=== PATIENT | female | born 1995 | race Caucasian/White ===

== ENCOUNTER 2018-02-21 13:52 | Outpatient (CLI) | payer OTHER ==
[2018-02-21 15:39] VITALS: BP 112/68; PULSE 106; RESP 18; TEMP 97.4
--- NOTE | 2018-02-21 19:15 | P.MSEPDOC ---
Presenting Problems - Arrival Data Date of Arrival on Unit: 02/21/18 Time of Arrival on Unit: 14:50 Mode of Transport: Ambulatory - Complaint OB-Reason for Admission/Chief Complaint: Possible Onset of Labor Comment: reports with contrcations for past hour and loss of mucus plug Medical History - Information : 1 Para: 0 Term: 0 : 0 Abortions: Spontaneous or Elective: 0 Number of Living Children: 0 - Gestational Age Gestational Age by JAYSON (wks/days): 35 Weeks and 5 Days Review of Systems - Review of Systems Constitutional: No problems Breast: No problems ENT: No problems Cardiovascular: No problems Respiratory: No problems Gastrointestinal: No problems Genitourinary: No problems Musculoskeletal: No problems Neurological: No problems Skin: No problems Vital Signs - Temperature Temperature: 97.4 F Temperature Source: Temporal Artery Scan - Pulse Pulse Oximetery Pulse Rate: 106 Pulse Assessment Method: Pulse Oximetry - Respirations Respiratory Rate: 18 Oxygen Delivery Method: Room Air - Blood Pressure Right Arm Blood Pressure: 112/68 Blood Pressure Mean: 82 Blood Pressure Source: Automatic Cuff Medical Screen Scoring (Pre) - Cervical Exam Dilation: 1-3 cm = 1 Effacement: Exam Deferred Membranes: Intact - Uterine Contractions Frequency: N/A Duration: N/A Intensity: N/A - Maternal Vital Signs Maternal Temperature: N/A Maternal Blood Pressure: N/A Signs of Preeclampsia: N/A Maternal Respirations: N/A - Pain Assessment Pain Location and Character: Abdomen Pain Scale Used: Numeric (1 - 10) Pain Intensity: 5 Pain Description: *Acute Pain Frequency: Intermittent Pain Duration: 1 Pain Duration Units: Hours Pain Behavior: None Exhibited Pain Aggravating Factors: Contractions - Maternal Trauma Maternal Trauma: N/A - Assessment Baseline FHR: 140 Heart Rate - NICHD Category: Category I (Normal) = 0 NST: Reactive Position: N/A Station: N/A - Total Score Total Score (Pre): 1 - Level of Risk Level of Risk: Low (0-5) Physician Notification (Pre) - Physician Notified Physician Notified Date: 02/21/18 Physician Notified Time: 15:06 Physician/Practitioner Notifed:: francine Spoke With: francine New Order Received: Yes - Notification Comment Comment: reported pt visit with irregular contractions and no cervical change after one hour, reactive nst. pt may be discharged home Disposition - Disposition OB Disposition: Discharge to home Discharge Date: 02/21/18 Discharge Time: 15:15 I agree with the RN Medical Screening Exam: Yes Risk & Benefit of care provided described in d/c instruction: Yes Diagnosis: FALSE LABOR BEFORE 37 COMPLETED WEEKS OF GEST, THIRD TRI
== END 2018-02-21 15:15 | disposition home or self-care (01) ==
LOC: FBPOP 13:52
PROVIDERS: ATTEND Obstetrics & Gynecology
DX: O47.03 False labor before 37 completed weeks of gestation, third trimester (principal); Z3A.35 35 weeks gestation of pregnancy
CPT/HCPCS: 59025; 99213

== ENCOUNTER 2018-03-07 09:35 | Inpatient (IN) | payer OTHER ==
[2018-03-07] MEDS ORDERED: TERBUTALINE 1 MG/ML VIAL SQ PRN (10:47)
[2018-03-07] MEDS ORDERED: METHYLERGONOVINE 0.2 MG/ML 1 ML AMP IM PRN (10:47)
[2018-03-07] MEDS ORDERED: CARBOPROST TROMETHAMINE 250 MCG/ML 1 ML AMP IM PRN (10:47)
[2018-03-07] MEDS ORDERED: LIDOCAINE 1% (PF) 10 MG/ML (30 ML SDV) SQ PRN (10:47)
[2018-03-07] MEDS ORDERED: BUTORPHANOL 1 MG/ML 1 ML VIAL IV PRN (10:47)
[2018-03-07] MEDS ORDERED: OXYTOCIN 10 UNIT/ML 1 ML VIAL IM PRN (10:47)
[2018-03-07] MEDS ORDERED: OXYTOCIN 20 UNITS/1000 ML NS 1,000 ML IV SCH ×2 (11:00→17:51)
[2018-03-07] MEDS: LACTATED RINGERS 1,000 ML IV SCH ×2 (11:30→15:03)
[2018-03-07 12:11] LABS: Basophils % (A) 0 %; Eosinophils # (A) 0.1 k/uL (0-0.7); Eosinophils % (A) 1 %; HCT 34.1 % (34.0-46.0); HGB 11.1 gm/dL (11.4-16.0); Hypochromasia Slight; Lymphocytes # (A) 1.6 k/uL (1.0-4.8); Lymphocytes % (A) 17 %; MCH 27.2 pg (25.0-35.0); MCHC 32.4 g/dL (31.0-37.0); MCV 83.9 fL (80.0-100.0); Mean Platelet Volume 8.3; Monocytes # (A) 0.7 k/uL (0-1.0); Monocytes % (A) 7 %; Neutrophils # (A) 7.1 k/uL (1.3-7.7); Neutrophils % (A) 74 %; Platelet Count 234 k/uL (150-450); RBC 4.07 m/uL (3.80-5.40); WBC 9.6 k/uL (3.8-10.6)
--- NOTE | 2018-03-07 12:40 | P.HPOB ---
History of Present Illness H&P Date: 03/07/18 Chief Complaint: Spontaneous rupture of membranes This is a 22-year-old female 1 para 0 with an estimated date of confinement of 03/23/2018, estimated gestational age of 37-5/7 weeks, who presents to labor and delivery with complaints of spontaneous rupture of membranes with clear fluid at approximately 7 AM this morning. She complains of irregular contractions. care initially was in [place] and then she transferred care to Dr. Oneal at approximately 31 weeks. Her course has been essentially uncomplicated other than she did not get her 1 hour Glucola done. She did have a hemoglobin A1c drawn last week and the results are pending. labs: Blood type-O positive Antibody screen-negative HIV-nonreactive Hepatitis B surface antigen-negative RPR-nonreactive Rubella-immune Varus a-immune Pap smear-within normal limits GC/chlamydia-negative Hemoglobin-13.2 Group B streptococcus-negative Obstetrical history: . Review of Systems Constitutional: Denies chills, Denies fever Eyes: denies blurred vision, denies pain Ears, nose, mouth and throat: Denies headache, Denies sore throat Cardiovascular: Denies chest pain, Denies shortness of breath Respiratory: Denies cough Gastrointestinal: Reports abdominal pain (Irregular contractions) Genitourinary: Reports pelvic pain, Reports Musculoskeletal: Reports low back pain Neurological: Denies numbness, Denies weakness Psychiatric: Reports anxiety, Reports depression Past Medical History Past Medical History: Thyroid Disorder History of Any Multi-Drug Resistant Organisms: None Reported Past Surgical History: No Surgical Hx Reported Past Anesthesia/Blood Transfusion Reactions: No Reported Reaction Past Psychological History: Anxiety, Depression Smoking Status: Never smoker Past Alcohol Use History: None Reported Past Drug Use History: None Reported - Past Family History Mother Family Medical History: No Reported History Medications and Allergies Home Medications Medication Instructions Recorded Confirmed Type Escitalopram [Lexapro] 10 mg PO DAILY 02/21/18 03/07/18 History RX: Levothyroxine Sodium 25 mcg PO DAILY 02/21/18 03/07/18 History Pnv No.95/Ferrous Fum/Folic AC 1 each PO DAILY 03/07/18 03/07/18 History [ Multivitamin Tablet] Allergies Allergy/AdvReac Type Severity Reaction Status Date / Time gluten Allergy Nausea & Verified 03/07/18 09:52 Vomiting Exam Osteopathic Statement: *. No significant issues noted on an osteopathic structural exam other than those noted in the History and Physical/Consult. Vital Signs Temp Pulse Resp BP Pulse Ox 03/07/18 10:40 98.5 F 81 16 116/69 100 Intake and Output 03/06/18 03/07/18 03/07/18 22:59 06:59 14:59 Other: # Voids 2 Weight 63.957 kg HEENT: Within normal limits Heart: Regular rate and rhythm Lungs: Clear to auscultation bilaterally Abdomen: Cervix: Initially in triage is 2-3 cm/80%/-2 station with positive amnisure and clear fluid noted. heart tones: Reactive Contractions: Every 2-5 minutes Extremities: Negative Homans Results Result Diagrams: 03/07/18 11:32 Abnormal Lab Results - Last 24 Hours (Table) 03/07/18 Range/Units 11:32 Hgb 11.1 L (11.4-16.0) gm/dL Assessment and Plan (1) 37 weeks gestation of Current Visit: Yes Status: Acute Code(s): Z3A.37 - 37 WEEKS GESTATION OF SNOMED Code(s): 02829811 Plan: Admission for early active labor. Oxytocin augmentation of labor. Epidural anesthesia if desired.
[2018-03-07] MEDS ORDERED: ROPIVACAINE 5MG/ML 20ML VIAL ONE (15:15)
[2018-03-07] MEDS ORDERED: fentaNYL (PF) 50 MCG/ML 5 ML AMP ONE (15:15)
[2018-03-07] MEDS ORDERED: SODIUM CHLORIDE 0.9% 100 ML BAG ONE (15:15)
--- NOTE | 2018-03-07 17:09 | P.PROBDLV ---
Vaginal Delivery Note - . Vaginal Delivery Note: The patient progressed to complete dilation after oxytocin augmentation of labor. There was a small bag of water that was still palpated that was ruptured with clear fluid noted also. She did receive epidural anesthesia. Once reaching complete dilation, she began pushing. Infant's head came to a crown. With one further push the 's head delivered across the perineum in a right occiput anterior lie. After delivery the anterior shoulder, nose and mouth were bulb suctioned. With one further push the remainder the easily delivered reducing nuchal cord around the infant's body with delivery. Infant was placed on mother's abdomen and cord was clamped and cut. Infant was taken to warmer for evaluation. A viable male is noted with scores of 8 at 1 minute and 9 at 5 minutes. Infant weight is pending at this time. Placenta delivered shortly thereafter, intact with a three-vessel cord. Uterus contracted well after oxytocin was given and uterine massage was carried out. Inspection of the perineum revealed bilateral periurethral abrasions that were noted to be hemostatic. Estimated blood loss is approximately 150 mL's. Both mother and infant are in stable condition.
[2018-03-07] MEDS ORDERED: diphenhydrAMINE 50 MG CAP PO PRN (17:51)
[2018-03-07] MEDS ORDERED: BENZOCAINE/MENTHOL SPRAY 1 GM/SPRAY AEROSOL TOPICAL PRN (17:51)
[2018-03-07] MEDS ORDERED: WITCH HAZEL 1 EACH MED..PAD TOPICAL PRN (17:51)
[2018-03-07] MEDS ORDERED: ZOLPIDEM 5 MG TAB PO PRN (17:51)
[2018-03-07] MEDS ORDERED: LANOLIN CREAM 5 GM TUBE TOPICAL PRN (17:51)
[2018-03-07] MEDS ORDERED: ACETAMINOPHEN TAB 325 MG TAB PO PRN (17:51)
[2018-03-07] MEDS ORDERED: diphenhydrAMINE 25 MG CAP PO PRN (17:51)
[2018-03-07] MEDS ORDERED: diphenhydrAMINE 50 MG/ML 1 ML VIAL IVP PRN ×2 (17:51)
[2018-03-07] MEDS ORDERED: SIMETHICONE 80 MG CHEWABLE PO PRN (17:51)
[2018-03-07] MEDS ORDERED: HYDROCORTISONE 2.5% RECTAL CREAM 30 GM TUBE RECTAL PRN (17:51)
[2018-03-07] MEDS: SENNOSIDES-DOCUSATE SODIUM 1 EACH TAB PO SCH (23:01)
[2018-03-08] MEDS ORDERED: LEVOTHYROXINE 25 MCG TAB PO SCH (06:30)
--- NOTE | 2018-03-08 08:34 | P.DS ---
Providers Date of admission: 03/07/18 10:42 Expected date of discharge: 03/08/18 Attending physician: Gissel Oneal Primary care physician: Stated None - Discharge Diagnosis(es) (1) 37 weeks gestation of Current Visit: Yes Status: Acute Hospital Course: This is a 22-year-old female 1 para 0 at 37-5/7 weeks, who presented to labor and delivery with complaints of spontaneous rupture membranes and contractions. She underwent oxytocin augmentation of labor and did receive epidural anesthesia. She delivered vaginally a viable male infant on 2017 with scores of 8 at 1 minute and 9 at 5 minutes and weight of 7 lbs. 3 oz. Her course has been uncomplicated. She is bottle feeding. Lochia is decreasing. Pain is fairly well controlled with ibuprofen. Vital signs are stable. Abdomen is soft with fundus firm and nontender. Extremities show negative Homans. Impression is status post vaginal delivery day #1. Plan is to discharge home today. Routine instructions are given. She is advised to follow up in the office with Dr. Oneal in approximately 6 weeks. She is advised to call the office if she has any further questions or concerns prior to her appointment time. Procedures: Oxytocin augmentation of labor Spontaneous vaginal delivery of a viable male infant on 03/07/2018 Patient Condition at Discharge: Stable Plan - Discharge Summary New Discharge Prescriptions: New Ibuprofen [Motrin] 600 mg PO Q6HR PRN #60 tab PRN Reason: Mild Pain Or Fever >= 100.5 Continue Levothyroxine Sodium 25 mcg PO DAILY Escitalopram [Lexapro] 10 mg PO DAILY Pnv No.95/Ferrous Fum/Folic AC [ Multivitamin Tablet] 1 each PO DAILY Discharge Medication List Escitalopram [Lexapro] 10 mg PO DAILY 02/21/18 [History] Levothyroxine Sodium 25 mcg PO DAILY 02/21/18 [History] Pnv No.95/Ferrous Fum/Folic AC [ Multivitamin Tablet] 1 each PO DAILY [History] Ibuprofen [Motrin] 600 mg PO Q6HR PRN #60 tab 03/08/18 [Rx] Follow up Appointment(s)/Referral(s): Gissel Oneal DO [Doctor of Osteopathic Medicine] - 6 Weeks Activity/Diet/Wound Care/Special Instructions: Instructions 1. Do not begin any exercise program for 3 weeks. 2. Do not resume sexual relations for 3 weeks or longer if uncomfortable. 3. You may take tub baths or showers at any time. 4. You may use tampons if desired after 3 weeks. 5. Keep the area of episiotomy (stitches) clean and dry. 6. If you are not nursing, wear a good fitting, supportive bra during the day and limit fluid intake for at least 1 week to prevent breast engorgement. 7. Call the office, [phone], within the next week to make appointment for your 6 week checkup if it has not already been made. 8. Report any of the following occurrences to the doctor promptly: a. Heavy, excessive bleeding b. Chills, fever c. Burning or frequency of urination d. Pain or redness and breasts if nursing e. Increasing pain or swelling in episiotomy (stitches). In addition to the above instructions, the following additional should be followed: 1. No heavy lifting or straining (exercising) until after 6 week checkup. 2. Keep abdominal incision clean and dry: You may wear a dressing if more comfortable. 3. Make office appointment for 10 days after going home or as instructed by her doctor. Discharge Disposition: HOME SELF-CARE
[2018-03-08 08:55] LABS: Basophils % (A) 0 %; Eosinophils % (A) 0 %; HCT 31.6 % (34.0-46.0); HGB 9.9 gm/dL (11.4-16.0); Hypochromasia Slight; Lymphocytes # (A) 1.4 k/uL (1.0-4.8); Lymphocytes % (A) 12 %; MCHC 31.1 g/dL (31.0-37.0); MCV 83.4 fL (80.0-100.0); Mean Platelet Volume 8.1; Monocytes # (A) 0.7 k/uL (0-1.0); Monocytes % (A) 6 %; Neutrophils # (A) 9.3 k/uL (1.3-7.7); Neutrophils % (A) 80 %; Platelet Count 252 k/uL (150-450); RBC 3.79 m/uL (3.80-5.40); RDW 14.2 % (11.5-15.5); WBC 11.7 k/uL (3.8-10.6)
[2018-03-08] MEDS ORDERED: ESCITALOPRAM 10 MG TAB PO SCH (09:00)
[2018-03-08] MEDS: IBUPROFEN 600 MG TAB PO PRN ×2 (09:22→17:25)
[2018-03-08] MEDS: SENNOSIDES-DOCUSATE SODIUM 1 EACH TAB PO SCH (09:39)
[2018-03-08 17:37] VITALS: BP 105/82; PULSE 78; RESP 18; TEMP 98.1
== END 2018-03-08 18:08 | disposition home or self-care (01) | DRG 775 ==
LOC: FBPOP 09:35 → 4FBP 10:42
PROVIDERS: ADMIT Obstetrics & Gynecology; ATTEND Obstetrics & Gynecology
PROC: 10E0XZZ Delivery of Products of Conception, External Approach (ICD-10-PCS; principal; 2018-03-07)
PROC: 10907ZC Drainage of Amniotic Fluid, Therapeutic from Products of Conception, Via Natural or Artificial Opening (ICD-10-PCS; principal; 2018-03-07)
DX: O69.81X0 Labor and delivery complicated by cord around neck, without compression, not applicable or unspecified (principal); Z37.0 Single live birth; O99.344 Other mental disorders complicating childbirth; F32.9 Major depressive disorder, single episode, unspecified; F41.9 Anxiety disorder, unspecified; Z3A.37 37 weeks gestation of pregnancy; Z79.899 Other long term (current) drug therapy; O99.284 Endocrine, nutritional and metabolic diseases complicating childbirth; E07.9 Disorder of thyroid, unspecified; Z79.890 Hormone replacement therapy; Z91.018 Allergy to other foods
CPT/HCPCS: 59025; 84112; 85025; 99213

== ENCOUNTER 2020-10-07 04:33 | Emergency (ER) | payer OTHER ==
[2020-10-07 04:40] VITALS: TEMP 98.3
[2020-10-07] MEDS ORDERED: SODIUM CHLORIDE 0.9% 1,000 ML IV STA (05:01)
[2020-10-07] MEDS ORDERED: ONDANSETRON 4 MG/2 ML VIAL IVP STA (05:01)
--- NOTE | 2020-10-07 05:04 | ED ---
Syncope HPI - General Chief Complaint: Allergic Reaction Stated Complaint: Possible Allergic Reaction Time Seen by Provider: 10/07/20 04:54 Source: patient, family Mode of arrival: ambulatory Limitations: no limitations - History of Present Illness Initial Comments: This is a 25-year-old female DF for evaluation. Patient having shaking near syncopal type of reaction recently started back on thyroid medication and anxiety medication. Patient states she suffered from severe anxiety she did recently stop her anxiety medication a few months ago because she ran out of it did not follow back up with primary care. At that time patient did stop the col d turkey. Patient states she's had symptoms like this before she thought it may related to medication anxiety was unsure. No recent travel history or sick contacts or fevers cough or congestion. Mild nausea no vomiting. MD Complaint: felt faint, almost passed out -: hour(s) Prodromal Symptoms: vision changes, lightheaded, palpitations, heart racing, nausea/vomiting Description of Event: focal shaking -: minutes(s) Witnessed: no Injuries Sustained Associated with Event: None Current Symptoms: lightheaded, nausea, weakness History: previous syncopal episode Context: getting out of bed Treatments Prior to Arrival: none - Related Data Home Medications Medication Instructions Recorded Confirmed Levothyroxine Sodium 25 mcg PO DAILY 02/21/18 10/07/20 Previous Rx's Medication Instructions Recorded Ondansetron Odt [Zofran Odt] 4 mg PO Q8HR PRN #10 tab 10/07/20 Allergies Allergy/AdvReac Type Severity Reaction Status Date / Time escitalopram [From Lexapro] AdvReac shaking Verified 10/07/20 20:51 Review of Systems ROS Statement: Those systems with pertinent positive or pertinent negative responses have been documented in the HPI. ROS Other: All systems not noted in ROS Statement are negative. Past Medical History Past Medical History: Thyroid Disorder History of Any Multi-Drug Resistant Organisms: None Reported Past Surgical History: No Surgical Hx Reported Past Anesthesia/Blood Transfusion Reactions: No Reported Reaction Past Psychological History: Anxiety, Depression Smoking Status: Never smoker Past Alcohol Use History: None Reported Past Drug Use History: None Reported - Past Family History Mother Family Medical History: No Reported History General Exam Limitations: no limitations General appearance: anxious Head exam: Present: atraumatic, normocephalic, normal inspection Eye exam: Present: normal appearance, PERRL, EOMI. Absent: scleral icterus, conjunctival injection, periorbital swelling ENT exam: Present: normal exam, mucous membranes moist Neck exam: Present: normal inspection. Absent: tenderness, meningismus, lymphadenopathy Respiratory exam: Present: normal lung sounds bilaterally. Absent: respiratory distress, wheezes, rales, rhonchi, stridor Cardiovascular Exam: Present: regular rate, normal rhythm, normal heart sounds. Absent: systolic murmur, diastolic murmur, rubs, gallop, clicks GI/Abdominal exam: Present: soft, normal bowel sounds. Absent: distended, tenderness, guarding, rebound, rigid Extremities exam: Present: normal inspection, full ROM, normal capillary refill. Absent: tenderness, pedal edema, joint swelling, calf tenderness Back exam: Present: normal inspection Neurological exam: Present: alert, oriented X3, CN II-XII intact Psychiatric exam: Present: normal affect, normal mood Skin exam: Present: warm, dry, intact, normal color. Absent: rash Course Vital Signs 10/07/20 10/07/20 04:35 07:03 Temperature 98.3 F Pulse Rate 97 82 Respiratory 24 18 Rate Blood Pressure 117/67 110/62 O2 Sat by Pulse 99 98 Oximetry - Reevaluation(s) Reevaluation #1: Medical record is reviewed Patient has improved symptoms here in the ER Patient feels better Patient family informed results questions are answered Patient feels good for discharge EKG Findings - EKG Comments: EKG Findings:: EKG shows sinus rhythm 92 DE 134 QRS 106 QTC 487 Medical Decision Making - Medical Decision Making 25 female DF for evaluation. Patient is medication reaction ALLERGIC reaction. At this time patient can be discharged home to - Lab Data Result diagrams: 10/07/20 05:05 10/07/20 05:05 Lab Results 10/07/20 10/07/20 10/07/20 Range/Units 05:05 05:05 05:05 WBC 9.3 (3.8-10.6) k/uL RBC 5.21 (3.80-5.40) m/uL Hgb 15.3 (11.4-16.0) gm/dL Hct 44.8 (34.0-46.0) % MCV 86.0 (80.0-100.0) fL MCH 29.3 (25.0-35.0) pg MCHC 34.1 (31.0-37.0) g/dL RDW 12.3 (11.5-15.5) % Plt Count 322 (150-450) k/uL MPV 7.8 Neutrophils % 79 % Lymphocytes % 13 % Monocytes % 6 % Eosinophils % 1 % Basophils % 1 % Neutrophils # 7.3 (1.3-7.7) k/uL Lymphocytes # 1.2 (1.0-4.8) k/uL Monocytes # 0.5 (0-1.0) k/uL Eosinophils # 0.1 (0-0.7) k/uL Basophils # 0.1 (0-0.2) k/uL D-Dimer (<0.60) mg/L FEU Sodium 138 (137-145) mmol/L Potassium 4.2 (3.5-5.1) mmol/L Chloride 100 (98-107) mmol/L Carbon Dioxide 25 (22-30) mmol/L Anion Gap 13 mmol/L BUN 6 L (7-17) mg/dL Creatinine 0.62 (0.52-1.04) mg/dL Est GFR (CKD-EPI)AfAm >90 (>60 ml/min/1.73 sqM) Est GFR (CKD-EPI)NonAf >90 (>60 ml/min/1.73 sqM) Glucose 106 H (74-99) mg/dL Calcium 9.8 (8.4-10.2) mg/dL Phosphorus 3.6 (2.5-4.5) mg/dL Magnesium 1.8 (1.6-2.3) mg/dL Total Bilirubin 1.0 (0.2-1.3) mg/dL AST 23 (14-36) U/L ALT 14 (4-34) U/L Alkaline Phosphatase 56 (38-126) U/L Troponin I <0.012 (0.000-0.034) ng/mL NT-Pro-B Natriuret Pep pg/mL Total Protein 8.5 H (6.3-8.2) g/dL Albumin 5.1 H (3.5-5.0) g/dL TSH 7.150 H (0.465-4.680) mIU/L Urine Color Urine Appearance (Clear) Urine pH (5.0-8.0) Ur Specific [place] (1.001-1.035) Urine Protein (Negative) Urine Glucose (UA) (Negative) Urine Ketones (Negative) Urine Blood (Negative) Urine Nitrite (Negative) Urine Bilirubin (Negative) Urine Urobilinogen (<2.0) mg/dL Ur Leukocyte Esterase (Negative) Urine RBC (0-5) /hpf Urine WBC (0-5) /hpf Ur Squamous Epith Cells (0-4) /hpf Urine Mucus (None) /hpf Urine HCG, Qual (Not Detectd) 10/07/20 10/07/20 10/07/20 Range/Units 05:05 05:05 05:19 WBC (3.8-10.6) k/uL RBC (3.80-5.40) m/uL Hgb (11.4-16.0) gm/dL Hct (34.0-46.0) % MCV (80.0-100.0) fL MCH (25.0-35.0) pg MCHC (31.0-37.0) g/dL RDW (11.5-15.5) % Plt Count (150-450) k/uL MPV Neutrophils % % Lymphocytes % % Monocytes % % Eosinophils % % Basophils % % Neutrophils # (1.3-7.7) k/uL Lymphocytes # (1.0-4.8) k/uL Monocytes # (0-1.0) k/uL Eosinophils # (0-0.7) k/uL Basophils # (0-0.2) k/uL D-Dimer <0.17 (<0.60) mg/L FEU Sodium (137-145) mmol/L Potassium (3.5-5.1) mmol/L Chloride (98-107) mmol/L Carbon Dioxide (22-30) mmol/L Anion Gap mmol/L BUN (7-17) mg/dL Creatinine (0.52-1.04) mg/dL Est GFR (CKD-EPI)AfAm (>60 ml/min/1.73 sqM) Est GFR (CKD-EPI)NonAf (>60 ml/min/1.73 sqM) Glucose (74-99) mg/dL Calcium (8.4-10.2) mg/dL Phosphorus (2.5-4.5) mg/dL Magnesium (1.6-2.3) mg/dL Total Bilirubin (0.2-1.3) mg/dL AST (14-36) U/L ALT (4-34) U/L Alkaline Phosphatase (38-126) U/L Troponin I (0.000-0.034) ng/mL NT-Pro-B Natriuret Pep 24 pg/mL Total Protein (6.3-8.2) g/dL Albumin (3.5-5.0) g/dL TSH (0.465-4.680) mIU/L Urine Color Yellow Urine Appearance Cloudy H (Clear) Urine pH 6.0 (5.0-8.0) Ur Specific [place] 1.011 (1.001-1.035) Urine Protein Trace H (Negative) Urine Glucose (UA) Negative (Negative) Urine Ketones 1+ H (Negative) Urine Blood Negative (Negative) Urine Nitrite Negative (Negative) Urine Bilirubin Negative (Negative) Urine Urobilinogen <2.0 (<2.0) mg/dL Ur Leukocyte Esterase Negative (Negative) Urine RBC 1 (0-5) /hpf Urine WBC 5 (0-5) /hpf Ur Squamous Epith Cells 5 H (0-4) /hpf Urine Mucus Many H (None) /hpf Urine HCG, Qual (Not Detectd) 10/07/20 Range/Units 05:19 WBC (3.8-10.6) k/uL RBC (3.80-5.40) m/uL Hgb (11.4-16.0) gm/dL Hct (34.0-46.0) % MCV (80.0-100.0) fL MCH (25.0-35.0) pg MCHC (31.0-37.0) g/dL RDW (11.5-15.5) % Plt Count (150-450) k/uL MPV Neutrophils % % Lymphocytes % % Monocytes % % Eosinophils % % Basophils % % Neutrophils # (1.3-7.7) k/uL Lymphocytes # (1.0-4.8) k/uL Monocytes # (0-1.0) k/uL Eosinophils # (0-0.7) k/uL Basophils # (0-0.2) k/uL D-Dimer (<0.60) mg/L FEU Sodium (137-145) mmol/L Potassium (3.5-5.1) mmol/L Chloride (98-107) mmol/L Carbon Dioxide (22-30) mmol/L Anion Gap mmol/L BUN (7-17) mg/dL Creatinine (0.52-1.04) mg/dL Est GFR (CKD-EPI)AfAm (>60 ml/min/1.73 sqM) Est GFR (CKD-EPI)NonAf (>60 ml/min/1.73 sqM) Glucose (74-99) mg/dL Calcium (8.4-10.2) mg/dL Phosphorus (2.5-4.5) mg/dL Magnesium (1.6-2.3) mg/dL Total Bilirubin (0.2-1.3) mg/dL AST (14-36) U/L ALT (4-34) U/L Alkaline Phosphatase (38-126) U/L Troponin I (0.000-0.034) ng/mL NT-Pro-B Natriuret Pep pg/mL Total Protein (6.3-8.2) g/dL Albumin (3.5-5.0) g/dL TSH (0.465-4.680) mIU/L Urine Color Urine Appearance (Clear) Urine pH (5.0-8.0) Ur Specific [place] (1.001-1.035) Urine Protein (Negative) Urine Glucose (UA) (Negative) Urine Ketones (Negative) Urine Blood (Negative) Urine Nitrite (Negative) Urine Bilirubin (Negative) Urine Urobilinogen (<2.0) mg/dL Ur Leukocyte Esterase (Negative) Urine RBC (0-5) /hpf Urine WBC (0-5) /hpf Ur Squamous Epith Cells (0-4) /hpf Urine Mucus (None) /hpf Urine HCG, Qual Not Detected (Not Detectd) Disposition Clinical Impression: Weakness, Allergic reaction to drug, Anxiety, Near syncope Disposition: HOME SELF-CARE Condition: Good Instructions (If sedation given, give patient instructions): Near Syncope (ED) Is patient prescribed a controlled substance at d/c from ED?: No Referrals: None,Stated [REFERRING] - 1-2 days
[2020-10-07 05:30] LABS: Basophils # (A) 0.1 k/uL (0-0.2); Basophils % (A) 1 %; Eosinophils # (A) 0.1 k/uL (0-0.7); Eosinophils % (A) 1 %; HCT 44.8 % (34.0-46.0); HGB 15.3 gm/dL (11.4-16.0); Lymphocytes # (A) 1.2 k/uL (1.0-4.8); Lymphocytes % (A) 13 %; MCH 29.3 pg (25.0-35.0); MCHC 34.1 g/dL (31.0-37.0); Mean Platelet Volume 7.8; Monocytes # (A) 0.5 k/uL (0-1.0); Monocytes % (A) 6 %; Neutrophils # (A) 7.3 k/uL (1.3-7.7); Neutrophils % (A) 79 %; Platelet Count 322 k/uL (150-450); RBC 5.21 m/uL (3.80-5.40); RDW 12.3 % (11.5-15.5); WBC 9.3 k/uL (3.8-10.6)
[2020-10-07 05:43] LABS: Appearance,Urine Cloudy (Clear); Bilirubin,Urine Negative (Negative); Blood,Urine Negative (Negative); Color,Urine Yellow; Glucose,Urine (UA) Negative (Negative); Ketones,Urine 1+ (Negative); Leukocyte Esterase,Urine Negative (Negative); Mucus,Urine Many /hpf; Nitrite,Urine Negative (Negative); Protein,Urine Trace (Negative); RBC,Urine 1 /hpf (0-5); Specific Gravity,Urine 1.011 (1.001-1.035); Squamous Epithelial Cell,Urine 5 /hpf (0-4); Urobilinogen,Urine <2.0 mg/dL (<2.0); WBC,Urine 5 /hpf (0-5)
[2020-10-07 05:45] LABS: ALT 14 U/L (4-34); AST 23 U/L (14-36); African American GFR (CKD) >90 (>60 ml/min/1.73 sqM); Albumin 5.1 g/dL (3.5-5.0); Alkaline Phosphatase 56 U/L (38-126); Anion Gap 13 mmol/L; Blood Urea Nitrogen 6 mg/dL (7-17); Calcium 9.8 mg/dL (8.4-10.2); Carbon Dioxide 25 mmol/L (22-30); Chloride 100 mmol/L (98-107); Glucose 106 mg/dL (74-99); Magnesium 1.8 mg/dL (1.6-2.3); Non-African American GFR(CKD) >90 (>60 ml/min/1.73 sqM); Phosphorus 3.6 mg/dL (2.5-4.5); Potassium 4.2 mmol/L (3.5-5.1); Sodium 138 mmol/L (137-145); Total Protein 8.5 g/dL (6.3-8.2)
[2020-10-07 07:04] VITALS: BP 110/62; PULSE 82; RESP 18
[2020-10-07] MEDS ORDERED: PROCHLORPERAZINE INJ 10 MG/2 ML VIAL IVP STA (07:04)
[2020-10-07] MEDS ORDERED: ONDANSETRON ODT 4 MG TAB PO STA (07:05)
== END 2020-10-07 07:21 | disposition home or self-care (01) ==
LOC: EC 04:33
DX: R25.1 Tremor, unspecified (principal); R55 Syncope and collapse; R53.1 Weakness; T50.905A Adverse effect of unspecified drugs, medicaments and biological substances, initial encounter; F41.9 Anxiety disorder, unspecified; E07.9 Disorder of thyroid, unspecified; Z79.890 Hormone replacement therapy; Z88.8 Allergy status to other drugs, medicaments and biological substances
CPT/HCPCS: 36415; 93005; 85379; 83880; 80053; 83735; 84100; 84443; 84484; 85025; 81001; 81025; 99284; 96374; 96375; 96361; J0780; J2405

== ENCOUNTER 2020-10-07 20:06 | Emergency (ER) | payer OTHER ==
[2020-10-07 20:12] VITALS: BP 113/69; PULSE 98; RESP 16; TEMP 98.4
--- NOTE | 2020-10-07 20:42 | ED ---
Allergic Reaction HPI - General Chief complaint: Allergic Reaction Stated complaint: Revisit reaction to meds Time Seen by Provider: 10/07/20 20:15 Source: patient Mode of arrival: wheelchair Limitations: no limitations - History of Present Illness Initial Comments: 25-year-old female presents to emergency Department with a chief complaint of ALLERGIC reaction. Patient states she began feeling lightheaded several days ago and saw her primary care physician yesterday who restarted her thyroid medication and her Lexapro due to increased anxiety. Patient reports last night she took a stable dose of 10 mg of Lexapro which she has not taken in over 6 months. Patient reports beginning to feel dizzy where the room was spinning around her, increased anxiety, chest tightness , nausea but no vomiting and blurry vision in both eyes. Patient states she was evaluated early this morning and this emergency department and was discharged with outpatient follow-up. She states after she went to sleep, she woke up with the exact same symptoms. Patient reports that her "body feels heavy". She denies any one-sided weakness or paresthesias. She denies any headaches or shortness of breath. Patient is not taking her Synthroid yet. - Related Data Home Medications Medication Instructions Recorded Confirmed Levothyroxine Sodium 25 mcg PO DAILY 02/21/18 10/07/20 Previous Rx's Medication Instructions Recorded Ondansetron Odt [Zofran Odt] 4 mg PO Q8HR PRN #10 tab 10/07/20 Allergies Allergy/AdvReac Type Severity Reaction Status Date / Time escitalopram [From Lexapro] AdvReac shaking Verified 10/07/20 20:51 Review of Systems ROS Statement: Those systems with pertinent positive or pertinent negative responses have been documented in the HPI. ROS Other: All systems not noted in ROS Statement are negative. Past Medical History Past Medical History: Thyroid Disorder History of Any Multi-Drug Resistant Organisms: None Reported Past Surgical History: No Surgical Hx Reported Past Anesthesia/Blood Transfusion Reactions: No Reported Reaction Past Psychological History: Anxiety, Depression Smoking Status: Never smoker Past Alcohol Use History: None Reported Past Drug Use History: None Reported - Past Family History Mother Family Medical History: No Reported History General Exam Limitations: no limitations General appearance: alert, in no apparent distress, anxious Head exam: Present: atraumatic, normocephalic, normal inspection Eye exam: Present: normal appearance, PERRL, EOMI Pupils: Present: normal accommodation ENT exam: Present: normal exam, normal oropharynx, mucous membranes moist, TM's normal bilaterally, normal external ear exam Neck exam: Present: normal inspection, full ROM Respiratory exam: Present: normal lung sounds bilaterally. Absent: respiratory distress, wheezes, rales, rhonchi, stridor, chest wall tenderness, accessory muscle use Cardiovascular Exam: Present: regular rate, normal rhythm, normal heart sounds GI/Abdominal exam: Present: soft. Absent: distended, tenderness, guarding, rigid Extremities exam: Present: normal inspection, full ROM, normal capillary refill, other (Palpable ulnar and radial pulses. Palpable DP and PT bilaterally.). Absent: tenderness, pedal edema, joint swelling, calf tenderness Back exam: Present: normal inspection, full ROM. Absent: tenderness, CVA tenderness (R), CVA tenderness (L) Neurological exam: Present: alert, oriented X3, CN II-XII intact, normal gait Expanded Speech: Present: fluid speech Cranial nerves: EOM's Intact: Normal, Nystagmus: Normal Psychiatric exam: Present: normal affect, normal mood, anxious Skin exam: Present: warm, dry, intact, normal color. Absent: rash Course Vital Signs 10/07/20 20:08 Temperature 98.4 F Pulse Rate 98 Respiratory 16 Rate Blood Pressure 113/69 O2 Sat by Pulse 99 Oximetry - Reevaluation(s) Reevaluation #1: 10/08/20 00:21 Medical records reviewed Medical Decision Making - Medical Decision Making 25-year-old female presents emergency Department with a chief complaint of ALLERGIC reaction. Physical examination is unremarkable. No focal neural deficits. Vital signs were within normal limits. This morning patient had a thorough laboratory workup without significant finding. She did have elevated TSH but T3 levels were not obtained. Patient will restart her Synthroid tonight. She is feeling a bit anxious during her ED course. I spoke with inpatient pharmacy regarding possible side effects of the Lexapro which do include lightheadedness and dizziness. The medication will be completely limited from her system and 27-33 hours. Currently only 23 hours have passed. Patient had the same reaction to another antidepressant. I advised the patient to stop taking the Lexapro. She was given Zofran 4 symptomatic relief. Patient was advised to return to emergency department if symptoms worsen. Case discussed with Disposition Clinical Impression: Nausea, Anxiety Disposition: HOME SELF-CARE Condition: Stable Instructions (If sedation given, give patient instructions): Near Syncope (ED) Additional Instructions: Restart your thyroid replacement therapy. Follow-up with your primary care physician. Please return to the Emergency Department if symptoms worsen or any other concerns. Prescriptions: Ondansetron Odt [Zofran Odt] 4 mg PO Q8HR PRN #10 tab PRN Reason: Nausea Is patient prescribed a controlled substance at d/c from ED?: No Referrals: Mariola Estrada DO [Primary Care Provider] - 1-2 days Time of Disposition: 21:40
[2020-10-07] MEDS ORDERED: ONDANSETRON 4 MG ODT STARTER PACK 2 TAB BTL PO STA (21:43)
== END 2020-10-07 22:19 | disposition home or self-care (01) ==
LOC: EC 20:06
DX: F41.9 Anxiety disorder, unspecified (principal); R11.0 Nausea; E07.9 Disorder of thyroid, unspecified; Z79.890 Hormone replacement therapy; Z88.8 Allergy status to other drugs, medicaments and biological substances
CPT/HCPCS: 99283; S0119

== ENCOUNTER 2020-10-22 01:17 | Inpatient (IN) | payer OTHER ==
[2020-10-22] MEDS ORDERED: NITROGLYCERIN SL TABS 0.4 MG TAB SUBLINGUAL PRN (02:20)
--- NOTE | 2020-10-22 02:23 | ED ---
Syncope HPI - General Chief Complaint: Abdominal Pain Stated Complaint: nausea, abd pain Time Seen by Provider: 10/22/20 01:49 Source: patient, RN notes reviewed, old records reviewed Mode of arrival: ambulatory Limitations: no limitations - History of Present Illness Initial Comments: This is a 25-year-old female DF for evaluation. Patient is patient prescribed by symptoms in the past. Patient's with severe nausea, and multiple episodes of near-syncope decreased appetite bodyaches and pains. Patient states her outpatient basis she recently had an echocardiogram and told there was fluid around her heart and probably 6 as well as potassium. Patient herself states his does not improved her symptoms she just feels increasingly weak increasingly fatigued and tired. Patient denies possibility of , no headache or current chest pain. He does have difficulty with pain all over states the gets severe tachycardic episode sometime in the 150s. MD Complaint: felt faint, almost passed out -: week(s) Prodromal Symptoms: lightheaded, palpitations, shortness of breath, diaphoresis -: second(s) Witnessed: no Injuries Sustained Associated with Event: None Current Symptoms: lightheaded, shortness of breath History: previous syncopal episode Context: at rest Treatments Prior to Arrival: none - Related Data Home Medications Medication Instructions Recorded Confirmed Levothyroxine Sodium 25 mcg PO DAILY 02/21/18 10/22/20 Furosemide [Lasix] 20 mg PO DAILY 10/22/20 10/22/20 Potassium Chloride ER [K-Dur 10] 10 meq PO DAILY 10/22/20 10/22/20 Previous Rx's Medication Instructions Recorded Ondansetron Odt [Zofran Odt] 4 mg PO Q8HR PRN #10 tab 10/07/20 Allergies Allergy/AdvReac Type Severity Reaction Status Date / Time alprazolam AdvReac Unknown Verified 10/25/20 18:56 escitalopram [From Lexapro] AdvReac shaking Verified 10/22/20 06:46 Review of Systems ROS Statement: Those systems with pertinent positive or pertinent negative responses have been documented in the HPI. ROS Other: All systems not noted in ROS Statement are negative. Past Medical History Past Medical History: Thyroid Disorder History of Any Multi-Drug Resistant Organisms: None Reported Past Surgical History: No Surgical Hx Reported Past Anesthesia/Blood Transfusion Reactions: No Reported Reaction Past Psychological History: Anxiety, Depression Smoking Status: Never smoker Past Alcohol Use History: None Reported Past Drug Use History: None Reported - Past Family History Mother Family Medical History: No Reported History General Exam Limitations: no limitations General appearance: alert, in no apparent distress, anxious Head exam: Present: atraumatic, normocephalic, normal inspection Eye exam: Present: normal appearance, PERRL, EOMI. Absent: scleral icterus, conjunctival injection, periorbital swelling ENT exam: Present: normal exam, mucous membranes moist Neck exam: Present: normal inspection. Absent: tenderness, meningismus, lymphadenopathy Respiratory exam: Present: normal lung sounds bilaterally. Absent: respiratory distress, wheezes, rales, rhonchi, stridor Cardiovascular Exam: Present: regular rate, normal rhythm, normal heart sounds. Absent: systolic murmur, diastolic murmur, rubs, gallop, clicks GI/Abdominal exam: Present: soft, normal bowel sounds. Absent: distended, tenderness, guarding, rebound, rigid Extremities exam: Present: normal inspection, full ROM, normal capillary refill. Absent: tenderness, pedal edema, joint swelling, calf tenderness Back exam: Present: normal inspection Neurological exam: Present: alert, oriented X3, CN II-XII intact Psychiatric exam: Present: normal affect, normal mood Skin exam: Present: warm, dry, intact, normal color. Absent: rash Course Vital Signs 10/22/20 10/22/20 01:21 09:26 Temperature 98.1 F Pulse Rate 95 92 Respiratory 20 16 Rate Blood Pressure 103/65 111/72 O2 Sat by Pulse 99 99 Oximetry - Reevaluation(s) Reevaluation #1: Medical record is reviewed Patient symptoms improved here in the ER patient symptoms remain stable Patient family informed of results, questions have been answered EKG Findings - EKG Comments: EKG Findings:: EKG is sinus rhythm 74 [place] 132 QRS 108 QTc 439 Medical Decision Making - Medical Decision Making 25 female to the ER for evaluation regards to abdominal pain. Chest pain. Patient states she was briefly started on medications for possibly having fluid around her heart rate that has not helped she feels like she has multiple recurrent episodes or near syncopal episodes. Patient be admitted for cardiology to evaluate and manage - Lab Data Result diagrams: 10/25/20 05:37 10/25/20 05:37 Lab Results 10/22/20 10/22/2010/22/21 Range/Units 02:33 02:33 02:33 WBC 10.6 (3.8-10.6) k/uL RBC 5.02 (3.80-5.40) m/uL Hgb 14.5 (11.4-16.0) gm/dL Hct 43.3 (34.0-46.0) % MCV 86.2 (80.0-100.0) fL MCH 29.0 (25.0-35.0) pg MCHC 33.6 (31.0-37.0) g/dL RDW 12.9 (11.5-15.5) % Plt Count 217 (150-450) k/uL MPV 8.0 Neutrophils % 78 % Lymphocytes % 14 % Monocytes % 6 % Eosinophils % 1 % Basophils % 0 % Neutrophils # 8.2 H (1.3-7.7) k/uL Lymphocytes # 1.5 (1.0-4.8) k/uL Monocytes # 0.7 (0-1.0) k/uL Eosinophils # 0.1 (0-0.7) k/uL Basophils # 0.0 (0-0.2) k/uL ESR (0-20) mm/hr PT (9.0-12.0) sec INR (<1.2) APTT (22.0-30.0) sec Sodium 139 (137-145) mmol/L Potassium 3.4 L (3.5-5.1) mmol/L Chloride 101 (98-107) mmol/L Carbon Dioxide 26 (22-30) mmol/L Anion Gap 12 mmol/L BUN 5 L (7-17) mg/dL Creatinine 0.54 (0.52-1.04) mg/dL Est GFR (CKD-EPI)AfAm >90 (>60 ml/min/1.73 sqM) Est GFR (CKD-EPI)NonAf >90 (>60 ml/min/1.73 sqM) Glucose 95 (74-99) mg/dL Calcium 9.6 (8.4-10.2) mg/dL Phosphorus 3.9 (2.5-4.5) mg/dL Magnesium 1.8 (1.6-2.3) mg/dL Total Bilirubin 0.7 (0.2-1.3) mg/dL AST 21 (14-36) U/L ALT 13 (4-34) U/L Alkaline Phosphatase 55 (38-126) U/L Creatine Kinase 73 (30-135) U/L CK-MB (CK-2) <0.2 (0.0-2.4) ng/mL Troponin I <0.012 (0.000-0.034) ng/mL C-Reactive Protein (<10.0) mg/L NT-Pro-B Natriuret Pep pg/mL Total Protein 7.5 (6.3-8.2) g/dL Albumin 4.6 (3.5-5.0) g/dL Triglycerides (<150) mg/dL Cholesterol (<200) mg/dL LDL Cholesterol, Calc (0-99) mg/dL HDL Cholesterol (40-60) mg/dL Urine Color Urine Appearance (Clear) Urine pH (5.0-8.0) Ur Specific Riparius (1.001-1.035) Urine Protein (Negative) Urine Glucose (UA) (Negative) Urine Ketones (Negative) Urine Blood (Negative) Urine Nitrite (Negative) Urine Bilirubin (Negative) Urine Urobilinogen (<2.0) mg/dL Ur Leukocyte Esterase (Negative) Urine WBC (0-5) /hpf Ur Squamous Epith Cells (0-4) /hpf Amorphous Sediment (None) /hpf Urine HCG, Qual (Not Detectd) Salicylates <1.0 mg/dL Acetaminophen <10.0 ug/mL SHYANN Screen (NEGATIVE) Coronavirus (PCR) (Not Detectd) 10/22/20 10/22/20 10/22/20 Range/Units 02:33 02:33 02:52 WBC (3.8-10.6) k/uL RBC (3.80-5.40) m/uL Hgb (11.4-16.0) gm/dL Hct (34.0-46.0) % MCV (80.0-100.0) fL MCH (25.0-35.0) pg MCHC (31.0-37.0) g/dL RDW (11.5-15.5) % Plt Count (150-450) k/uL MPV Neutrophils % % Lymphocytes % % Monocytes % % Eosinophils % % Basophils % % Neutrophils # (1.3-7.7) k/uL Lymphocytes # (1.0-4.8) k/uL Monocytes # (0-1.0) k/uL Eosinophils # (0-0.7) k/uL Basophils # (0-0.2) k/uL ESR (0-20) mm/hr PT (9.0-12.0) sec INR (<1.2) APTT (22.0-30.0) sec Sodium (137-145) mmol/L Potassium (3.5-5.1) mmol/L Chloride (98-107) mmol/L Carbon Dioxide (22-30) mmol/L Anion Gap mmol/L BUN (7-17) mg/dL Creatinine (0.52-1.04) mg/dL Est GFR (CKD-EPI)AfAm (>60 ml/min/1.73 sqM) Est GFR (CKD-EPI)NonAf (>60 ml/min/1.73 sqM) Glucose (74-99) mg/dL Calcium (8.4-10.2) mg/dL Phosphorus (2.5-4.5) mg/dL Magnesium (1.6-2.3) mg/dL Total Bilirubin (0.2-1.3) mg/dL AST (14-36) U/L ALT (4-34) U/L Alkaline Phosphatase (38-126) U/L Creatine Kinase (30-135) U/L CK-MB (CK-2) (0.0-2.4) ng/mL Troponin I (0.000-0.034) ng/mL C-Reactive Protein (<10.0) mg/L NT-Pro-B Natriuret Pep 30 pg/mL Total Protein (6.3-8.2) g/dL Albumin (3.5-5.0) g/dL Triglycerides (<150) mg/dL Cholesterol (<200) mg/dL LDL Cholesterol, Calc (0-99) mg/dL HDL Cholesterol (40-60) mg/dL Urine Color Urine Appearance (Clear) Urine pH (5.0-8.0) Ur Specific Riparius (1.001-1.035) Urine Protein (Negative) Urine Glucose (UA) (Negative) Urine Ketones (Negative) Urine Blood (Negative) Urine Nitrite (Negative) Urine Bilirubin (Negative) Urine Urobilinogen (<2.0) mg/dL Ur Leukocyte Esterase (Negative) Urine WBC (0-5) /hpf Ur Squamous Epith Cells (0-4) /hpf Amorphous Sediment (None) /hpf Urine HCG, Qual (Not Detectd) Salicylates mg/dL Acetaminophen ug/mL SHYANN Screen NEGATIVE (NEGATIVE) Coronavirus (PCR) Not Detected (Not Detectd) 10/22/20 10/22/20 10/22/20 Range/Units 05:00 05:00 05:28 WBC (3.8-10.6) k/uL RBC (3.80-5.40) m/uL Hgb (11.4-16.0) gm/dL Hct (34.0-46.0) % MCV (80.0-100.0) fL MCH (25.0-35.0) pg MCHC (31.0-37.0) g/dL RDW (11.5-15.5) % Plt Count (150-450) k/uL MPV Neutrophils % % Lymphocytes % % Monocytes % % Eosinophils % % Basophils % % Neutrophils # (1.3-7.7) k/uL Lymphocytes # (1.0-4.8) k/uL Monocytes # (0-1.0) k/uL Eosinophils # (0-0.7) k/uL Basophils # (0-0.2) k/uL ESR (0-20) mm/hr PT (9.0-12.0) sec INR (<1.2) APTT (22.0-30.0) sec Sodium (137-145) mmol/L Potassium (3.5-5.1) mmol/L Chloride (98-107) mmol/L Carbon Dioxide (22-30) mmol/L Anion Gap mmol/L BUN (7-17) mg/dL Creatinine (0.52-1.04) mg/dL Est GFR (CKD-EPI)AfAm (>60 ml/min/1.73 sqM) Est GFR (CKD-EPI)NonAf (>60 ml/min/1.73 sqM) Glucose (74-99) mg/dL Calcium (8.4-10.2) mg/dL Phosphorus (2.5-4.5) mg/dL Magnesium (1.6-2.3) mg/dL Total Bilirubin (0.2-1.3) mg/dL AST (14-36) U/L ALT (4-34) U/L Alkaline Phosphatase (38-126) U/L Creatine Kinase (30-135) U/L CK-MB (CK-2) (0.0-2.4) ng/mL Troponin I <0.012 (0.000-0.034) ng/mL C-Reactive Protein (<10.0) mg/L NT-Pro-B Natriuret Pep pg/mL Total Protein (6.3-8.2) g/dL Albumin (3.5-5.0) g/dL Triglycerides (<150) mg/dL Cholesterol (<200) mg/dL LDL Cholesterol, Calc (0-99) mg/dL HDL Cholesterol (40-60) mg/dL Urine Color Colorless Urine Appearance Cloudy H (Clear) Urine pH 6.5 (5.0-8.0) Ur Specific Riparius 1.002 (1.001-1.035) Urine Protein Negative (Negative) Urine Glucose (UA) Negative (Negative) Urine Ketones Negative (Negative) Urine Blood Negative (Negative) Urine Nitrite Negative (Negative) Urine Bilirubin Negative (Negative) Urine Urobilinogen <2.0 (<2.0) mg/dL Ur Leukocyte Esterase Trace H (Negative) Urine WBC 2 (0-5) /hpf Ur Squamous Epith Cells 3 (0-4) /hpf Amorphous Sediment Rare H (None) /hpf Urine HCG, Qual Not Detected (Not Detectd) Salicylates mg/dL Acetaminophen ug/mL SHYANN Screen (NEGATIVE) Coronavirus (PCR) (Not Detectd) 10/22/20 10/22/20 10/22/20 Range/Units 08:18 08:18 11:22 WBC (3.8-10.6) k/uL RBC (3.80-5.40) m/uL Hgb (11.4-16.0) gm/dL Hct (34.0-46.0) % MCV (80.0-100.0) fL MCH (25.0-35.0) pg MCHC (31.0-37.0) g/dL RDW (11.5-15.5) % Plt Count (150-450) k/uL MPV Neutrophils % % Lymphocytes % % Monocytes % % Eosinophils % % Basophils % % Neutrophils # (1.3-7.7) k/uL Lymphocytes # (1.0-4.8) k/uL Monocytes # (0-1.0) k/uL Eosinophils # (0-0.7) k/uL Basophils # (0-0.2) k/uL ESR (0-20) mm/hr PT (9.0-12.0) sec INR (<1.2) APTT (22.0-30.0) sec Sodium (137-145) mmol/L Potassium 4.1 (3.5-5.1) mmol/L Chloride (98-107) mmol/L Carbon Dioxide (22-30) mmol/L Anion Gap mmol/L BUN (7-17) mg/dL Creatinine (0.52-1.04) mg/dL Est GFR (CKD-EPI)AfAm (>60 ml/min/1.73 sqM) Est GFR (CKD-EPI)NonAf (>60 ml/min/1.73 sqM) Glucose (74-99) mg/dL Calcium (8.4-10.2) mg/dL Phosphorus (2.5-4.5) mg/dL Magnesium (1.6-2.3) mg/dL Total Bilirubin (0.2-1.3) mg/dL AST (14-36) U/L ALT (4-34) U/L Alkaline Phosphatase (38-126) U/L Creatine Kinase (30-135) U/L CK-MB (CK-2) (0.0-2.4) ng/mL Troponin I <0.012 (0.000-0.034) ng/mL C-Reactive Protein (<10.0) mg/L NT-Pro-B Natriuret Pep pg/mL Total Protein (6.3-8.2) g/dL Albumin (3.5-5.0) g/dL Triglycerides 48 (<150) mg/dL Cholesterol 151 (<200) mg/dL LDL Cholesterol, Calc 95 (0-99) mg/dL HDL Cholesterol 46 (40-60) mg/dL Urine Color Urine Appearance (Clear) Urine pH (5.0-8.0) Ur Specific Riparius (1.001-1.035) Urine Protein (Negative) Urine Glucose (UA) (Negative) Urine Ketones (Negative) Urine Blood (Negative) Urine Nitrite (Negative) Urine Bilirubin (Negative) Urine Urobilinogen (<2.0) mg/dL Ur Leukocyte Esterase (Negative) Urine WBC (0-5) /hpf Ur Squamous Epith Cells (0-4) /hpf Amorphous Sediment (None) /hpf Urine HCG, Qual (Not Detectd) Salicylates mg/dL Acetaminophen ug/mL SHYANN Screen (NEGATIVE) Coronavirus (PCR) (Not Detectd) 10/22/20 10/22/20 10/24/20 Range/Units 11:22 12:07 14:19 WBC 7.2 (3.8-10.6) k/uL RBC 4.77 (3.80-5.40) m/uL Hgb 14.0 (11.4-16.0) gm/dL Hct 41.7 (34.0-46.0) % MCV 87.3 (80.0-100.0) fL MCH 29.4 (25.0-35.0) pg MCHC 33.7 (31.0-37.0) g/dL RDW 12.7 (11.5-15.5) % Plt Count 230 (150-450) k/uL MPV 7.7 Neutrophils % 76 % Lymphocytes % 17 % Monocytes % 4 % Eosinophils % 1 % Basophils % 1 % Neutrophils # 5.5 (1.3-7.7) k/uL Lymphocytes # 1.3 (1.0-4.8) k/uL Monocytes # 0.3 (0-1.0) k/uL Eosinophils # 0.1 (0-0.7) k/uL Basophils # 0.0 (0-0.2) k/uL ESR 2 (0-20) mm/hr PT (9.0-12.0) sec INR (<1.2) APTT (22.0-30.0) sec Sodium (137-145) mmol/L Potassium (3.5-5.1) mmol/L Chloride (98-107) mmol/L Carbon Dioxide (22-30) mmol/L Anion Gap mmol/L BUN (7-17) mg/dL Creatinine (0.52-1.04) mg/dL Est GFR (CKD-EPI)AfAm (>60 ml/min/1.73 sqM) Est GFR (CKD-EPI)NonAf (>60 ml/min/1.73 sqM) Glucose (74-99) mg/dL Calcium (8.4-10.2) mg/dL Phosphorus (2.5-4.5) mg/dL Magnesium (1.6-2.3) mg/dL Total Bilirubin (0.2-1.3) mg/dL AST (14-36) U/L ALT (4-34) U/L Alkaline Phosphatase (38-126) U/L Creatine Kinase (30-135) U/L CK-MB (CK-2) (0.0-2.4) ng/mL Troponin I (0.000-0.034) ng/mL C-Reactive Protein <5.0 (<10.0) mg/L NT-Pro-B Natriuret Pep pg/mL Total Protein (6.3-8.2) g/dL Albumin (3.5-5.0) g/dL Triglycerides (<150) mg/dL Cholesterol (<200) mg/dL LDL Cholesterol, Calc (0-99) mg/dL HDL Cholesterol (40-60) mg/dL Urine Color Urine Appearance (Clear) Urine pH (5.0-8.0) Ur Specific Riparius (1.001-1.035) Urine Protein (Negative) Urine Glucose (UA) (Negative) Urine Ketones (Negative) Urine Blood (Negative) Urine Nitrite (Negative) Urine Bilirubin (Negative) Urine Urobilinogen (<2.0) mg/dL Ur Leukocyte Esterase (Negative) Urine WBC (0-5) /hpf Ur Squamous Epith Cells (0-4) /hpf Amorphous Sediment (None) /hpf Urine HCG, Qual (Not Detectd) Salicylates mg/dL Acetaminophen ug/mL SHYANN Screen (NEGATIVE) Coronavirus (PCR) (Not Detectd) 10/24/20 Range/Units 14:19 WBC (3.8-10.6) k/uL RBC (3.80-5.40) m/uL Hgb (11.4-16.0) gm/dL Hct (34.0-46.0) % MCV (80.0-100.0) fL MCH (25.0-35.0) pg MCHC (31.0-37.0) g/dL RDW (11.5-15.5) % Plt Count (150-450) k/uL MPV Neutrophils % % Lymphocytes % % Monocytes % % Eosinophils % % Basophils % % Neutrophils # (1.3-7.7) k/uL Lymphocytes # (1.0-4.8) k/uL Monocytes # (0-1.0) k/uL Eosinophils # (0-0.7) k/uL Basophils # (0-0.2) k/uL ESR (0-20) mm/hr PT 11.5 (9.0-12.0) sec INR 1.1 (<1.2) APTT 24.5 (22.0-30.0) sec Sodium (137-145) mmol/L Potassium (3.5-5.1) mmol/L Chloride (98-107) mmol/L Carbon Dioxide (22-30) mmol/L Anion Gap mmol/L BUN (7-17) mg/dL Creatinine (0.52-1.04) mg/dL Est GFR (CKD-EPI)AfAm (>60 ml/min/1.73 sqM) Est GFR (CKD-EPI)NonAf (>60 ml/min/1.73 sqM) Glucose (74-99) mg/dL Calcium (8.4-10.2) mg/dL Phosphorus (2.5-4.5) mg/dL Magnesium (1.6-2.3) mg/dL Total Bilirubin (0.2-1.3) mg/dL AST (14-36) U/L ALT (4-34) U/L Alkaline Phosphatase (38-126) U/L Creatine Kinase (30-135) U/L CK-MB (CK-2) (0.0-2.4) ng/mL Troponin I (0.000-0.034) ng/mL C-Reactive Protein (<10.0) mg/L NT-Pro-B Natriuret Pep pg/mL Total Protein (6.3-8.2) g/dL Albumin (3.5-5.0) g/dL Triglycerides (<150) mg/dL Cholesterol (<200) mg/dL LDL Cholesterol, Calc (0-99) mg/dL HDL Cholesterol (40-60) mg/dL Urine Color Urine Appearance (Clear) Urine pH (5.0-8.0) Ur Specific Riparius (1.001-1.035) Urine Protein (Negative) Urine Glucose (UA) (Negative) Urine Ketones (Negative) Urine Blood (Negative) Urine Nitrite (Negative) Urine Bilirubin (Negative) Urine Urobilinogen (<2.0) mg/dL Ur Leukocyte Esterase (Negative) Urine WBC (0-5) /hpf Ur Squamous Epith Cells (0-4) /hpf Amorphous Sediment (None) /hpf Urine HCG, Qual (Not Detectd) Salicylates mg/dL Acetaminophen ug/mL SHYANN Screen (NEGATIVE) Coronavirus (PCR) (Not Detectd) Disposition Clinical Impression: Weakness, Near syncope, Arrhythmia Disposition: ADMITTED IP TO THIS HOSP Condition: Fair Is patient prescribed a controlled substance at d/c from ED?: No
[2020-10-22 03:28] LABS: Basophils % (A) 0 %; Eosinophils # (A) 0.1 k/uL (0-0.7); Eosinophils % (A) 1 %; HCT 43.3 % (34.0-46.0); HGB 14.5 gm/dL (11.4-16.0); Lymphocytes # (A) 1.5 k/uL (1.0-4.8); Lymphocytes % (A) 14 %; MCHC 33.6 g/dL (31.0-37.0); MCV 86.2 fL (80.0-100.0); Monocytes # (A) 0.7 k/uL (0-1.0); Monocytes % (A) 6 %; Neutrophils # (A) 8.2 k/uL (1.3-7.7); Neutrophils % (A) 78 %; Platelet Count 217 k/uL (150-450); RBC 5.02 m/uL (3.80-5.40); RDW 12.9 % (11.5-15.5); WBC 10.6 k/uL (3.8-10.6)
[2020-10-22 03:49] LABS: ALT 13 U/L (4-34); AST 21 U/L (14-36); Acetaminophen <10.0 ug/mL; African American GFR (CKD) >90 (>60 ml/min/1.73 sqM); Albumin 4.6 g/dL (3.5-5.0); Alkaline Phosphatase 55 U/L (38-126); Anion Gap 12 mmol/L; Blood Urea Nitrogen 5 mg/dL (7-17); Calcium 9.6 mg/dL (8.4-10.2); Carbon Dioxide 26 mmol/L (22-30); Chloride 101 mmol/L (98-107); Creatine Kinase 73 U/L (30-135); Glucose 95 mg/dL (74-99); Magnesium 1.8 mg/dL (1.6-2.3); Non-African American GFR(CKD) >90 (>60 ml/min/1.73 sqM); Phosphorus 3.9 mg/dL (2.5-4.5); Potassium 3.4 mmol/L (3.5-5.1); Salicylate <1.0 mg/dL; Sodium 139 mmol/L (137-145); Total Bilirubin 0.7 mg/dL (0.2-1.3); Total Protein 7.5 g/dL (6.3-8.2)
[2020-10-22 03:59] LABS: Creatine Kinase MB <0.2 ng/mL (0.0-2.4); Troponin I <0.012 ng/mL (0.000-0.034)
[2020-10-22] MEDS ORDERED: POTASSIUM BICARBONATE/CIT AC 20 MEQ TABLET.EFF PO ONE (04:45)
[2020-10-22 05:35] LABS: Amorphous Sediment,Urine Rare /hpf; Appearance,Urine Cloudy (Clear); Bilirubin,Urine Negative (Negative); Blood,Urine Negative (Negative); Color,Urine Colorless; Glucose,Urine (UA) Negative (Negative); Ketones,Urine Negative (Negative); Leukocyte Esterase,Urine Trace (Negative); Nitrite,Urine Negative (Negative); PH, Urine 6.5 (5.0-8.0); Protein,Urine Negative (Negative); Specific Gravity,Urine 1.002 (1.001-1.035); Squamous Epithelial Cell,Urine 3 /hpf (0-4); Urobilinogen,Urine <2.0 mg/dL (<2.0); WBC,Urine 2 /hpf (0-5)
[2020-10-22] MEDS ORDERED: SODIUM CHLORIDE 0.9% 1,000 ML IV STA (09:02)
[2020-10-22 09:15] LABS: Cholesterol 151 mg/dL (<200); HDL Cholesterol 46 mg/dL (40-60); LDL Cholesterol,Calculated 95 mg/dL (0-99); Triglycerides 48 mg/dL (<150)
--- NOTE | 2020-10-22 10:21 | P.CRDCN ---
History of Present Illness History of present illness: HISTORY OF PRESENTING ILLNESS This is a pleasant 25-year-old female past medical history significant for hypothyroidism, anxiety and depression. She does not follow in the office w ith a eyewear manufacturing tech for any reason. We have been asked to see in consultation for cardiomyopathy. She is seen and examined resting comfortably laying flat in bed in no acute distress. She states for the past 2 weeks she has not been feeling well. She has had persistent nausea, weakness and poor appetite. She also has felt intermittent episodes of palpitations. She states it happened last week when she was sitting down doing nothing in particular when she had an acute onset of a flushed warm sensation in her chest, heart pounding hard and fast with feeling light headed like she would pass out. This sensation persisted for approximately 30 minutes. Again last night she was woken up from sleep at 0300 with the same sensation. She has been following with her PCP and underwent an echo in her office. According to the patient she was told she had fluid around her heart and was started on lasix last week. She also states that this seems to have all started when she was restarted on her synthroid, anxiety medication and anti-depressants. There was a period of about 1-month when she stopped taking these pills on her own. She has since stopped taking the anxiety and depression medications. DIAGNOSTICS EKG reveals sinus mechanism, right bundle branch block, rightward axis and T wave abnormalities anteriorly. Telemetry tracings indicate sinus tachycardia. Laboratory reviewed, WBC 10.6, hgb 14.5, plt 217, sodium 139, potassium 3.4, creatinine 0.54, magnesium 1.8, cardiac enzymes negative x2 and NTproBNP 30. TSH from 10/07/20 7.15. Current cardiac medications include lasix 20 mg daily and potassium 10 MEQ daily. REVIEW OF SYSTEMS At the time of my exam: CONSTITUTIONAL: Denies fever or chills. CARDIOVASCULAR: Denies chest pain, shortness of breath, orthopnea, PND or palpitations. RESPIRATORY: Denies cough. GASTROINTESTINAL: Denies abdominal pain, diarrhea, constipation, nausea or vomiting. MUSCULOSKELETAL: Denies myalgias. NEUROLOGIC: Denies numbness, tingling, headacbe or weakness. ENDOCRINE: Denies fatigue, weight change, polydipsia or polyurina. GENITOURINARY: Denies burning, hematuria or urgency with micturation. HEMATOLOGIC: Denies history of anemia or bleeding. PHYSICAL EXAMINATION Blood pressure 103/65 heart rate 95 afebrile and maintaining oxygen saturation on room air. CONSTITUTIONAL: No apparent distress. HEENT: Head is normocephalic. Pupils are equal, round. Sclerae anicteric. Mucous membranes of the mouth are moist. No JVD. No carotid bruit. CHEST EXAMINATION: Lungs are clear to auscultation. No chest wall tenderness is noted on palpation or with deep breathing. HEART EXAMINATION: Regular rate and rhythm. S1, S2 heard. No murmurs, gallops or rub. ABDOMEN: Soft, nontender. Positive bowel sounds. EXTREMITIES: 2+ peripheral pulses, no lower extremity edema and no calf tenderness. NEUROLOGIC EXAMINATION: Patient is awake, alert and oriented x3. ASSESSMENT Generalized weakness Palpitations and dizziness Possible pericardial effusion Hypothyroidism Anxiety Depression PLAN Some of her symptoms appear to be related to dehydration from recent use of diuretics. Discontinue lasix. Initiate sodium chloride at 100cc/hr. Check for orthostatic changes. Recommend repeat 2D echocardiogram and doppler study to assess cardiac structure and function. Check CRP and ESR. Obtain CT of the chest/abdomen/pelvis. Obtain report from previous echo done at her PCP's office. Ongoing telemetry monitoring. Further recommendations to follow based on clinical course. Thank you kindly for this consultation. Nurse Practitioner note has been reviewed, I agree with a documented findings and plan of care. Patient was seen and examined. Past Medical History Past Medical History: Thyroid Disorder History of Any Multi-Drug Resistant Organisms: None Reported Past Surgical History: No Surgical Hx Reported Past Anesthesia/Blood Transfusion Reactions: No Reported Reaction Past Psychological History: Anxiety, Depression Smoking Status: Never smoker Past Alcohol Use History: None Reported Past Drug Use History: None Reported - Past Family History Mother Family Medical History: No Reported History Medications and Allergies Home Medications Medication Instructions Recorded Confirmed Type Levothyroxine Sodium 25 mcg PO DAILY 02/21/18 10/22/20 History Ondansetron Odt [Zofran Odt] 4 mg PO Q8HR PRN #10 tab 10/07/20 10/22/20 Rx Furosemide [Lasix] 20 mg PO DAILY 10/22/20 10/22/20 History Potassium Chloride ER [K-Dur 10] 10 meq PO DAILY 10/22/20 10/22/20 History Allergies Allergy/AdvReac Type Severity Reaction Status Date / Time escitalopram [From Lexapro] AdvReac shaking Verified 10/22/20 06:46 Physical Exam Vitals: Vital Signs Temp Pulse Resp BP Pulse Ox 10/22/20 01:21 98.1 F 95 20 103/65 99 Intake and Output 10/21/20 10/22/20 10/22/20 22:59 06:59 14:59 Other: Weight 52.163 kg Results 10/22/20 02:33 10/22/20 11:22 Cardiac Enzymes 10/22/20 10/22/20 10/22/20 Range/Units 02:33 02:33 05:28 AST 21 (14-36) U/L CK-MB (CK-2) <0.2 (0.0-2.4) ng/mL Troponin I <0.012 <0.012 (0.000-0.034) ng/mL CBC 10/22/20 Range/Units 02:33 WBC 10.6 (3.8-10.6) k/uL RBC 5.02 (3.80-5.40) m/uL Hgb 14.5 (11.4-16.0) gm/dL Hct 43.3 (34.0-46.0) % Plt Count 217 (150-450) k/uL Comprehensive Metabolic Panel 10/22/20 Range/Units 02:33 Sodium 139 (137-145) mmol/L Potassium 3.4 L (3.5-5.1) mmol/L Chloride 101 (98-107) mmol/L Carbon Dioxide 26 (22-30) mmol/L BUN 5 L (7-17) mg/dL Creatinine 0.54 (0.52-1.04) mg/dL Glucose 95 (74-99) mg/dL Calcium 9.6 (8.4-10.2) mg/dL AST 21 (14-36) U/L ALT 13 (4-34) U/L Alkaline Phosphatase 55 (38-126) U/L Total Protein 7.5 (6.3-8.2) g/dL Albumin 4.6 (3.5-5.0) g/dL Current Medications Generic Name Dose Route Start Last Admin Trade Name Freq PRN Reason Stop Dose Admin Aspirin 325 mg 10/23/20 09:00 Aspirin 325 Mg Tab PO DAILY JILLIAN Nitroglycerin 0.4 mg 10/22/20 02:20 Nitroglycerin Sl Tabs 0.4 Mg Tab SUBLINGUAL Q5M PRN Chest Pain Intake and Output 10/21/20 10/22/20 10/22/20 22:59 06:59 14:59 Other: Weight 52.163 kg 10/22/20 02:33 10/22/20 02:33
[2020-10-22] MEDS ORDERED: ONDANSETRON 4 MG/2 ML VIAL ONE (10:56)
[2020-10-22] MEDS ORDERED: ONDANSETRON 4 MG/2 ML VIAL IVP PRN (10:58)
[2020-10-22] MEDS ORDERED: PANTOPRAZOLE 40 MG/10 ML VIAL IVP SCH (11:00)
--- NOTE | 2020-10-22 11:30 | ECHOF ---
Referral Reason:cardiomyothy MEASUREMENTS -------- HEIGHT: 162.6 cm WEIGHT: 52.2 kg BP: 103/65 RVIDd: 2.0 cm (< 3.3) IVSd: 0.6 cm (0.6 - 1.1) LVIDd: 3.7 cm (3.9 - 5.3) LVPWd: 0.7 cm (0.6 - 1.1) IVSs: 1.2 cm LVIDs: 2.5 cm LVPWs: 1.2 cm LA Diam: 2.0 cm (2.7 - 3.8) Ao Diam: 2.3 cm (2.0 - 3.7) AV Cusp: 1.9 cm (1.5 - 2.6) MV EXCURSION: 17.787 mm (> 18.000) MV EF SLOPE: 98 mm/s (70 - 150) EPSS: 0.4 cm MV E Jeff: 0.57 m/s MV DecT: 190 ms MV A Jeff: 0.40 m/s MV E/A Ratio: 1.42 FINDINGS -------- Sinus rhythm. This was a technically adequate study. The left ventricular size is normal. Left ventricular wall thickness is normal. Overall left vent ricular systolic function is normal with, an EF between 60 - 65 %. The right ventricle is normal in size. The left atrial size is normal. The right atrium is normal in size. Interatrial and interventricular septum intact. The aortic valve is trileaflet, and appears structurally normal. No aortic stenosis or regurgitation. The mitral valve is normal. The tricuspid valve appears structurally normal. Trace/mild (physiologic) pulmonic regurgitation. The aortic root size is normal. Normal inferior vena cava with normal inspiratory collapse consistent with estimated right atrial pre ssure of 5 mmHg. There is a moderate pericardial effusion is located near the right ventricle. There is no evidence of cardiac tamponade. CONCLUSIONS -------- 1. The left ventricular size is normal. 2. Left ventricular wall thickness is normal. 3. Overall left ventricular systolic function is normal with, an EF between 60 - 65 %. 4. The aortic valve is trileaflet, and appears structurally normal. No aortic stenosis or regurgitati on. 5. Trace/mild (physiologic) pulmonic regurgitation. 6. There is a moderate pericardial effusion is located near the right ventricle. 7. There is no evidence of cardiac tamponade. ADJUSTMENT SUPERVISOR: Shivani Blanco RDCS
[2020-10-22] MEDS ORDERED: ACETAMINOPHEN TAB 325 MG TAB ONE (11:48)
[2020-10-22] MEDS: LEVOTHYROXINE 25 MCG TAB PO SCH (15:06)
--- NOTE | 2020-10-22 15:13 | CT ---
EXAMINATION TYPE: CT ChestAbdPelvis w con DATE OF EXAM: 10/22/2020 COMPARISON: None. HISTORY: Pericardial effusion, night sweats, r/o malignancy CT DLP: 1010 mGycm. Automated Exposure Control for Dose Reduction was Utilized. CONTRAST: CT scan of the thorax, abdomen and pelvis is performed without oral but with IV Contrast, patient inj ected with 100 mL of Isovue 300. FINDINGS: LUNGS: Slightly elevated left hemidiaphragm. The lungs are grossly clear, there is no concerning pare nchymal mass or nodule identified. There is no pleural effusion or pneumothorax seen. The tracheob ronchial tree is patent. MEDIASTINUM: There are no greater than 1 cm hilar or mediastinal lymph nodes. Trace pericardial effus ion is seen anterior inferior aspect. No cardiomegaly. OTHER: Heterogeneously dense fibroglandular tissue in both breasts correlates with patient's age. No concerning axillary adenopathy.. LIVER/GB: No significant abnormality is appreciated. PANCREAS: No significant abnormality is seen. SPLEEN: No significant abnormality is seen. ADRENALS: No significant abnormality is seen. KIDNEYS: No significant abnormality is seen. BOWEL: Suboptimal evaluation bowel without enteric contrast and patient having little intra-abdominal fat. No suspicious small or large bowel dilatation is seen. GENITAL ORGANS: Slightly retroflexed uterus. Small amount of free fluid in pelvic cul-de-sac axial im age 89 is nonspecific. Ovaries normal in size. Left ovary is 1.7 cm low dense lesion image 106 consi stent with prominent follicle or simple small ovarian cyst. LYMPH NODES: No greater than 1cm abdominal or pelvic lymph nodes are appreciated. OSSEOUS STRUCTURES: Pectus excavatum deformity. Slight scoliotic curvature of thoracolumbar spine. OTHER: No significant additional abnormality is seen. IMPRESSION: No concerning mass or adenopathy.
[2020-10-22] MEDS ORDERED: METOCLOPRAMIDE 5 MG/ML 2 ML VIAL IVP PRN (19:18)
[2020-10-23] MEDS: LEVOTHYROXINE 25 MCG TAB PO SCH (07:58)
[2020-10-23] MEDS: PANTOPRAZOLE 40 MG TABLET PO SCH (08:44)
[2020-10-23] MEDS ORDERED: ASPIRIN 325 MG TAB PO SCH (09:00)
[2020-10-23] MEDS ORDERED: REGADENOSON 0.4 MG/5 ML SYRINGE IV PRN (10:59)
[2020-10-23] MEDS ORDERED: CAFFEINE CITRATE 60 MG/3 ML VIAL IV PRN (10:59)
[2020-10-23] MEDS ORDERED: AMINOPHYLLINE 500 MG/20 ML VIAL IV PRN (10:59)
[2020-10-23] MEDS ORDERED: SODIUM CHLORIDE 0.9% 1,000 ML IV STA (12:07)
--- NOTE | 2020-10-23 12:12 | P.PN ---
Subjective This is a pleasant 25-year-old female past medical history significant for hypothyroidism, anxiety and depression. She does not follow in the office with a construction job cost estimator for any reason. We have been asked to see in consultation for cardiomyopathy. She is seen and examined resting comfortably laying flat in bed in no acute distress. She states for the past 2 weeks she has not been feeling well. She has had persistent nausea, weakness and poor appetite. She also has felt intermittent episodes of palpitations. She states it happened last week when she was sitting down doing nothing in particular when she had an acute onset of a flushed warm sensation in her chest, heart pounding hard and fast with feeling light headed like she would pass out. This sensation persisted for approximately 30 minutes. Again last night she was woken up from sleep at 0300 with the same sensation. She has been following with her PCP and underwent an echo in her office. According to the patient she was told she had fluid around her heart and was started on lasix last week. She also states that this seems to have all started when she was restarted on her synthroid, anxiety medication and anti-depressants. There was a period of about 1-month when she stopped taking these pills on her own. She has since stopped taking the anxiety and depression medications. EKG reveals sinus mechanism, right bundle branch block, rightward axis and T wave abnormalities anteriorly. Laboratory reviewed, WBC 10.6, hgb 14.5, plt 217, sodium 139, potassium 3.4, creatinine 0.54, magnesium 1.8, cardiac enzymes negative x2 and NTproBNP 30, covid-19 negative, TSH from 10/07/20 7.15. 10/23/20: Patient seen and examined at bedside. States that she had a horrible night last night. She continues to have a feeling of palpitation/pounding in the chest. She states that this gets worse with walking to the bathroom. She also feels very fatigued and short of breath especially when walking around her room. She states that she just continues to feel "awful". Telemetry tracings reviewed patient's sinus tachycardia. patient's heart rate 90-120. While resting her HR is 110s. Per nursing Overnight when patient was walking to the bathroom her heart rate increased to 130. Laboratory data reviewed, patient's troponin negative 3, K 4.1, CRP <5.0, ESR 2. Orthostatic vital signs were negative. 2D echo: EF 60-65%, moderate pericardial effusion is located near the right ventricle. No evidence of cardiac tamponade. CT C/A/P: no concerning mass or adenopathy. No acute abnormalities seen. PHYSICAL EXAMINATION Blood pressure 102/62 heart rate 90-100s afebrile and maintaining oxygen saturation on room air. CONSTITUTIONAL: Appears slighly anxious HEENT: Head is normocephalic. Pupils are equal, round. Sclerae anicteric. Mucous membranes of the mouth are moist. No JVD. No carotid bruit. CHEST EXAMINATION: Lungs are clear to auscultation. No chest wall tenderness is noted on palpation or with deep breathing. HEART EXAMINATION: Tachycardic rate and rhythm. S1, S2 heard. No murmurs, gallops or rub. ABDOMEN: Soft, nontender. Positive bowel sounds. EXTREMITIES: 2+ peripheral pulses, no lower extremity edema and no calf tenderness. NEUROLOGIC EXAMINATION: Patient is awake, alert and oriented x3. ASSESSMENT Generalized weakness Palpitations and dizziness Pericardial effusion Hypothyroidism Anxiety Depression PLAN -Some of her symptoms appear to be related to dehydration from recent use of diuretics. Will continue IV fluids. -Start colchicine 0.6mg daily and Ibuprofen 600mg TID -Plan for Lexiscan stress test tomorrow, NPO at midnight. -Ongoing telemetry monitoring. -Further recommendations to follow based on clinical course. Nurse Practitioner note has been reviewed, I agree with a documented findings and plan of care. Patient was seen and examined. Objective - Vital Signs Vital signs: Vital Signs Temp 98.7 F 10/23/20 07:00 Pulse 99 10/23/20 07:00 Resp 16 10/23/20 07:00 BP 102/64 10/23/20 07:00 Pulse Ox 98 10/23/20 07:00 Intake & Output 10/22/20 10/23/20 10/23/20 18:59 06:59 18:59 Intake Total 90 Output Total 300 Balance -210 Weight 52.163 kg Intake: Oral 90 Output: Urine 300 Other: Voiding Method Bedside Commode Bedside Commode Bedside Commode # Voids 3 1 - Labs CBC & Chem 7: 10/22/20 02:33 10/22/20 11:22
[2020-10-23] MEDS: IBUPROFEN 600 MG TAB PO SCH ×3 (12:39→19:44)
[2020-10-23] MEDS: COLCHICINE 0.6 MG EACH PO SCH (12:40)
[2020-10-23 13:20] VITALS: BMI 19.7
[2020-10-23] MEDS ORDERED: PROMETHAZINE 25 MG TAB PO PRN (15:25)
--- NOTE | 2020-10-23 15:56 | P.PN ---
Subjective Progress Note Date: 10/23/20 This is a 25-year-old female admitted with generalized weakness, nausea of 2 weeks, palpitations or lightheadedness and dizziness. Denies family history of CAD, ablation or arrhythmias. Caffeine intake minimal, usually consumes 1 cup of coffee in the morning which she has not had an over 2 weeks. Symptoms persist, sinus tachycardia at rest with heart rates up into the 110s. Echo reporting moderate paracardial effusion near the right ventricle with a normal LV function. ESR 2, CRP less than 5. Complains of nausea, unable to tolerate Reglan. Teary-eyed as she has 2 children at home and currently feels unable to do minimal activity, reports symptoms worsened with exertion including shortness of breath and fatigue, while attending to ADLs. Telemetry sinus tachycardia, heart rates ranging 90 to 120s. Negative for orthostatic hypotension. Troponin is negative 3. T-max 99, normal WBC. CT of abdomen and pelvis reported no concerning masses or adenopathy. TSH from 10/07/20 7.150. Objective - Vital Signs Vital signs: Vital Signs Temp 99 F 10/23/20 14:38 Pulse 16 L 10/23/20 14:38 Resp 16 10/23/20 14:38 BP 108/65 10/23/20 14:38 Pulse Ox 98 10/23/20 14:38 Intake & Output 10/22/20 10/23/20 10/23/20 18:59 06:59 18:59 Intake Total 90 Output Total 300 Balance -210 Weight 52.163 kg 52.163 kg Intake: Oral 90 Output: Urine 300 Other: Voiding Method Bedside Commode Bedside Commode Bedside Commode # Voids 3 1 1 - Exam PHYSICAL EXAM: VITAL SIGNS: [As above] GENERAL: Sitting up in bed, no acute distress, teary-eyed HEENT: Conjunctivae normal. eyes normal. NECK: No JVD. No thyroid enlargement. CARDIOVASCULAR: S1, S2 regular.. No murmur RESPIRATION: Breath sounds clear to auscultation ABDOMEN: Soft, nontender . No guarding. no masses palpable. No ascites, No hepatosplenomegaly.Bowel sounds heard. LEGS: No edema. no swelling PSYCHIATRY: Alert and oriented X3, mood and affect normal. NERVOUS SYSTEM: Cranial N 2-12 grossly normal. Moves all 4 limbs. No focal deficits. Strength and sensation grossly intact. Skin: no lesions, no rash. No spotting/dots on palms or soles of feet. - Labs CBC & Chem 7: 10/22/20 02:33 10/22/20 11:22 Assessment and Plan Assessment: Generalized weakness, multifactorial secondary to dehydration related to diuretics which have been discontinued, palpitations, etiology unclear, possible pericarditis or viral endocarditis. CT does not report findings of malignancy. Lack of risk factors, patient does not have family history of CAD, A. fib, ablation. Moderate pericardial effusion near Right ventricle normal LV function Hypothyroidism Anxiety Depression Plan: Continue on current medication regime ,monitoring and symptomatic treatment. Reports adverse effects to Reglan, discontinued. Promethazine added in addition to Zofran. Scheduled for Lexiscan stress test in a.m. Cultures seen and NSAIDs initiated. Maintain continuous telemetry monitoring. The impression and plan of care has been dictated as directed. : I performed a history and examination of this patient, discussed the same with the dictator. I agree with the dictator's note ,documented as a scribe. Any additional findings or plans will be noted.
--- NOTE | 2020-10-23 22:15 | P.HPIM ---
History of Present Illness H&P Date: 10/22/20 Chief Complaint: weakness, fatigue Cheyenne Mann is a 25-year-old female admitted with generalized weakness, nausea of 2 weeks, palpitations or lightheadedness and dizziness. Denies family history of CAD, ablation or arrhythmias. Caffeine intake minimal, usually consumes 1 cup of coffee in the morning which she has not had an over 2 weeks. She states she has experienced weakness and palpitations for a few weeks and recently saw her PCP and was found to have a pericardial effusion. She does complain of worsened energy more recently. Telemetry sinus tachycardia, heart rates ranging 90 to 120s. Negative for orthostatic hypotension. Troponin is negative 3. T-max 99, normal WBC. CT of abdomen and pelvis reported no concerning masses or adenopathy. TSH from 10/07/20 7.150. Review of Systems All systems: negative Constitutional: Reports sweats, Reports weakness, Denies chills, Denies fever Eyes: denies blurred vision, denies pain Ears, nose, mouth and throat: Denies headache, Denies sore throat Cardiovascular: Reports palpitations, Reports rapid heart beat, Denies chest pain, Denies shortness of breath Respiratory: Denies cough Gastrointestinal: Denies abdominal pain, Denies diarrhea, Denies nausea, Denies vomiting Genitourinary: Denies dysuria, Denies hematuria Musculoskeletal: Denies myalgias Integumentary: Denies pruritus, Denies rash Neurological: Denies numbness, Denies weakness Psychiatric: Denies anxiety, Denies depression Endocrine: Denies fatigue, Denies weight change Past Medical History Past Medical History: Thyroid Disorder Additional Past Medical History / Comment(s): hpothyroid. History of Any Multi-Drug Resistant Organisms: None Reported Past Surgical History: No Surgical Hx Reported Past Anesthesia/Blood Transfusion Reactions: No Reported Reaction Past Psychological History: Anxiety, Depression Smoking Status: Never smoker Past Alcohol Use History: None Reported Past Drug Use History: None Reported - Past Family History Mother Family Medical History: No Reported History Medications and Allergies Home Medications Medication Instructions Recorded Confirmed Type Levothyroxine Sodium 25 mcg PO DAILY 02/21/18 10/22/20 History Ondansetron Odt [Zofran Odt] 4 mg PO Q8HR PRN #10 tab 10/07/20 10/22/20 Rx Furosemide [Lasix] 20 mg PO DAILY 10/22/20 10/22/20 History Potassium Chloride ER [K-Dur 10] 10 meq PO DAILY 10/22/20 10/22/20 History Allergies Allergy/AdvReac Type Severity Reaction Status Date / Time escitalopram [From Lexapro] AdvReac shaking Verified 10/22/20 06:46 Physical Exam Vitals: Vital Signs Temp Pulse Pulse Resp BP Pulse Ox 10/23/20 20:00 98.2 F 81 18 118/77 100 10/23/20 14:38 99 F 16 L 91 16 108/65 98 10/23/20 07:00 98.7 F 99 16 102/64 98 10/23/20 02:45 98.1 F 95 16 104/63 97 10/23/20 02:00 86 72 16 Intake and Output 10/23/20 10/23/20 10/23/20 06:59 14:59 22:59 Other: Voiding Method Bedside Commode Bedside Commode # Voids 1 1 Weight 52.163 kg General: well nourished, well developed, NAD. Vitals reviewed Eyes: PERRL, EOMI, conjunctiva normal HENT: normocephalic, mucus membranes moist Neck: supple, no JVD Lungs: normal respiratory effort, no wheezes or rales CV: Regular rate and rhythm, no murmur. Peripheral pulses 2+ Abdomen: soft, nondistended, no organomegaly Lymph: no cervical or axillary LAD Skin: warm and dry. Neuro: A&Ox3, normal mood and affect Results CBC & Chem 7: 10/22/20 02:33 10/22/20 11:22 Thrombosis Risk Factor Assmnt - Choose All That Apply Any of the Below Risk Factors Present?: No Other Risk Factors: No Other congenital or acquired thrombophilia - If yes, enter type in comment: No Thrombosis Risk Factor Assessment Level: Very Low Risk Assessment and Plan (1) Pericardial effusion Current Visit: Yes Status: Acute Code(s): I31.3 - PERICARDIAL EFFUSION (NONINFLAMMATORY) SNOMED Code(s): 583350939 (2) Near syncope Current Visit: Yes Status: Acute Code(s): R55 - SYNCOPE AND COLLAPSE SNOMED Code(s): 817542524 (3) Weakness Current Visit: Yes Status: Acute Code(s): R53.1 - WEAKNESS SNOMED Code(s): 73196602 Plan: 1. Palpitations, weakness, pericardial effusion. Suspect viral pericarditis, Cardiology consult for further evaluation. CT chest/abd/pelvis to rule out malignancy 2. Dehydration. Stop lasix
[2020-10-24] MEDS: LEVOTHYROXINE 25 MCG TAB PO SCH (05:17)
[2020-10-24] MEDS: PANTOPRAZOLE 40 MG TABLET PO SCH ×2 (10:44→18:26)
[2020-10-24] MEDS: IBUPROFEN 600 MG TAB PO SCH ×3 (10:44→21:23)
[2020-10-24] MEDS: COLCHICINE 0.6 MG EACH PO SCH (10:44)
--- NOTE | 2020-10-24 12:21 | NM ---
EXAMINATION TYPE: NM stress lexiscan cardiolite DATE OF EXAM: 10/24/2020 COMPARISON: CT 2 days ago. HISTORY: Difficulty in breathing and palpitations. TECHNIQUE: After the intravenous administration of 9.5 mCi Tc 99m Sestamibi - Cardiolite resting SPE CT images acquired 45 minutes post injection. The patient received 0.4mg Lexiscan, 24.0 mCi Tc 99m Sestamibi - Stress images obtained [address] injection FINDINGS: Review of stress and rest SPECT images demonstrates some artifact related to right ventricle uptake. No convincing evidence for reversible ischemia noted. Gated analysis shows normal wall motion with a n estimated left ventricular ejection fraction of 70 %. IMPRESSION: No scintigraphic evidence for reversible ischemia.
--- NOTE | 2020-10-24 13:31 | ECHOF ---
Referral Reason:worsening fatigue and shortness of breath MEASUREMENTS -------- HEIGHT: 162.6 cm WEIGHT: 52.2 kg BP: 110/71 IVSd: 0.7 cm (0.6 - 1.1) LVIDd: 4.4 cm (3.9 - 5.3) LVPWd: 0.8 cm (0.6 - 1.1) IVSs: 1.1 cm LVIDs: 2.7 cm LVPWs: 1.2 cm FINDINGS -------- Sinus rhythm. Limited Study The left ventricular size is normal. Left ventricular wall thickness is normal. Overall left vent ricular systolic function is normal with, an EF between 55 - 60 %. There is no evidence of cardiac tamponade. There is a moderate pericardial effusion is located near the right ventricle which appears unchanged from prior exam. CONCLUSIONS -------- 1. The left ventricular size is normal. 2. Left ventricular wall thickness is normal. 3. Overall left ventricular systolic function is normal with, an EF between 55 - 60 %. 4. There is no evidence of cardiac tamponade. 5. There is a moderate pericardial effusion is located near the right ventricle which appears unchang ed from prior exam. BEHAVIORAL SCIENCES INSTRUCTOR: Lana Ruiz RDCS
[2020-10-24] MEDS ORDERED: HEPARIN SODIUM,PORCINE 5,000 UNIT/ML 1 ML VIAL IV ONE (14:03)
[2020-10-24] MEDS ORDERED: ASPIRIN 325 MG TAB PO STA (14:03)
[2020-10-24] MEDS ORDERED: HEPARIN SODIUM,PORCINE 5,000 UNIT/ML 1 ML VIAL IV PRN (14:03)
[2020-10-24] MEDS ORDERED: HEPARIN SOD,PORK IN 0.45% NACL 25,000 UNIT in 0.45% NACL 1 250ML.BAG IV SCH (14:15)
[2020-10-24] MEDS ORDERED: ALPRAZolam 0.25 MG TAB PO PRN (14:23)
[2020-10-24] MEDS ORDERED: ALPRAZolam 0.5 MG TAB PO PRN (14:23)
[2020-10-24] MEDS ORDERED: SODIUM CHLORIDE 0.9% 1,000 ML in EMPTY BAG 1 BAG IV ONE (14:23)
[2020-10-24] MEDS ORDERED: ATORVASTATIN 80 MG TAB PO STA (14:23)
[2020-10-24] MEDS: TRIMETHOBENZAMIDE 300 MG CAP PO SCH ×2 (14:24→14:28)
[2020-10-24 14:34] LABS: Basophils % (A) 1 %; Eosinophils # (A) 0.1 k/uL (0-0.7); Eosinophils % (A) 1 %; HCT 41.7 % (34.0-46.0); Lymphocytes # (A) 1.3 k/uL (1.0-4.8); Lymphocytes % (A) 17 %; MCH 29.4 pg (25.0-35.0); MCHC 33.7 g/dL (31.0-37.0); MCV 87.3 fL (80.0-100.0); Mean Platelet Volume 7.7; Monocytes # (A) 0.3 k/uL (0-1.0); Monocytes % (A) 4 %; Neutrophils # (A) 5.5 k/uL (1.3-7.7); Neutrophils % (A) 76 %; Platelet Count 230 k/uL (150-450); RBC 4.77 m/uL (3.80-5.40); RDW 12.7 % (11.5-15.5); WBC 7.2 k/uL (3.8-10.6)
[2020-10-24 14:41] LABS: INR 1.1 (<1.2); Partial Thromboplastin Time 24.5 sec (22.0-30.0); Prothrombin Time 11.5 sec (9.0-12.0)
[2020-10-24] MEDS ORDERED: LIDOCAINE 1% INJ 10MG/ML (20 ML MDV) ONE (15:58)
[2020-10-24] MEDS ORDERED: VERAPAMIL 2.5 MG/ML 2 ML AMP ONE (15:58)
--- NOTE | 2020-10-24 16:05 | P.PN ---
Subjective Progress Note Date: 10/24/20 This is a 25-year-old female admitted with generalized weakness, nausea of 2 weeks, palpitations or lightheadedness and dizziness. Denies family history of CAD, ablation or arrhythmias. Caffeine intake minimal, usually consumes 1 cup of coffee in the morning which she has not had an over 2 weeks. Symptoms persist, sinus tachycardia at rest with heart rates up into the 110s. Echo reporting moderate paracardial effusion near the right ventricle with a normal LV function. ESR 2, CRP less than 5. Complains of nausea, unable to tolerate Reglan. Teary-eyed as she has 2 children at home and currently feels unable to do minimal activity, reports symptoms worsened with exertion including shortness of breath and fatigue, while attending to ADLs. Telemetry sinus tachycardia, heart rates ranging 90 to 120s. Negative for orthostatic hypotension. Troponin is negative 3. T-max 99, normal WBC. CT of abdomen and pelvis reported no concerning masses or adenopathy. TSH from 10/07/20 7.150. 10/24/20 persistent symptoms of tachycardia, nausea, weakness, lightheadedness during the night. Reporting no changes in symptoms with the addition of colchicine and steroids.NPO. Scheduled for repeat echo and stress test this morning. Objective - Vital Signs Vital signs: Vital Signs Temp 98.4 F 10/24/20 02:00 Pulse 102 H 10/24/20 02:00 Resp 18 10/24/20 02:00 BP 110/71 10/24/20 02:00 Pulse Ox 98 10/24/20 02:00 Intake & Output 10/23/20 10/24/20 10/24/20 18:59 06:59 18:59 Weight 52.163 kg Other: Voiding Method Bedside Commode Bedside Commode # Voids 1 1 - Exam PHYSICAL EXAM: VITAL SIGNS: [As above] GENERAL: Alert and oriented 3, Sitting up in bed, no acute distress. HEENT: Conjunctivae normal. eyes normal. NECK: No JVD. No thyroid enlargement. CARDIOVASCULAR: S1, S2 regular. No murmur RESPIRATION: Breath sounds clear to auscultation ABDOMEN: Soft, nondistended, mid epigastric tenderness . No guarding. Positive Bowel sounds. LEGS: No edema. no swelling. NERVOUS SYSTEM: Cranial N 2-12 grossly normal. Moves all 4 limbs. No focal deficits. Strength and sensation grossly intact. Skin: no lesions, no rash. No spotting/dots on palms or soles of feet. - Labs CBC & Chem 7: 10/24/20 14:19 10/22/20 11:22 Assessment and Plan Assessment: Generalized weakness, with persistent nausea multifactorial secondary to dehydration related to diuretics which have been discontinued, palpitations, etiology unclear, possible pericarditis or viral endocarditis, though ESR, CRP within normal limits, reporting no change in symptoms with the addition of colchicine and NSAIDs. CT does not report findings of malignancy. Lack of risk factors, patient does not have family history of CAD, A. fib, ablation. Moderate pericardial effusion near Right ventricle normal LV function POssible GERDS, GI consulted Possible pheochromocytoma, workup in progress Hypothyroidism Anxiety Depression Plan: Continue on current medication regime ,monitoring and symptomatic treatment. Repeat Echo/Stress test pending.Ruling out pheochromocytoma:SHYANN, urine: VMA and metanephrines ordered .GI consulted. The impression and plan of care has been dictated as directed. : I performed a history and examination of this patient, discussed the same with the dictator. I agree with the dictator's note ,documented as a scribe. Any additional findings or plans will be noted.
[2020-10-24] MEDS ORDERED: IV FLUID CONTINUATION 1,000 ML IV ONE (16:30)
[2020-10-24] MEDS ORDERED: fentaNYL (PF) 50 MCG/ML 2 ML AMP ONE (16:32)
[2020-10-24] MEDS: fentaNYL (PF) 50 MCG/ML 2 ML AMP IV ONE ×2 (16:36→16:55)
[2020-10-24] MEDS ORDERED: MIDAZOLAM 2 MG/2 ML VIAL IV ONE (16:36)
[2020-10-24] MEDS ORDERED: LIDOCAINE 1% INJ 10MG/ML (20 ML MDV) SQ ONE (16:40)
[2020-10-24] MEDS ORDERED: VERAPAMIL SYRINGE (5 MG/10 ML) INTRAARTER ONE (16:51)
[2020-10-24] MEDS ORDERED: IOPAMIDOL-370 50ML BTL INJ ONE (17:07)
[2020-10-24] MEDS ORDERED: IOPAMIDOL-370 125ML BTL INJ ONE (17:07)
--- NOTE | 2020-10-24 20:11 | CONS ---
CONSULTATION DATE OF DICTATION: 10/24/2020 REASON FOR CONSULTATION: Epigastric pain and persistent nausea. HISTORY OF PRESENT ILLNESS: The patient is a 25-year-old pleasant white female who came to the emergency room complaining of generalized weakness, persistent nausea, palpitations, epigastric discomfort and dizziness for the last 3 weeks' duration. The patient states that one day she was driving home from work and she started developing severe dizziness, and immediately this was followed by all the above symptoms. Two days later she went and saw her family physician and she was advised to resume her Synthroid, which she stopped taking about 6 weeks ago. Despite this she continued to remain symptomatic with persistent nausea, decreased oral intake, severe palpitations and dizziness but no syncope. She came to the emergency room and subsequently was admitted to the hospital for further evaluation. She was seen by Cardiology and she is scheduled for cardiac catheterization today. She also had CT of the abdomen and pelvis done yesterday that showed trace pericardial effusion, but otherwise it was unremarkable. She had a stress test done that was unremarkable. Echocardiogram done 2 days ago showed moderate pericardial effusion. PAST MEDICAL HISTORY: Significant for hypothyroidism, anxiety, depression. HOME MEDICATIONS: K-Dur, Zofran, levothyroxine and Lasix. ALLERGIES: LEXAPRO. SOCIAL HISTORY: No smoking. No alcohol use. FAMILY HISTORY: Mother and father healthy. PAST SURGICAL HISTORY: None. REVIEW OF SYSTEMS: CARDIOPULMONARY: She does complain of palpitations and dizziness. NEUROLOGY: Unremarkable. PSYCHIATRY: History of anxiety, depression. ENT/VISION: Unremarkable. CONSTITUTIONAL: Weight loss of 10 pounds. No fever, chills, night sweats. HEMATOLOGY: Unremarkable. GI: As mentioned above. She also complains of chronic constipation with Zofran. That has been discontinued. PHYSICAL EXAMINATION: She appears comfortable. No apparent distress. Vital signs are stable. Blood pressure 110/71, pulse rate 102, temperature 98.4. HEENT examination unremarkable. Conjunctivae pink. Sclerae anicteric. Oral cavity no lesions. NECK: No JVD or lymph node enlargement. CHEST: Clear to auscultation. HEART: Regular rate and rhythm. ABDOMEN: Soft. Bowel sounds are positive. No organomegaly. Mild tenderness in the epigastric area. EXTREMITIES: No pedal edema. SKIN: No rashes. NEUROLOGIC: Alert and oriented x3. No focal deficits. LABS: Labs done at the time of admission to the hospital: WBC 10.6, hemoglobin 14.5, platelets normal. Basic metabolic panel is within normal limits. ALT, AST, T- bilirubin and alkaline phosphatase are within normal limits. Coronavirus PCR is negative. IMPRESSION: 1. Epigastric pain and persistent nausea for the last 3 weeks' duration. Rule out upper GI pathology. Rule out peptic ulcer disease or gastroesophageal reflux. 2. Dizziness, palpitations, for which she is undergoing cardiac workup. Echo showed pericardial effusion. Patient is scheduled for cardiac catheterization today. 3. History of hypothyroidism. 4. History of anxiety, depression. RECOMMENDATIONS: 1. Start her on Protonix 40 mg daily. 2. Antiemetics as needed. Will change the Zofran to Tigan and see if that helps. 3. Advance diet as tolerated after the cardiac catheterization is done. 4. If the symptomatic therapy does not work, will consider an upper endoscopy. The plan was discussed with the patient. She is agreeable to it. Thank you for this consultation. MMMELANYL / IJN: [id number] /
[2020-10-24] MEDS: TRIMETHOBENZAMIDE 300 MG CAP PO PRN (20:22)
--- NOTE | 2020-10-24 21:37 | P.CARDCATH ---
Description of Procedure: PROCEDURES PERFORMED: Left heart catheterization, bilateral coronary angiography, left ventriculogram, ultrasound access INDICATION: Abnormal stress test, chest pain and SOB concerning for angina HISTORY: Patient is a pleasant 25-year-old female who presents for worsening symptoms of lightheadedness, chest pain, shortness breath, palpitations over last 2 weeks. She had workup that showed a predominantly anterior pericardial effusion which has been stable without signs of tamponade. There was consideration of possible pericarditis however not classic symptoms, normal CRP, normal sedimentation rate and not a classic EKG. Patient underwent Lexiscan stress test where her nuclear portion was read out as normal however after L exiscan infusion she did become tachycardic with diffuse ST depressions and aVR elevation which was read out as abnormal and therefore recommendations were for heart catheterization. CONSENT:I have discussed the risks, benefits and alternative therapies for the above-mentioned procedure and for both sedation/analgesia as well as necessary blood product administration, if indicated, as they pertain to this patient. The patient has indicated understanding and acceptance of the risks and procedures discussed. PROCEDURE: After the risks, benefits and alternatives of the above mentioned procedure explained in detail with the patient, informed consent was obtained. Patient was taken to the catheterization lab and prepped and draped in usual fashion. 1% lidocaine was used to anesthetize the right radial artery. A 5- Qatari sheath was placed in the right radial artery using modified Seldinger technique and ultrasound guidance. Left coronary angiography was performed with a 5-Qatari JL 3.5 catheter and right coronary angiography was performed with a 5-Qatari JR5 catheter in various views. A 5-Qatari pigtail catheter was inserted into the left ventricle and pressure measurements were obtained. Left ventriculography was performed in the BELLA projection with a power injection. The right radial sheath was removed and a TR band was placed with hemostasis achieved. The patient tolerated the procedure well. Patient was transported back to the post catheterization holding area in stable condition. Conscious Sedation: Patient was monitored under the direct supervision of vision of myself for conscious sedation using Versed and fentanyl for a total duration of 54 minutes HEMODYNAMICS: Ao: 124/65 LV: 122/3, LVEDP 13mmHg SELECTIVE CORONARY ARTERIOGRAPHY: LEFT MAIN: The left main is a large caliber vessel which bifurcates into the LAD and circumflex. There is no significant stenosis. LEFT ANTERIOR DESCENDING CORONARY ARTERY: LAD is a large caliber vessel which wraps around to the apex. There is no significant stenosis. LEFT CIRCUMFLEX CORONARY ARTERY: Left circumflex is a moderate caliber vessel without significant stenosis. RIGHT CORONARY ARTERY: The right coronary artery is a large caliber vessel which gives off a PDA and PLV branch and is the dominant vessel. There is no significant stenosis. LEFT VENTRICULOGRAPHY: Left ventricular ejection fraction is 60% without wall motion abnormalities. There is no significant mitral regurgitation and no significant gradient with pullback across the aortic valve. FINAL IMPRESSION: 1. Normal coronary arteries as described above. 2. Normal ejection fraction 60% percent without wall motion abnormalities. PLAN: 1. Aggressive risk factor modification per most recent ACC/AHA guidelines.
--- NOTE | 2020-10-24 22:18 | P.PN ---
Subjective HPI This is a pleasant 25-year-old female past medical history significant for hypothyroidism, anxiety and depression. She does not follow in the office with a exercise physiologist certified for any reason. We have been asked to see in consultation for cardiomyopathy. She is seen and examined resting comfortably laying flat in bed in no acute distress. She states for the past 2 weeks she has not been feeling well. She has had persistent nausea, weakness and poor appetite. She also has felt intermittent episodes of palpitations. She states it happened last week when she was sitting down doing nothing in particular when she had an acute onset of a flushed warm sensation in her chest, heart pounding hard and fast with feeling light headed like she would pass out. This sensation persisted for approximately 30 minutes. Again last night she was woken up from sleep at 0300 with the same sensation. She has been following with her PCP and underwent an echo in her office. According to the patient she was told she had fluid around her heart and was started on lasix last week. She also states that this seems to have all started when she was restarted on her synthroid, anxiety medication and anti-depressants. There was a period of about 1-month when she stopped taking these pills on her own. She has since stopped taking the anxiety and depression medications. EKG reveals sinus mechanism, right bundle branch block, rightward axis and T wave abnormalities anteriorly. Laboratory reviewed, WBC 10.6, hgb 14.5, plt 217, sodium 139, potassium 3.4, creatinine 0.54, magnesium 1.8, cardiac enzymes negative x2 and NTproBNP 30, covid-19 negative, TSH from 10/07/20 7.15. 10/24/20 Patient had another episode overnight where she started to feel her heart racing, had chest pain, felt diaphoretic with "sheets drenched" and nauseous without an appetite. She said this felt similar to 2 other of her most extereme episodes. We performed a repeat echo which showed EF 60% with similar moderate pericardial effusion without tamponade unchanged from prior. Underwent Lexiscan stress test where she had normal nuclear portion however abnromal EKG portion w ith HR going up into the 160's with abnormal EKG response with diffuse ST depressions and AVR elevation concerning for ischemia. Therefore LHC was performed which showed normal coronary and normal EF. Still feeling nauseous without significant appetite. 2D echo: EF 60-65%, moderate pericardial effusion is located near the right ventricle. No evidence of cardiac tamponade. CT C/A/P: no concerning mass or adenopathy. No acute abnormalities seen. PHYSICAL EXAMINATION Blood pressure 102/62 heart rate 90-100s afebrile and maintaining oxygen saturation on room air. CONSTITUTIONAL: Appears slighly anxious HEENT: Head is normocephalic. Pupils are equal, round. Sclerae anicteric. Mucous membranes of the mouth are moist. No JVD. No carotid bruit. CHEST EXAMINATION: Lungs are clear to auscultation. No chest wall tenderness is noted on palpation or with deep breathing. HEART EXAMINATION: Tachycardic rate and rhythm. S1, S2 heard. No murmurs, gallops or rub. ABDOMEN: Soft, nontender. Positive bowel sounds. EXTREMITIES: 2+ peripheral pulses, no lower extremity edema and no calf tenderne ss. NEUROLOGIC EXAMINATION: Patient is awake, alert and oriented x3. ASSESSMENT Generalized weakness Palpitations and dizziness Localized pericardial effusion anterior, around RV, stable. Not obvious pericarditis by EKG or symptoms, no rub however being treated for possible pericarditis Hypothyroidism Intermittent episodes of sinus tachycardia associated with lightheadedness and diaphoresis. Nausea, decreased appetite PLAN New onset of symptoms of fatigue, SOB, chest pain, palpitations, lightheadedness with fairly constant nausea. Concern of abnormal EKG portion of Lexiscan stress test with patient being very symptomatic with lightheadedness and tachycardia during Lexiscan infusion and abnormal EKG response showing diffuse ischemia. Therefore LHC was performed with normal coronaries, normal LV pressures and normal EF 60%. Patient with persistent nausea, frequent and concern of more of a systemic process, pericardial effusion does not explain all of her symptoms and by recent echo no signs of tamponade, appears similar to prior. Would work up other causes of symptoms, GI, endocrine, rheumatologic. Continue current therapy with Colchicine and Motrin for possible pericarditis causing pericardial effusion and routine surveilance of pericardial effusion. If symptoms persist, may consider workup of POTS or diagnsotic and possible theraputic pericardiocentesis however would be last resort. Check repeat DDimer however noted to be normal previous admission. Objective - Vital Signs Vital signs: Vital Signs Temp 98.1 F 10/24/20 19:17 Pulse 87 10/24/20 19:17 Resp 16 10/24/20 19:17 BP 109/69 10/24/20 19:17 Pulse Ox 98 10/24/20 19:17 Intake & Output 10/24/20 10/24/20 10/25/20 06:59 18:59 06:59 Intake Total 50 Balance 50 Weight 52.16 kg Intake: IV 50 Oral 0 Other: Voiding Method Bedside Commode Bedside Commode Bedside Commode # Voids 1 - Labs CBC & Chem 7: 10/24/20 14:19 10/22/20 11:22
[2020-10-25] MEDS: LEVOTHYROXINE 25 MCG TAB PO SCH (05:48)
[2020-10-25] MEDS ORDERED: HEPARIN SODIUM,PORCINE 2,500 UNIT in SODIUM CHLORIDE 0.9% 250 ML IRRIGATION PRN (07:00)
[2020-10-25] MEDS ORDERED: HEPARIN SODIUM,PORCINE 10,000 UNIT in SODIUM CHLORIDE 0.9% 1,000 ML IRRIGATION PRN (07:00)
[2020-10-25] MEDS: PANTOPRAZOLE 40 MG TABLET PO SCH ×2 (07:50→16:47)
[2020-10-25] MEDS: TRIMETHOBENZAMIDE 300 MG CAP PO PRN (08:13)
[2020-10-25] MEDS: IBUPROFEN 600 MG TAB PO SCH ×3 (09:00→21:30)
[2020-10-25] MEDS: COLCHICINE 0.6 MG EACH PO SCH (09:03)
[2020-10-25 09:14] LABS: Basophils # (A) 0.03 X 10*3/uL (0.00-0.10); Basophils % (A) 0.4 %; Eosinophils # (A) 0.13 X 10*3/uL (0.04-0.35); Eosinophils % (A) 1.8 %; HCT 40.4 % (37.2-46.3); HGB 13.5 g/dL (12.0-15.0); Lymphocytes # (A) 1.71 X 10*3/uL (0.90-5.00); Lymphocytes % (A) 24.3 %; MCH 29.7 pg (27.0-32.0); MCHC 33.4 g/dL (32.0-37.0); MCV 88.8 fL (80.0-97.0); Mean Platelet Volume 10.7 fL (9.5-12.2); Monocytes # (A) 0.58 X 10*3/uL (0.20-1.00); Monocytes % (A) 8.2 %; Neutrophils # (A) 4.59 X 10*3/uL (1.80-7.70); Neutrophils % (A) 65.2 %; Platelet Count 241 X 10*3/uL (140-440); RBC 4.55 X 10*6/uL (4.10-5.20); RDW 12.4 % (11.5-14.5); WBC 7.05 X 10*3/uL (4.50-10.00)
[2020-10-25 09:28] LABS: African American GFR (CKD) 139.6 (60.0-200.0); Albumin 4.1 g/dL (3.80-4.90); Anion Gap 6.5 mmol/L (4.00-12.00); Calcium 8.8 mg/dL (8.7-10.3); Carbon Dioxide 23.5 mmol/L (21.6-31.8); Non-African American GFR(CKD) 120.4 (60.0-200.0); Phosphorus 4.5 mg/dL (2.4-5.1); Potassium 4.1 mmol/L (3.5-5.5)
[2020-10-25] MEDS ORDERED: FLUDROCORTISONE 0.1 MG TAB PO STA (11:20)
[2020-10-25] MEDS: SODIUM CHLORIDE 0.9% 1,000 ML IV SCH ×2 (11:38→17:58)
--- NOTE | 2020-10-25 13:08 | P.PN ---
Subjective Patient is a 24-year-old female admitted for dizziness tachycardia appears to be sinus tachycardia patient underwent extensive evaluation including cardiac catheterization. Patient is also having nausea vomiting. Patient is presently being treated for possible pericarditis all the workup so far is negative. Patient is also being treated for gastritis with Protonix and symptomatic treatment for nausea. Patient is also on colchicine. Patient appears to have her postural orthostatic tachycardia syndrome which explains the GI symptoms as well as tachycardia. Patient was having daily symptoms of palpitations and drenching in sweat at night. Patient was cleared from cardiology perspective discussed with the gastroneurology the recommending symptomatic treatment for nausea vomiting and if those symptoms doesn't improve may end up needing upper GI endoscopy that tomorrow or Tuesday. Constitutional: Denied any fatigue denied any fever. Cardio vascular: As mentioned in HPI Gastrointestinal as mentioned in HPI Pulmonary: Denied any shortness of breath cough Neurologic denied any new focal deficits All inpatient medications were reviewed and appropriate changes in these medications as dictated in the interval history and assessment and plan. Objective - Vital Signs Vital signs: Vital Signs Temp 97.9 F 10/25/20 07:00 Pulse 135 H 10/25/20 10:59 Resp 18 10/25/20 07:00 BP 122/84 10/25/20 10:59 Pulse Ox 100 10/25/20 07:00 Intake & Output 10/24/20 10/25/20 10/25/20 18:59 06:59 18:59 Intake Total 50 Output Total 400 Balance 50 -400 Weight 52.16 kg Intake: IV 50 Oral 0 Output: Urine 400 Other: Voiding Method Bedside Commode Bedside Commode # Voids 3 # Bowel Movements 1 - Exam PHYSICAL EXAMINATION: GENERAL: The patient is alert and oriented x3, not in any acute distress. Well developed, well nourished. HEENT: Pupils are round and equally reacting to light. EOMI. No scleral icterus. No conjunctival pallor. Normocephalic, atraumatic. No pharyngeal erythema. No thyromegaly. CARDIOVASCULAR: S1 and S2 present. No murmurs, rubs, or gallops. PULMONARY: Chest is clear to auscultation, no wheezing or crackles. ABDOMEN: Soft, nontender, nondistended, normoactive bowel sounds. No palpable organomegaly. MUSCULOSKELETAL: No joint swelling or deformity. EXTREMITIES: No cyanosis, clubbing, or pedal edema. NEUROLOGICAL: Gross neurological examination did not reveal any focal deficits. SKIN: No rashes. - Labs CBC & Chem 7: 10/25/20 05:37 10/25/20 05:37 Labs: Abnormal Lab Results - Last 24 Hours (Table) 10/25/20 Range/Units 05:37 Chloride 112 H (96-109) mmol/L BUN 7.0 L (9.0-27.0) mg/dL BUN/Creatinine Ratio 10.00 L (12.00-20.00) Ratio Assessment and Plan Plan: -Palpitations: Patient underwent extensive evaluation being treated for pericarditis. POTS syndrome is a consideration. Patient had a echocardiogram which is within normal limits stresses is negative -Possibility of peptic is a disease or gastritis or gastroesophageal reflux disease. She is presently on colchicine which will be continued -Patient is being worked up for pheochromocytoma with 24-hour urinary metaneph rines. -Anxiety-depression
--- NOTE | 2020-10-25 13:35 | PN ---
PROGRESS NOTE DATE OF SERVICE: 10/25/2020 The patient is a 25-year-old pleasant white female admitted to hospital with severe epigastric pain, nausea, palpitations, dizziness and near-syncope on and off for the last three weeks duration. She underwent cardiac workup done yesterday and cardiac catheterization was negative. Two days ago stress test was also negative. 2D echo showed small pericardial effusion. CT of the abdomen and pelvis was unremarkable. Patient continues to be nauseated. She has some epigastric discomfort. No emesis. PHYSICAL EXAMINATION: Appears comfortable. VITAL SIGNS: Stable. Blood pressure is 111/67, pulse rate 78, temperature 97.9. HEENT examination unremarkable. Conjunctivae pink. Sclerae anicteric. Oral cavity, no lesions. NECK: No JVD or lymph node enlargement. CHEST: Clear to auscultation. HEART: Regular rate and rhythm. ABDOMEN: Soft. Mild tenderness in the epigastric area. Bowel sounds are positive. No organomegaly. EXTREMITIES: No pedal edema. NEUROLOGIC: Alert and oriented x3. No focal deficits. LAB: CBC is normal. BUN 7, creatinine 0.7. Rest of the labs are within normal limits. IMPRESSION: 1. Epigastric pain and persistent nausea, probably related to mild gastroesophageal reflux symptoms. She may have a component of dyspepsia. 2. Dizziness, palpitations, tachycardia related to POTS syndrome. Cardiology following the patient closely. 3. History of anxiety, depression. 4. History of hypothyroidism. RECOMMENDATIONS: 1. We will continue with Tigan alternating with Zofran for the nausea. 2. Continue with Protonix 40 mg twice daily. 3. Start her on a full liquid diet and advance diet slowly as possible. 4. Monitor her symptoms closely and if she still remains symptomatic, we will consider an upper endoscopy on Tuesday. Thank you for this consultation. MMODL / IJN: [id number] /
[2020-10-25 14:23] LABS: T4, Free (Free Thyroxine) 1.61 ng/dL (0.78-2.19)
--- NOTE | 2020-10-25 15:16 | PN ---
PROGRESS NOTE Cheyenne Mann was admitted to the hospital with multiple complaints. She also had a cardiac cath that did not reveal obstructive CAD. She complains of palpitations when she stands up. She seems to have what seems to be a postural orthostatic tachycardia syndrome. Her heart rate goes up on standing, but blood pressure is unchanged. I am recommending that she should stay well hydrated. I will give her some IV fluids today, start her on Florinef, which I think will be much better than midodrine. I have also advised her to work with some exercises for her dysautonomia as well. Hydration and Florinef will be advised. She is going to be seen by Gastroenterology as well for her nausea. Vitals are stable. Tachycardia noted on standing. S1-S2 heard normally. Lungs are clear. Abdomen and lower extremity exam unchanged. Right radial cath site is clean and dry. We will see how she does over the next 24 hours after hydration and based on clinical course we will make further recommendations. MMODL / IJN: [id number] /
[2020-10-25] MEDS: ONDANSETRON 4 MG/2 ML VIAL IVP PRN (21:29)
[2020-10-26] MEDS: SODIUM CHLORIDE 0.9% 1,000 ML IV SCH ×4 (03:41→23:50)
[2020-10-26] MEDS: LEVOTHYROXINE 25 MCG TAB PO SCH (05:51)
[2020-10-26] MEDS: PANTOPRAZOLE 40 MG TABLET PO SCH ×2 (07:39→18:26)
[2020-10-26] MEDS: COLCHICINE 0.6 MG EACH PO SCH (09:19)
[2020-10-26] MEDS: IBUPROFEN 600 MG TAB PO SCH (09:20)
[2020-10-26] MEDS: FLUDROCORTISONE 0.1 MG TAB PO SCH (09:20)
--- NOTE | 2020-10-26 09:21 | PN ---
PROGRESS NOTE This young lady has what seems to be a postural orthostatic tachycardia syndrome. This morning also, heart rate is high. It started her on Florinef yesterday. She is in sinus rhythm, but upon standing heart rate was up to 120 beats per minute. Physical exam is unremarkable. I am recommending that she should not lie down in the bed and try to improve some of her autonomic condition by dangling her feet down as much as possible and doing some exercises with the legs which I explained to her. I advised her to not be lying in the bed all the time at all. We will continue IV fluids at 150 cc/hour and continue Florinef 0.1 mg daily. I will request Dr. Garcia to evaluate her tomorrow. Vitals are stable, otherwise other than the tachycardia. S1-S2 heard normally. Lungs are clear. Abdomen and lower extremity exam unchanged. She had a cardiac catheterization which revealed no significant obstructive CAD. MMODL / IJN: [id number] /
[2020-10-26] MEDS: TRIMETHOBENZAMIDE 300 MG CAP PO PRN (10:30)
--- NOTE | 2020-10-26 15:47 | PN ---
PROGRESS NOTE DATE OF SERVICE: 10/26/2020 Patient is a 25-year-old pleasant white female admitted to the hospital with dizziness, palpitations, chest discomfort, nausea and epigastric pain for the last 3 weeks duration. She is being treated symptomatically with Zofran and Tigan for the nausea and still remains symptomatic. She continues to have some epigastric pain. She has significantly decreased oral intake and has been barely able to consume any liquids. She had cardiac catheterization done which was unremarkable. Cardiology following the patient closely. PHYSICAL EXAMINATION: VITAL SIGNS: Stable. Blood pressure 119/75, pulse rate 61, temperature 97.6. HEENT: Examination unremarkable. Conjunctivae are pink. Sclerae anicteric. Oral cavity no lesions. NECK: No JVD. No lymph node enlargement. CHEST: Clear to auscultation. HEART: Regular rate and rhythm. ABDOMEN: Soft. Bowel sounds are positive. No organomegaly. Mild tenderness in the epigastric area. EXTREMITIES: No pedal edema. SKIN: No rashes. NEUROLOGIC: Alert and oriented x3. No focal deficits. LABS: WBC 7, hemoglobin 13, platelets normal. Basic metabolic panel is within normal limits. IMPRESSION: 1. Persistent epigastric pain and nausea for the last 3 weeks duration. Rule out upper GI pathology. 2. Dizziness, palpitations. Cardiac catheterization was negative. The patient is followed by Cardiology and was diagnosed with postural orthostatic tachycardia syndrome. She was started on Florinef yesterday and feels a little bit better today. 3. Hypothyroidism. 4. History of anxiety. RECOMMENDATIONS: 1. Continue with symptomatic and supportive care. 2. Antiemetics as needed. 3. Continue Protonix 40 mg daily. 4. We will proceed with an EGD tomorrow. Discussed with the patient risks, benefits and complications and she is agreeable to it. Thank you for this consultation. MMODL / IJN: [id number] /
--- NOTE | 2020-10-26 16:42 | P.PN ---
Subjective Patient is a 24-year-old female admitted for dizziness tachycardia appears to be sinus tachycardia patient underwent extensive evaluation including cardiac catheterization. Patient is also having nausea vomiting. Patient is presently being treated for possible pericarditis all the workup so far is negative. Patient is also being treated for gastritis with Protonix and symptomatic treatment for nausea. Patient is also on colchicine. Patient appears to have her postural orthostatic tachycardia syndrome which explains the GI symptoms as well as tachycardia. Patient was having daily symptoms of palpitations and drenching in sweat at night. Patient was cleared from cardiology perspective discussed with the gastroneurology the recommending symptomatic treatment for nausea vomiting and if those symptoms doesn't improve may end up needing upper GI endoscopy that tomorrow or Tuesday. 10/26/2020 Patient is still complaining of nausea had 3 episodes of diarrhea, obtaining C. diff testing patient is only able to tolerate boost in the barely able to tolerate clear liquid diets patient was complaining of some dysphagia in the throat area. Patient was concerned of thyroid her TSH is within normal limits I didn't notice any goiter on physical exam. Will probably undergo upper GI endoscopy tomorrow. Electrophysiology will evaluate the patient as well. Patient either has several orthostatic tachycardia syndrome or autonomic dysfunction. Constitutional: Denied any fatigue denied any fever. Cardio vascular: As mentioned in HPI Gastrointestinal as mentioned in HPI Pulmonary: Denied any shortness of breath cough Neurologic denied any new focal deficits All inpatient medications were reviewed and appropriate changes in these med ications as dictated in the interval history and assessment and plan. Objective - Vital Signs Vital signs: Vital Signs Temp 98.4 F 10/26/20 07:00 Pulse 76 10/26/20 07:00 Resp 18 10/26/20 07:00 BP 119/74 10/26/20 07:00 Pulse Ox 99 10/26/20 07:00 Intake & Output 10/25/20 10/26/20 10/26/20 18:59 06:59 18:59 Intake Total 660 240 240 Balance 660 240 240 Intake: Oral 660 240 240 Other: Voiding Method Bedside Commode Bedside Commode Bedside Commode # Voids 4 2 - Exam PHYSICAL EXAMINATION: GENERAL: The patient is alert and oriented x3, not in any acute distress. Well developed, well nourished. HEENT: Pupils are round and equally reacting to light. EOMI. No scleral icterus. No conjunctival pallor. Normocephalic, atraumatic. No pharyngeal erythema. No thyromegaly. CARDIOVASCULAR: S1 and S2 present. No murmurs, rubs, or gallops. PULMONARY: Chest is clear to auscultation, no wheezing or crackles. ABDOMEN: Soft, nontender, nondistended, normoactive bowel sounds. No palpable organomegaly. MUSCULOSKELETAL: No joint swelling or deformity. EXTREMITIES: No cyanosis, clubbing, or pedal edema. NEUROLOGICAL: Gross neurological examination did not reveal any focal deficits. SKIN: No rashes. - Labs CBC & Chem 7: 10/25/20 05:37 10/25/20 05:37 Assessment and Plan Plan: -Palpitations: Patient underwent extensive evaluation being treated for per icarditis. POTS syndrome or autonomic dysfunction is a consideration. Patient had a echocardiogram which is within normal limits stresses is negative. Patient will be evaluated by EP. -Possibility of peptic is a disease or gastritis or gastroesophageal reflux disease. She is presently on colchicine which will be continued, patient is also on nonsteroidal anti-inflammatory medications which will be discontinued. Patient probably will undergo upper GI endoscopy tomorrow -Patient is being worked up for pheochromocytoma with 24-hour urinary metanephrines, results of which are pending. -Anxiety-depression
[2020-10-26] MEDS: ONDANSETRON 4 MG/2 ML VIAL IVP PRN (23:47)
[2020-10-27] MEDS: SODIUM CHLORIDE 0.9% 1,000 ML IV SCH ×4 (03:01→23:44)
[2020-10-27] MEDS: LEVOTHYROXINE 25 MCG TAB PO SCH (06:11)
[2020-10-27] MEDS: PANTOPRAZOLE 40 MG TABLET PO SCH ×2 (07:22→18:22)
[2020-10-27] MEDS: COLCHICINE 0.6 MG EACH PO SCH (08:51)
[2020-10-27] MEDS: FLUDROCORTISONE 0.1 MG TAB PO SCH (08:51)
--- NOTE | 2020-10-27 11:11 | P.PN ---
Subjective This is a pleasant 25-year-old female past medical history significant for hypothyroidism, anxiety and depression. She does not follow in the office with a factorer for any reason. We have been asked to see in consultation for cardiomyopathy. She is seen and examined resting comfortably laying flat in bed in no acute distress. She states for the past 2 weeks she has not been feeling well. She has had persistent nausea, weakness and poor appetite. She also has felt intermittent episodes of palpitations. She states it happened last week when she was sitting down doing nothing in particular when she had an acute onset of a flushed warm sensation in her chest, heart pounding hard and fast with feeling light headed like she would pass out. This sensation persisted for approximately 30 minutes. Again last night she was woken up from sleep at 0300 with the same sensation. She has been following with her PCP and underwent an echo in her office. According to the patient she was told she had fluid around her heart and was started on lasix last week. She also states that this seems to have all started when she was restarted on her synthroid, anxiety medication and anti-depressants. There was a period of about 1-month when she stopped taking these pills on her own. She has since stopped taking the anxiety and depression medications. EKG reveals sinus mechanism, right bundle branch block, rightward axis and T wave abnormalities anteriorly. 2D echo: EF 60-65%, moderate pericardial effusion is located near the right ventricle. No evidence of cardiac tamponade. CT C/A/P: no concerning mass or adenopathy. No acute abnormalities seen. On 10/24: Concern of abnormal EKG portion of Lexiscan stress test with patient being very symptomatic with lightheadedness and tachycardia during Lexiscan infusion and abnormal EKG response showing diffuse ischemia. Therefore LHC was performed with normal coronaries, normal LV pressures and normal EF 60%. Patient stated on colchincine and motrin for possible pericarditis causing peric ardial effusion and routine surveilance of pericardial effusion Concern for postrual orthostatic tachycardia syndrome. Patient stated on Flornief on 10/26/20 and continued IV fluid hydration. 10/27/20: Patient seen and examined at bedside. No acute distress. She states her nausea is improving. She does c/o intermittent shortness of breath and chest pain. Plan for EGD with GI today. Telemetry reviewed- patient sinus bradycardia overnight HR 45-50s. Continues to have episodes of tachycardia, HR 100-120s. PHYSICAL EXAMINATION Blood pressure 112/66 heart rate 75 afebrile and maintaining oxygen saturation on room air. CONSTITUTIONAL: Appears slighly anxious HEENT: Head is normocephalic. Pupils are equal, round. Sclerae anicteric. Mucous membranes of the mouth are moist. No JVD. No carotid bruit. CHEST EXAMINATION: Lungs are clear to auscultation. No chest wall tenderness is noted on palpation or with deep breathing. HEART EXAMINATION: Tachycardic rate and rhythm. S1, S2 heard. No murmurs, gallops or rub. ABDOMEN: Soft, nontender. Positive bowel sounds. EXTREMITIES: 2+ peripheral pulses, no lower extremity edema and no calf tenderness. NEUROLOGIC EXAMINATION: Patient is awake, alert and oriented x3. ASSESSMENT Generalized weakness Nausea- GI following- plan for patient to undergo EGD with GI today Palpitations and dizziness - possible postural orthostatic tachycardia syndrome. Her heart rate goes up with standing, but blood pressure is unchanged. Patient's vitals are stable, other than the tachycardia. Pericardial effusion Hypothyroidism Anxiety Depression PLAN -Continue IV fluids, flornef 0.1mg daily, colchicine -Dr. Garcia will evaluate patient today. -Will continue to follow patient and make further recommendations based on hospital course. Nurse Practitioner note has been reviewed, I agree with a documented findings and plan of care. Patient was seen and examined. Objective - Vital Signs Vital signs: Vital Signs Temp 97.6 F 10/26/20 14:47 Pulse 61 10/26/20 14:47 Resp 18 10/26/20 14:47 BP 119/71 10/26/20 14:47 Pulse Ox 100 10/26/20 14:47 Intake & Output 10/25/20 10/26/20 10/26/20 18:59 06:59 18:59 Intake Total 660 240 420 Balance 660 240 420 Intake: Oral 660 240 420 Other: Voiding Method Bedside Commode Bedside Commode Bedside Commode # Voids 4 2 4 # Bowel Movements 4 - Labs CBC & Chem 7: 10/25/20 05:37 10/25/20 05:37
--- NOTE | 2020-10-27 13:02 | P.EPCON ---
Electrophysiology Consult - EP Consult Electrophysiology Consult: This is Dr. Garcia dictating a consult on this patient The patient was interviewed and examined Consulted by Dr. Buckner IMPRESSION / ASSESSMENT: Viral infection in JulyDecember 2019 Onset of current symptoms consistent with Orthostatic intolerance/POTS in late September No arrhythmias documented She has GI symptoms consistent with post viral syndrome/autonomic effects as well as cardiac symptoms and skin symptoms She does have evidence of pericarditis on 2-D echo consistent with a post viral etiology PLAN: Increase fluid and salt intake. This was explained to the patient Strength training of the lower extremity muscles. This was also explained to the patient She will not be able to do aerobic exercise at this time and is a preferably avoided for now to avoid worsening of symptoms Later, endurance training Agree with Henrique for the next 3-4 months Consider Midodrin 10 mg 3 times a day at 6 AM, 11 AM and 5 PM. Midrin should be administered specifically at these times for the next 2-3 weeks May consider colchicine and low-dose if she can tolerate it HPI For the last 3 weeks patient has been experiencing episodes of dizziness lightheadedness preceded by pounding and palpitations. Associated nausea or sweatiness Complains of GI symptoms sometimes of constipation subtends a diarrhea and early satiety Complains of presyncope associated with pounding sensation in the chest/rapid heartbeat Her symptoms began about 3 weeks back in the end of September In mid July, she had a severe viral syndrome and she is quite sick for about a week or 2 ROS: No fever chills or rigors, no cough, phlegm or expectoration, no nausea, vomiting or diarrhea, no hematuria, dysuria, no musculoskeletal complaints, no strokes or seizures, no skin lesions. EXAMINATION: When she arrived her blood pressure was 102/66 and 9906 2 mmHg. Today her blood pressures 112/66. His mercury Heart rates have been in the 50s to 70s. Occasionally heart rate has gone up 135 beats a minute Breath sounds are clear no rhonchi no crackles Normal heart sounds normal S1 normal S2 normal no murmurs Abdomen is soft No lower extremity edema REVIEW OF LABS, ECG & MEDICAL DATA Twelve-lead ECG shows right bundle branch block, incomplete , some ECG showed nonspecific ST-T changes Pericardial effusion over the right ventricle without pericardial tamponade Normal coronary arteries by coronary angiography
[2020-10-27] MEDS ORDERED: LIDOCAINE 1% INJ 10MG/ML (20 ML MDV) ONE (13:25)
[2020-10-27] MEDS ORDERED: PROPOFOL 10 MG/ML 20 ML VIAL IV ONE (13:25)
[2020-10-27] MEDS ORDERED: IV FLUID CONTINUATION 500 ML IV ONE (13:26)
--- NOTE | 2020-10-27 13:49 | P.PCN ---
Date of Procedure: 10/27/20 Description of Procedure: BRIEF HISTORY: Patient is a 25-year-old female with complaints of epigastric abdominal pain and nausea persisted over the past 2 weeks. Symptoms have resulted in decreased oral intake. Currently undergoing cardiac evaluation.. PROCEDURE PERFORMED: Esophagogastroduodenoscopy with biopsy. PREOPERATIVE DIAGNOSIS: Epigastric abdominal pain, nausea. ESTIMATED BLOOD LOSS: Minimal. IV sedation per anesthesia. PROCEDURE: After informed consent was obtained, the patient was brought into the endoscopy unit. IV sedation was administered by Anesthesia under continuous monitoring. Initially the Olympus GIF-190 video endoscope was inserted into the mouth. Esophagus intubated without any difficulty. It was gradually advanced into the stomach and duodenum and carefully examined. The bulb and the second part of the duodenum appeared normal, with biopsies taken. The scope at this time was withdrawn to the stomach, adequately insufflated with air, and upon careful examination, mucosa of the antrum, body, cardia and the fundus appeared normal, except for some linear erythema in the antrum suggestive of mild gastritis. Biopsies of the antrum and body taken. The scope was then withdrawn into the esophagus. The GE junction was located at 39 cm from the incisors and biopsied. The esophagus appeared normal. There were no erosions or ulcerations seen and the patient tolerated the procedure well. IMPRESSION: 1. Mild gastritis. 2. Biopsies of the duodenum, antrum body and GE junction. RECOMMENDATIONS: The findings of this examination were discussed with the patient and her mother. Okay to resume diet. Okay to resume medications. Recommend a two-month course of daily PPI therapy. Okay for discharge when otherwise medically stable from GI.
--- NOTE | 2020-10-27 15:17 | P.PN ---
Subjective Progress Note Date: 10/27/20 This is a 25-year-old female admitted with generalized weakness, nausea of 2 weeks, palpitations or lightheadedness and dizziness. Denies family history of CAD, ablation or arrhythmias. Caffeine intake minimal, usually consumes 1 cup of coffee in the morning which she has not had an over 2 weeks. Symptoms persist, sinus tachycardia at rest with heart rates up into the 110s. Echo reporting moderate paracardial effusion near the right ventricle with a normal LV function. ESR 2, CRP less than 5. Complains of nausea, unable to tolerate Reglan. Teary-eyed as she has 2 children at home and currently feels unable to do minimal activity, reports symptoms worsened with exertion including shortness of breath and fatigue, while attending to ADLs. Telemetry sinus tachycardia, heart rates ranging 90 to 120s. Negative for orthostatic hypotension. Troponin is negative 3. T-max 99, normal WBC. CT of abdomen and pelvis reported no concerning masses or adenopathy. TSH from 10/07/20 7.150. 10/24/20 persistent symptoms of tachycardia, nausea, weakness, lightheadedness during the night. Reporting no changes in symptoms with the addition of colchicine and steroids.NPO. Scheduled for repeat echo and stress test this morning. 10/27/2020 NPO, scheduled for EGD today. Reports it up in chair all day yesterday, and was able to ambulate to bathroom. Complaints of persistent nausea, vomiting and abdominal pain. Florinef initiated yesterday, sodium 142. Telemetry reporting sinus bradycardia during the night with heart rates as low as in the mid 40s, tachycardia today, up to 120s reported. Dr. Garcia consulted, recommendations pending. Afebrile. Tested negative for C. difficile. Objective - Vital Signs Vital signs: Vital Signs Temp 98 F 10/27/20 07:00 Pulse 59 L 10/27/20 07:00 Resp 16 10/27/20 07:00 BP 112/66 10/27/20 07:00 Pulse Ox 97 10/27/20 07:00 Intake & Output 10/26/20 10/27/20 10/27/20 18:59 06:59 18:59 Intake Total 420 1200 100 Balance 420 1200 100 Weight 52.16 kg Intake: IV 100 Intake, IV Titration 1200 Amount Sodium Chloride 0.9% 1, 1200 000 ml @ 150 mls/hr IV . Q6H40M [facility] Rx#:[id number] Oral 420 Other: Voiding Method Bedside Commode Bedside Commode Bedside Commode # Voids 4 2 # Bowel Movements 4 - Exam PHYSICAL EXAM: VITAL SIGNS: [As above] GENERAL: Alert and oriented 3, Sitting up in bed, no acute distress. HEENT: Conjunctivae normal. eyes normal. NECK: No JVD. No thyroid enlargement. CARDIOVASCULAR: S1, S2 regular. No murmur RESPIRATION: Breath sounds clear to auscultation ABDOMEN: Soft, nondistended, diffuse tenderness . No guarding. Positive Bowel sounds. LEGS: No edema. no swelling. NERVOUS SYSTEM: Cranial N 2-12 grossly normal. Moves all 4 limbs. No focal deficits. Skin: no lesions, no rash. No spotting/dots on palms or soles of feet. - Labs CBC & Chem 7: 10/25/20 05:37 10/25/20 05:37 Assessment and Plan Assessment: Generalized weakness, with persistent nausea multifactorial secondary to dehydration related to diuretics which have been discontinued, palpitations with dizziness, etiology unclear, possible viral pericarditis,though ESR, CRP within normal limits, reporting no change in symptoms with the addition of colchicine and NSAIDs. CT does not report findings of malignancy. Lack of risk factors, patient does not have family history of CAD, A. fib, ablation. Moderate pericardial effusion near Right ventricle normal LV function, without pericardial tamponade. POssible GERDS, GI consulted Possible pheochromocytoma, workup in progress Hypothyroidism Anxiety Depression Plan: Continue on current medication regime ,monitoring and symptomatic treatment. EGD pending. Ruling out pheochromocytoma:SHYANN, urine: VMA and metanephrines -results pending.Dr. Garcia recommendations pending. Recommend high salt diet, continue on Florinef. Discharge planning in progress soon. The impression and plan of care has been dictated as directed. : I performed a history and examination of this patient, discussed the same with the dictator. I agree with the dictator's note ,documented as a scribe. Any additional findings or plans will be noted.
[2020-10-27] MEDS: ONDANSETRON 4 MG/2 ML VIAL IVP PRN (17:27)
[2020-10-27] MEDS ORDERED: ACETAMINOPHEN TAB 325 MG TAB PO PRN (18:08)
[2020-10-28] MEDS: TRIMETHOBENZAMIDE 300 MG CAP PO PRN (04:54)
[2020-10-28] MEDS: LEVOTHYROXINE 25 MCG TAB PO SCH (04:55)
[2020-10-28] MEDS: SODIUM CHLORIDE 0.9% 1,000 ML IV SCH (04:56)
[2020-10-28] MEDS: PANTOPRAZOLE 40 MG TABLET PO SCH (07:16)
[2020-10-28 08:56] LABS: African American GFR (CKD) >90 (>60 ml/min/1.73 sqM); Anion Gap 6 mmol/L; Calcium 8.4 mg/dL (8.4-10.2); Carbon Dioxide 27 mmol/L (22-30); Chloride 107 mmol/L (98-107); Glucose 83 mg/dL (74-99); Non-African American GFR(CKD) >90 (>60 ml/min/1.73 sqM); Potassium 3.5 mmol/L (3.5-5.1); Sodium 140 mmol/L (137-145)
[2020-10-28 08:57] LABS: Blood Urea Nitrogen 3 mg/dL (7-17)
[2020-10-28] MEDS: COLCHICINE 0.6 MG EACH PO SCH (09:30)
[2020-10-28] MEDS: FLUDROCORTISONE 0.1 MG TAB PO SCH (09:30)
[2020-10-28] MEDS ORDERED: MIDODRINE 5 MG TAB PO SCH ×2 (11:00)
[2020-10-28 12:52] VITALS: BP 123/77; PULSE 49; RESP 14; TEMP 98.8
--- NOTE | 2020-10-28 14:42 | P.PN ---
Subjective This is a pleasant 25-year-old female past medical history significant for hypothyroidism, anxiety and depression. She does not follow in the office with a transmitter operator for any reason. We have been asked to see in consultation for cardiomyopathy. She is seen and examined resting comfortably laying flat in bed in no acute distress. She states for the past 2 weeks she has not been feeling well. She has had persistent nausea, weakness and poor appetite. She also has felt intermittent episodes of palpitations. She states it happened last week when she was sitting down doing nothing in particular when she had an acute onset of a flushed warm sensation in her chest, heart pounding hard and fast with feeling light headed like she would pass out. This sensation persisted for approximately 30 minutes. Again last night she was woken up from sleep at 0300 with the same sensation. She has been following with her PCP and underwent an echo in her office. According to the patient she was told she had fluid around her heart and was started on lasix last week. She also states that this seems to have all started when she was restarted on her synthroid, anxiety medication and anti-depressants. There was a period of about 1-month when she stopped taking these pills on her own. She has since stopped taking the anxiety and depression medications. EKG reveals sinus mechanism, right bundle branch block, rightward axis and T wave abnormalities anteriorly. 2D echo: EF 60-65%, moderate pericardial effusion is located near the right ventricle. No evidence of cardiac tamponade. CT C/A/P: no concerning mass or adenopathy. No acute abnormalities seen. On 10/24 Concern of abnormal EKG portion of Lexiscan stress test with patient being very symptomatic with lightheadedness and tachycardia during Lexiscan infusion and abnormal EKG response showing diffuse ischemia. Therefore LHC was performed with normal coronaries, normal LV pressures and normal EF 60%. Patient stated on colchincine and motrin for possible pericarditis causing pericardial effusion and routine surveilance of pericardial effusion Concern for postrual orthostatic tachycardia syndrome. Patient stated on Flornief on 10/26/20 and continued IV fluid hydration. 10/28/20: Patient seen and examined at bedside. Patient did have some nausea after eating grilled cheese yesterday. Telemetry reviewed- normal sinus rhythm patient sinus bradycardia overnight HR 45-50s. PHYSICAL EXAMINATION Blood pressure 123/77 heart rate 40-50s afebrile and maintaining oxygen saturation on room air. CONSTITUTIONAL: Appears slighly anxious HEENT: Head is normocephalic. Pupils are equal, round. Sclerae anicteric. Mucous membranes of the mouth are moist. No JVD. No carotid bruit. CHEST EXAMINATION: Lungs are clear to auscultation. No chest wall tenderness is noted on palpation or with deep breathing. HEART EXAMINATION: Tachycardic rate and rhythm. S1, S2 heard. No murmurs, gallops or rub. ABDOMEN: Soft, nontender. Positive bowel sounds. EXTREMITIES: 2+ peripheral pulses, no lower extremity edema and no calf tenderness. NEUROLOGIC EXAMINATION: Patient is awake, alert and oriented x3. ASSESSMENT Generalized weakness Nausea- GI following- plan for patient to undergo EGD with GI today Palpitations and dizziness - possible postural orthostatic tachycardia syndrome. Her heart rate goes up with standing, but blood pressure is unchanged. Patient's vitals are stable, other than the tachycardia. Pericardial effusion Hypothyroidism Anxiety Depression PLAN -Dr Garcia evaluated patient- Flornef 0.1mg daily for 3-4 months, Midodrine 10mg TID at 6am, 11am, and 5pm for 2-3 weeks. -Emphasis on increased fluid and salt intake, strength training of lower extremity muscle. Avoid aerobic exercise at this time. -Patient stable for discharge from cardiology standpoint, patient will follow up in the office with Dr. Sagastume in 1-2 weeks. Nurse Practitioner note has been reviewed, I agree with a documented findings and plan of care. Patient was seen and examined. Objective - Vital Signs Vital signs: Vital Signs Temp 98.8 F 10/28/20 07:00 Pulse 49 L 10/28/20 07:00 Resp 14 10/28/20 07:00 BP 123/77 10/28/20 07:00 Pulse Ox 97 10/28/20 00:44 Intake & Output 10/27/20 10/28/20 10/28/20 18:59 06:59 18:59 Intake Total 200 1200 Balance 200 1200 Weight 52.16 kg Intake: IV 100 Intake, IV Titration 1200 Amount Sodium Chloride 0.9% 1, 1200 000 ml @ 150 mls/hr IV . Q6H40M [facility] Rx#:[id number] Oral 100 Other: Voiding Method Bedside Commode Bedside Commode Bedside Commode # Voids 1 2 - Labs CBC & Chem 7: 10/25/20 05:37 10/28/20 08:20 Labs: Abnormal Lab Results - Last 24 Hours (Table) 10/28/20 Range/Units 08:20 BUN 3 L (7-17) mg/dL
--- NOTE | 2020-10-28 16:11 | P.DS ---
Providers Date of admission: 10/24/20 15:26 Expected date of discharge: 10/28/20 Attending physician: aDnyel Morales MD Consults: 10/22/20 02:20 Consult Physician Urgent Consulting Provider: Laurel Cox Consult Reason/Comments: cardiomyopathy Do you want consulting provider notified?: Yes Primary care physician: Mariola Estrada [facility] Course: Final Diagnoses: Generalized weakness, with multiple symptoms including: persistent nausea multifactorial secondary to dehydration related to diuretics which have been discontinued, tachycardia with palpitations and dizziness, etiology unclear, suspect viral pericarditis,though ESR, CRP within normal limits, reporting no change in symptoms with the addition of colchicine and NSAIDs. CT did not report findings of malignancy. Lack of risk factors, patient does not have family history of CAD, A. fib, ablation. Lexiscan test reported diffuse ischemia. Cardiac cath performed reporting normal coronaries, normal LV pressures and normal EF. Possible postural orthostatic tachycardia syndrome, Florinef initiated, heart rate increases with standing, blood pressure unchanged Moderate pericardial effusion near Right ventricle normal LV function, without pericardial tamponade. POssible GERDS, status post EGD reporting mild gastritis with biopsies obtained Pheochromocytoma,ruled out, urine VMA,VMA?/creatinine within normal limits, Hypothyroidism Anxiety Depression Hospital course: This is a 25-year-old female admitted with generalized weakness, nausea of 2 weeks, palpitations or lightheadedness and dizziness. Denies family history of CAD, ablation or arrhythmias. Caffeine intake minimal, usually consumes 1 cup of coffee in the morning which she has not had an over 2 weeks. Symptoms persist, sinus tachycardia at rest with heart rates up into the 110s. Echo reporting moderate paracardial effusion near the right ventricle with a normal LV function. ESR 2, CRP less than 5. Complains of nausea, unable to tolerate Reglan. Teary-eyed as she has 2 children at home and currently feels unable to do minimal activity, reports symptoms worsened with exertion including shortness of breath and fatigue, while attending to ADLs. Telemetry sinus tachycardia, heart rates ranging 90 to 120s. Negative for orthostatic hypotension. Troponin is negative 3. T-max 99, normal WBC. CT of abdomen and pelvis reported no concerning masses or adenopathy. TSH from 10/07/20 7.150. 10/24/20 persistent symptoms of tachycardia, nausea, weakness, lightheadedness during the night. Reporting no changes in symptoms with the addition of colchicine and steroids.NPO. Scheduled for repeat echo and stress test this morning. 10/27/2020 NPO, scheduled for EGD today. Reports it up in chair all day yesterday, and was able to ambulate to bathroom. Complaints of persistent nausea, vomiting and abdominal pain. Florinef initiated yesterday, sodium 142. Telemetry reporting sinus bradycardia during the night with heart rates as low as in the mid 40s, tachycardia today, up to 120s reported. Dr. Garcia consulted, recommendations pending. Afebrile. Tested negative for C. difficile. Patient was also evaluated by Dr. Garcia, recommended:Flornef 0.1mg daily for 3-4 months, Midodrine 10mg TID at 6am, 11am, and 5pm for 2-3 weeks. -Emphasis on increased fluid and salt intake, strength training of lower extremity muscle. Avoid aerobic exercise at this time. Cleared by cardiology, GI for discharge.Significant clinical improvement. Patient will be discharged home in a stable condition with guarded prognosis. Patient evaluated by PT. Rolling walker required at discharge as patient feels more comfortable with roller walker secondary to decreased lower extremity strength compared to baseline. The impression and plan of care has been dictated as directed. : I performed a history and examination of this patient, discussed the same with the dictator. I agree with the dictator's note ,documented as a scribe. Any additional findings or plans will be noted. Patient Condition at Discharge: Stable Plan - Discharge Summary Discharge Rx Participant: No New Discharge Prescriptions: New Midodrine [ProAmatine] 10 mg PO 0600,1100,1700 #42 tab Pantoprazole [Protonix] 40 mg PO AC-BID #60 tablet. Fludrocortisone [Florinef] 0.1 mg PO DAILY #30 tab Continue Levothyroxine Sodium 25 mcg PO DAILY Ondansetron Odt [Zofran ODT] 4 mg PO Q8HR PRN #10 tab PRN Reason: Nausea Discontinued Potassium Chloride ER [K-Dur 10] 10 meq PO DAILY Furosemide [Lasix] 20 mg PO DAILY Discharge Medication List Levothyroxine Sodium 25 mcg PO DAILY 02/21/18 [History] Ondansetron Odt [Zofran ODT] 4 mg PO Q8HR PRN #10 tab 03/02/21 [Rx] Fludrocortisone [Florinef] 0.1 mg PO DAILY #30 tab 10/28/20 [Rx] Midodrine [ProAmatine] 10 mg PO 0600,1100,1700 #42 tab 10/28/20 [Rx] Pantoprazole [Protonix] 40 mg PO AC-BID #60 tablet. 10/28/20 [Rx] Follow up Appointment(s)/Referral(s): Satya Sagastume DO [STAFF PHYSICIAN] - 2 Weeks (Office will call with appointment) [facility] [NON-STAFF] - As Needed (Supplier of home walker ) Mariola Estrada DO [Primary Care Provider] - 10/30/20 1:15 pm (Appointment will be with .) Enrique Berry MD [STAFF PHYSICIAN] - 11/17/20 4:00 pm Patient Instructions/Handouts: Pericardial Effusion (DC), Weakness (DC), Near Syncope (DC) Activity/Diet/Wound Care/Special Instructions: Walker recommended as per PT Diet: Low-fat, soft, high salt Discharge Disposition: HOME SELF-CARE
[2020-10-29 10:24] LABS: Metanephrines 24 Hour,Urine 76 ug/day (52-341); Normetanephrine 24 Hour,Urine 211 ug/day (88-444); Total Metanephrines 24 Hour,Ur 287 ug/day (140-785)
--- NOTE | 2020-10-31 10:11 | ECHOS ---
Stress Test Results/Findings: Exam Performed: NM stress lexiscan cardiolite Exam Date: 10/24/20 Reason for Exam: ARRTHYMIA Height: 5 ft 4 in Weight: 52.16 kg Protocol: LEXISCAN CARDIOLITE Stage: NA Duration of Exercise: NA Resting Heart Rate: 89 Resting Blood Pressure: 121/65 Maximum Achieved Heart Rate: 168 Maximum Achieved Blood Pressure: 121/65 85% PMHR: 166 100% PMHR: 195 METS: NA Technologist Comment: Stress Test Results/Findings: At baseline EKG showed normal sinus rhythm, normal axis, nonspecific minimal ST depression in V2, V3. Patient recieved IV infusion of Lexiscan 0.4mg and at peak infusion EKG showed heart rate increased to approximately 168 with sinus rhythm with strongly positive diffuse downsloping ST depressions in leads 23 aVF, V3 through V6 with aVR elevation. Conclusions: 1. Grossly abnormal EKG response to Lexiscan with diffuse ST depressions and aVR elevation concerning for ischemia. Clinical correlation recommended. 2. Nuclear imaging to be reported separately. [facility]
== END 2020-10-28 14:56 | disposition home or self-care (01) | DRG 287 ==
LOC: EC 01:17 → 6NMEDSUR 02:20 → OBSVTOIN 10-24 15:26
PROVIDERS: ADMIT Family Medicine; ATTEND Family Medicine
PROC: 4A023N7 Measurement of Cardiac Sampling and Pressure, Left Heart, Percutaneous Approach (ICD-10-PCS; principal; 2020-10-24 18:10)
PROC: B2111ZZ Fluoroscopy of Multiple Coronary Arteries using Low Osmolar Contrast (ICD-10-PCS; principal; 2020-10-24 18:10)
PROC: B2151ZZ Fluoroscopy of Left Heart using Low Osmolar Contrast (ICD-10-PCS; principal; 2020-10-24 18:10)
PROC: 0DB78ZX Excision of Stomach, Pylorus, Via Natural or Artificial Opening Endoscopic, Diagnostic (ICD-10-PCS; 2020-10-27)
PROC: 0DB98ZX Excision of Duodenum, Via Natural or Artificial Opening Endoscopic, Diagnostic (ICD-10-PCS; 2020-10-27)
PROC: 0DB48ZX Excision of Esophagogastric Junction, Via Natural or Artificial Opening Endoscopic, Diagnostic (ICD-10-PCS; 2020-10-27)
DX: I49.8 Other specified cardiac arrhythmias (principal); I31.3 Pericardial effusion (noninflammatory); E03.9 Hypothyroidism, unspecified; E86.0 Dehydration; F32.9 Major depressive disorder, single episode, unspecified; F41.9 Anxiety disorder, unspecified; G90.1 Familial dysautonomia [Riley-Day]; I42.9 Cardiomyopathy, unspecified; I45.10 Unspecified right bundle-branch block; K21.9 Gastro-esophageal reflux disease without esophagitis; K29.70 Gastritis, unspecified, without bleeding; R13.10 Dysphagia, unspecified; T50.2X5A Adverse effect of carbonic-anhydrase inhibitors, benzothiadiazides and other diuretics, initial encounter; Z79.890 Hormone replacement therapy; Z79.899 Other long term (current) drug therapy; Z20.822 Contact with and (suspected) exposure to COVID-19; Z88.8 Allergy status to other drugs, medicaments and biological substances
CPT/HCPCS: 36415; 43239; 71260; 74177; 76937; 78452; 80048; 80053; 80061; 80069; 80143; 80179; 81001; 81025; 82550; 82553; 83735; 83835; 83880; 84100; 84132; 84439; 84481; 84484; 84585; 85025; 85379; 85610; 85652; 85730; 86038; 86140; 87324; 87635; 88305; 93005; 93017; 93306; 93308; 93458; 99284

== ENCOUNTER → 2021-05-19 | Outpatient (CLI) | payer OTHER ==
[~2021-05-19] MED LIST: COSYNTROPIN 0.25 MG VIAL IVP NR; SODIUM CHLORIDE 0.9% 500 ML 500 ML in EMPTY BAG 1 BAG IV PRN
[2021-05-19 11:32] VITALS: RESP 15; TEMP 98.1
[2021-05-19 12:56] VITALS: BP 101/68; PULSE 62
== END ==
LOC: PROCWHC3 11:11
PROVIDERS: ATTEND Family Medicine
DX: I49.8 Other specified cardiac arrhythmias (principal); Z88.2 Allergy status to sulfonamides; Z88.8 Allergy status to other drugs, medicaments and biological substances
CPT/HCPCS: 82024; 82533

== ENCOUNTER 2022-02-23 12:03 | Emergency (ER) | payer OTHER ==
[2022-02-23 12:09] VITALS: BP 107/72; PULSE 100; RESP 18; TEMP 97.5
[2022-02-23] MEDS ORDERED: SODIUM CHLORIDE 0.9% 1,000 ML IV ONE ×2 (13:20→14:25)
--- NOTE | 2022-02-23 13:52 | ED ---
General Adult HPI - General Source: patient, RN notes reviewed, old records reviewed Mode of arrival: ambulatory Limitations: no limitations <Khurram Briceno - Last Filed: 02/23/22 15:02> <Eli Najera - Last Filed: 02/23/22 23:56> - General Chief complaint: Nausea/Vomiting/Diarrhea Stated complaint: Vomiting Time Seen by Provider: 02/23/22 13:11 - History of Present Illness Initial comments: 26-year-old female presenting with nausea vomiting. Patient is currently 8 weeks . She is had persistent vomiting for the past 5 or 6 days. She's had some mild lower abdominal cramping. No fevers. No upper abdominal pain. This is her third per she has 2 living children. She had workup in cluding ultrasound at outside hospital she states that she was told that she had signs of dehydration and was offered admission for IV fluid. She declined at that time. She states over the past 3 days and she's been home she's had persistent symptoms. (Khurram Briceno) - Related Data Home Medications Medication Instructions Recorded Confirmed Levothyroxine Sodium 25 mcg PO DAILY 02/21/18 02/23/22 Propranolol [Inderal] 10 mg PO BID 05/19/21 02/23/22 Previous Rx's Medication Instructions Recorded Ondansetron Odt [Zofran ODT] 4 mg PO Q8HR PRN #10 tab 10/07/20 Pantoprazole [Protonix] 40 mg PO AC-BID #60 tablet. 10/28/20 Cephalexin [Keflex] 500 mg PO Q12HR 7 Days #14 cap 02/23/22 Metoclopramide [Reglan] 10 mg PO TID PRN #30 tab 02/23/22 Ondansetron Odt [Zofran Odt] 4 mg PO Q8HR PRN #30 tab 02/23/22 Allergies Allergy/AdvReac Type Severity Reaction Status Date / Time alprazolam Allergy Unknown Verified 02/23/22 14:05 midodrine Allergy Rash/Hives Verified 02/23/22 14:05 escitalopram [From Lexapro] AdvReac shaking Verified 02/23/22 14:05 metoclopramide [From Reglan] AdvReac Rapid Verified 02/23/22 14:05 Heart Rate Review of Systems ROS Other: All systems not noted in ROS Statement are negative. <Khurram Briceno Stacy - Last Filed: 02/23/22 15:02> ROS Other: All systems not noted in ROS Statement are negative. <Eli Najera Norman - Last Filed: 02/23/22 23:56> ROS Statement: Those systems with pertinent positive or pertinent negative responses have been documented in the HPI. Past Medical History Past Medical History: Thyroid Disorder Additional Past Medical History / Comment(s): hpothyroid. History of Any Multi-Drug Resistant Organisms: None Reported Past Surgical History: No Surgical Hx Reported Past Anesthesia/Blood Transfusion Reactions: No Reported Reaction Past Psychological History: Anxiety, Depression Smoking Status: Never smoker Past Alcohol Use History: None Reported Past Drug Use History: None Reported - Past Family History Mother Family Medical History: No Reported History <Khurram Briceno Stacy - Last Filed: 02/23/22 15:02> General Exam Limitations: no limitations General appearance: alert, in no apparent distress Head exam: Present: atraumatic, normocephalic Eye exam: Present: normal appearance, PERRL ENT exam: Present: mucous membranes dry Neck exam: Present: normal inspection. Absent: tenderness, meningismus Respiratory exam: Present: normal lung sounds bilaterally. Absent: respiratory distress, wheezes Cardiovascular Exam: Present: regular rate, normal rhythm GI/Abdominal exam: Present: soft. Absent: distended, tenderness, guarding, rebound Extremities exam: Present: normal inspection, normal capillary refill. Absent: pedal edema Neurological exam: Present: alert, oriented X3, CN II-XII intact. Absent: motor sensory deficit Psychiatric exam: Present: normal affect, normal mood Skin exam: Present: warm, dry, intact. Absent: cyanosis, diaphoretic <ColtonkayKhurram Stacy - Last Filed: 02/23/22 15:02> Course Vital Signs 02/23/22 12:05 Temperature 97.5 F L Pulse Rate 100 Respiratory 18 Rate Blood Pressure 107/72 O2 Sat by Pulse 100 Oximetry Medical Decision Making - Lab Data Result diagrams: 02/23/22 13:39 02/23/22 13:39 <Khurram Briceno - Last Filed: 02/23/22 15:02> - Lab Data Result diagrams: 02/23/22 13:39 02/23/22 13:39 <Eli Najera - Last Filed: 02/23/22 23:56> - Medical Decision Making 26-year-old female with -induced nausea vomiting. Patient well- appearing with stable vitals per she appears mildly dehydrated. She has a normal CBC, normal CMP, shows 3+ ketones on urinalysis as well as white cells. She'll be treated for asymptomatic bacteriuria in . She's given 2 L of IV fluid in the emergency department without further vomiting. She should follow-up with her animal surgeon. (Khurram Briceno) I evaluated the patient myself. She feels uncomfortable being discharged home as she is still extremely nauseated. I did provide her with a dose of Zofran. She reports to me that she is having intense abdominal cramping and therefore I ordered an ultrasound. Patient was given 2 L of normal saline prior to my evaluation. After fluids and antiemetics, the patient is reevaluated. I did discuss the results of the ultrasound. I spoke with Dr. Oneal. Patient will be discharged home on oral Reglan. Continue taking Zofran and alternate with t he Reglan. She can continue taking her Unisom and B6 at night. She is able to tolerate water and does not have any episodes of vomiting in the emergency department. She is instructed if she has any new or worsening symptoms to call Dr. Oneal's office and she said that she could directly admit her if needed. The patient understood and agreed to this. She was discharged home in stable condition (Eli Najera) - Lab Data Lab Results 02/23/22 02/23/22 02/23/22 Range/Units 13:39 13:39 13:39 WBC 11.0 H (3.8-10.6) k/uL RBC 4.86 (3.80-5.40) m/uL Hgb 14.6 (11.4-16.0) gm/dL Hct 42.5 (34.0-46.0) % MCV 87.4 (80.0-100.0) fL MCH 30.0 (25.0-35.0) pg MCHC 34.3 (31.0-37.0) g/dL RDW 11.7 (11.5-15.5) % Plt Count 303 (150-450) k/uL MPV 8.2 Neutrophils % 76 % Lymphocytes % 15 % Monocytes % 7 % Eosinophils % 1 % Basophils % 0 % Neutrophils # 8.4 H (1.3-7.7) k/uL Lymphocytes # 1.6 (1.0-4.8) k/uL Monocytes # 0.7 (0-1.0) k/uL Eosinophils # 0.1 (0-0.7) k/uL Basophils # 0.0 (0-0.2) k/uL Sodium 137 (137-145) mmol/L Potassium 3.9 (3.5-5.1) mmol/L Chloride 103 (98-107) mmol/L Carbon Dioxide 20 L (22-30) mmol/L Anion Gap 14 mmol/L BUN 7 (7-17) mg/dL Creatinine 0.50 L (0.52-1.04) mg/dL Est GFR (CKD-EPI)AfAm >90 (>60 ml/min/1.73 sqM) Est GFR (CKD-EPI)NonAf >90 (>60 ml/min/1.73 sqM) Glucose 80 (74-99) mg/dL Calcium 9.5 (8.4-10.2) mg/dL Magnesium 1.7 (1.6-2.3) mg/dL Total Bilirubin 0.7 (0.2-1.3) mg/dL AST 21 (14-36) U/L ALT 16 (4-34) U/L Alkaline Phosphatase 58 (38-126) U/L Total Protein 9.0 H (6.3-8.2) g/dL Albumin 5.3 H (3.5-5.0) g/dL HCG, Quant 652861.0 mIU/mL Urine Color Urine Appearance (Clear) Urine pH (5.0-8.0) Ur Specific [place] (1.001-1.035) Urine Protein (Negative) Urine Glucose (UA) (Negative) Urine Ketones (Negative) Urine Blood (Negative) Urine Nitrite (Negative) Urine Bilirubin (Negative) Urine Urobilinogen (<2.0) mg/dL Ur Leukocyte Esterase (Negative) Urine RBC (0-5) /hpf Urine WBC (0-5) /hpf Ur Squamous Epith Cells (0-4) /hpf Urine Mucus (None) /hpf Blood Type O Positive Blood Type Recheck No Previous Record Bld Type Recheck Status [facility] ONLY 02/23/22 Range/Units 14:24 WBC (3.8-10.6) k/uL RBC (3.80-5.40) m/uL Hgb (11.4-16.0) gm/dL Hct (34.0-46.0) % MCV (80.0-100.0) fL MCH (25.0-35.0) pg MCHC (31.0-37.0) g/dL RDW (11.5-15.5) % Plt Count (150-450) k/uL MPV Neutrophils % % Lymphocytes % % Monocytes % % Eosinophils % % Basophils % % Neutrophils # (1.3-7.7) k/uL Lymphocytes # (1.0-4.8) k/uL Monocytes # (0-1.0) k/uL Eosinophils # (0-0.7) k/uL Basophils # (0-0.2) k/uL Sodium (137-145) mmol/L Potassium (3.5-5.1) mmol/L Chloride (98-107) mmol/L Carbon Dioxide (22-30) mmol/L Anion Gap mmol/L BUN (7-17) mg/dL Creatinine (0.52-1.04) mg/dL Est GFR (CKD-EPI)AfAm (>60 ml/min/1.73 sqM) Est GFR (CKD-EPI)NonAf (>60 ml/min/1.73 sqM) Glucose (74-99) mg/dL Calcium (8.4-10.2) mg/dL Magnesium (1.6-2.3) mg/dL Total Bilirubin (0.2-1.3) mg/dL AST (14-36) U/L ALT (4-34) U/L Alkaline Phosphatase (38-126) U/L Total Protein (6.3-8.2) g/dL Albumin (3.5-5.0) g/dL HCG, Quant mIU/mL Urine Color Yellow Urine Appearance Cloudy H (Clear) Urine pH 6.5 (5.0-8.0) Ur Specific [place] 1.012 (1.001-1.035) Urine Protein Negative (Negative) Urine Glucose (UA) Negative (Negative) Urine Ketones 3+ H (Negative) Urine Blood Negative (Negative) Urine Nitrite Negative (Negative) Urine Bilirubin Negative (Negative) Urine Urobilinogen <2.0 (<2.0) mg/dL Ur Leukocyte Esterase Large H (Negative) Urine RBC 1 (0-5) /hpf Urine WBC 30 H (0-5) /hpf Ur Squamous Epith Cells 7 H (0-4) /hpf Urine Mucus Few H (None) /hpf Blood Type Blood Type Recheck Bld Type Recheck Status Disposition Is patient prescribed a controlled substance at d/c from ED?: No Time of Disposition: 15:03 <Khurram Briceno Stacy - Last Filed: 02/23/22 15:02> <Eli Najera - Last Filed: 02/23/22 23:56> Clinical Impression: Dehydration, Asymptomatic bacteriuria during , , Ketonuria Disposition: HOME SELF-CARE Condition: Fair Instructions (If sedation given, give patient instructions): Nausea and Vomiting in (ED), Urinary Tract Infection in (ED) Additional Instructions: Please alternate taking Zofran and Reglan for your nausea. If you continue to have vomiting, call Dr. Oneal's office and she will directly admit you to the hospital Prescriptions: Cephalexin [Keflex] 500 mg PO Q12HR 7 Days #14 cap Metoclopramide [Reglan] 10 mg PO TID PRN #30 tab PRN Reason: GERD Ondansetron Odt [Zofran Odt] 4 mg PO Q8HR PRN #30 tab PRN Reason: Nausea Referrals: Danyel Morales MD [Primary Care Provider] - 1-2 days Gissel Oneal DO [Doctor of Osteopathic Medicine] - 1-2 days
[2022-02-23 13:55] LABS: Basophils % (A) 0 %; Eosinophils # (A) 0.1 k/uL (0-0.7); Eosinophils % (A) 1 %; HCT 42.5 % (34.0-46.0); HGB 14.6 gm/dL (11.4-16.0); Lymphocytes # (A) 1.6 k/uL (1.0-4.8); Lymphocytes % (A) 15 %; MCHC 34.3 g/dL (31.0-37.0); MCV 87.4 fL (80.0-100.0); Mean Platelet Volume 8.2; Monocytes # (A) 0.7 k/uL (0-1.0); Monocytes % (A) 7 %; Neutrophils # (A) 8.4 k/uL (1.3-7.7); Neutrophils % (A) 76 %; Platelet Count 303 k/uL (150-450); RBC 4.86 m/uL (3.80-5.40); RDW 11.7 % (11.5-15.5)
[2022-02-23 14:05] LABS: ALT 16 U/L (4-34); AST 21 U/L (14-36); African American GFR (CKD) >90 (>60 ml/min/1.73 sqM); Albumin 5.3 g/dL (3.5-5.0); Alkaline Phosphatase 58 U/L (38-126); Anion Gap 14 mmol/L; Blood Urea Nitrogen 7 mg/dL (7-17); Calcium 9.5 mg/dL (8.4-10.2); Carbon Dioxide 20 mmol/L (22-30); Chloride 103 mmol/L (98-107); Glucose 80 mg/dL (74-99); Magnesium 1.7 mg/dL (1.6-2.3); Non-African American GFR(CKD) >90 (>60 ml/min/1.73 sqM); Potassium 3.9 mmol/L (3.5-5.1); Sodium 137 mmol/L (137-145); Total Bilirubin 0.7 mg/dL (0.2-1.3)
[2022-02-23 14:44] LABS: Appearance,Urine Cloudy (Clear); Bilirubin,Urine Negative (Negative); Blood,Urine Negative (Negative); Color,Urine Yellow; Glucose,Urine (UA) Negative (Negative); Ketones,Urine 3+ (Negative); Leukocyte Esterase,Urine Large (Negative); Mucus,Urine Few /hpf; Nitrite,Urine Negative (Negative); PH, Urine 6.5 (5.0-8.0); Protein,Urine Negative (Negative); RBC,Urine 1 /hpf (0-5); Specific Gravity,Urine 1.012 (1.001-1.035); Squamous Epithelial Cell,Urine 7 /hpf (0-4); Urobilinogen,Urine <2.0 mg/dL (<2.0); WBC,Urine 30 /hpf (0-5)
[2022-02-23] MEDS ORDERED: ONDANSETRON 4 MG/2 ML VIAL IVP STA (16:02)
--- NOTE | 2022-02-23 16:48 | US ---
EXAMINATION TYPE: Transabdominal DATE OF EXAM: 02/23/2022 4:32 PM COMPARISON: NONE CLINICAL HISTORY: pelvic cramping, 8 weeks . unsure of dates, mid december, , unplanned pregna ncy, took plan B pill but persists EXAM PERFORMED: OBTA EXAM MEASUREMENTS: GESTATIONAL AGE / DATING Physician Established: Not yet established Dates by LMP: (9 weeks/2 days) EDC: 09/26/2022 Dates by First Scan: No previous this is first scan Dates by Current Scan for: (7 weeks/4 days) EDC: 10/08/2022 MATERNAL ANATOMY Uterus: 9.8 x 6.4 x 5.2cm Right Ovary: 3.6 x 2.1 x 1.8cm Left Ovary: 2.6 x 2.1 x 2.1cm Post CDS / Adnexa: wnl Presence of free fluid: no Presence of corpus luteal cyst: left ovary = 3.1cm Presence of subchorionic bleed: no GESTATION / SURVEY CRL: not seen yet MSD: 2.7cm (7 weeks/4 days) Date of LMP: 12/20/2021 - maybe Beta HcG (if available): 201, 164 IMPRESSION: Small intrauterine gestational sac measures 2.7 cm and corresponds to 7 weeks and 4 days. No po le or yolk sac seen. No evidence of ectopic .
== END 2022-02-23 18:43 | disposition home or self-care (01) ==
LOC: EC 12:03
DX: O21.9 Vomiting of pregnancy, unspecified (principal); O99.281 Endocrine, nutritional and metabolic diseases complicating pregnancy, first trimester; E86.0 Dehydration; O23.91 Unspecified genitourinary tract infection in pregnancy, first trimester; R82.71 Bacteriuria; R82.4 Acetonuria; O26.891 Other specified pregnancy related conditions, first trimester; R10.30 Lower abdominal pain, unspecified; Z3A.01 Less than 8 weeks gestation of pregnancy; Z88.8 Allergy status to other drugs, medicaments and biological substances
CPT/HCPCS: 99284; 96374; 96361; 36415; 86900; 86901; 80053; 83735; 85025; 81001; 84702; 87086; 76801; J2405

== ENCOUNTER 2022-07-08 16:58 | Outpatient (CLI) | payer OTHER ==
[2022-07-08 17:35] LABS: Appearance,Urine Clear (Clear); Bilirubin,Urine Negative (Negative); Blood,Urine Negative (Negative); Color,Urine Colorless; Glucose,Urine (UA) Negative (Negative); Ketones,Urine Negative (Negative); Leukocyte Esterase,Urine Negative (Negative); Nitrite,Urine Negative (Negative); PH, Urine 6.5 (5.0-8.0); Protein,Urine Negative (Negative); Specific Gravity,Urine 1.003 (1.001-1.035); Urobilinogen,Urine <2.0 mg/dL (<2.0)
[2022-07-08] MEDS: LACTATED RINGERS 1,000 ML IV SCH ×4 (18:24→21:03)
[2022-07-08] MEDS ORDERED: ACETAMINOPHEN TAB 500 MG TAB PO STA (20:27)
--- NOTE | 2022-07-08 20:54 | US ---
EXAMINATION TYPE: US OB >= 14 wk fetus DATE OF EXAM: 07/08/2022 COMPARISON: None CLINICAL HISTORY: labor 27 weeks TECHNIQUE: Transabdominal (TA) GESTATIONAL AGE / DATING Physician Established: (27 weeks/3 days) EDC: 10-04-22 Dates by First Scan: (26 weeks/6 days) EDC: 10-08-22 Dates by Current Scan: (27 weeks/5 days) EDC: 10-02-22 SURVEY IUP: Single PLACENTA: Fundal PREVIA: Low Lying ROSANNA: 14.6 cm CERVICAL LENGTH (transabdominal: norm > 3.0cm): 3.6 cm CERVICAL LENGTH (transvaginal: norm> 2.5cm): 3.6 cm (Supplemental transvaginal imaging performed to verify cervical length.) BIOMETRY PRESENTATION: Breech BPD: 7.2 cm 29 weeks / 0 days HC: 26.4 cm 28 weeks / 5 days AC: 24.0 cm 28 weeks / 2 days FL: 5.1 cm 27. weeks / 1 days ESTIMATED WEIGHT IN GRAMS: 1160 grams ESTIMATED WEIGHT IN LBS/OZ: 2 lbs. 9 oz. WEIGHT PERCENTAGE BASED ON ESTABLISHED DATES: 61 % HC/AC: 1.1 FL/AC: 21.1 HEART RATE: 149 bpm RHYTHM: Normal IMPRESSION: The ultrasound gestational age is 27 weeks and 5 days. No complicating process seen.
[2022-07-08 22:32] VITALS: BP 114/59; PULSE 79; RESP 16; TEMP 97.2
--- NOTE | 2022-07-09 06:22 | P.MSEPDOC ---
Presenting Problems - Arrival Data Date of Arrival on Unit: 07/08/22 Time of Arrival on Unit: 16:58 Mode of Transport: Portable - Complaint OB-Reason for Admission/Chief Complaint: Possible Onset of Labor Medical History - Information : 3 Para: 2 Number of Living Children: 2 - Gestational Age Gestational Age by JAYSON (wks/days): 27 Weeks and 3 Days Review of Systems - Review of Systems Constitutional: No problems Breast: No problems ENT: No problems Cardiovascular: No problems Respiratory: No problems Gastrointestinal: No problems Genitourinary: No problems Musculoskeletal: No problems Neurological: No problems Skin: No problems Vital Signs - Temperature Temperature: 97.2 F Temperature Source: Temporal Artery Scan - Pulse Right Brachial Pulse Rate: 79 Pulse Assessment Method: Automatic Cuff - Respirations Respiratory Rate: 16 Oxygen Delivery Method: Room Air O2 Sat by Pulse Oximetry: 100 - Blood Pressure Right Arm Sitting Blood Pressure: 114/59 Blood Pressure Mean: 77 Blood Pressure Source: Automatic Cuff Medical Screen Scoring - Cervical Exam Dilation (cm): 0 Effacement (%): 0 Membranes: Intact - Assessment - Baby A Baseline FHR: 140 Heart Rate - NICHD Category: Category I (Normal) Physician Notification - Physician Notified Physician Notified Date: 07/08/22 Physician Notified Time: 21:53 Physician: Marcelina Montoya New Order Received: Yes (dc, pelvic rest, follow up tomorrow in office with Jm at scheduled appt) - Notification Comment Comment: contractions decreased with fluids, cervix closed and thick, fhts Category 1, Appt tomorrow with Jm Maternal Triage Index - Urgent/Priority 2 Urgent Priority 2: Yes Provider Notified: Marcelina Montoya Provider Notified Time: 17:56 Criteria Met for Priority 2: 27 3/7, mild detectable contractions Disposition - Disposition OB Disposition: Triage, Discharge to home, Written follow up instructions reviewed Discharge Date: 07/08/22 Discharge Time: 22:00 I agree with the RN Medical Screening Exam: Yes Physician's MSE Comment: Patient's cervix was closed and thick and cervical length was 36 mm. She presented with lower back pain and pressure and regular contractions. FFN was positive. She was given 2 L of fluid and Tylenol. Her contractions did subside but she still continued to have back pain. She requested to go home and does h ave an appointment with Dr. Oneal to follow-up the next day. Case reviewed; plan agreed upon as documented in EMR&OBIX.: Yes Diagnosis: LOW BACK PAIN, UNSPECIFIED Additional Diagnoses: contractions with positive FFN
--- NOTE | 2022-07-09 07:29 | US ---
EXAMINATION TYPE: US OB TV Cervical Measurement DATE OF EXAM: 07/08/2022 COMPARISON: US REASON FOR EXAM: Per Ordering Physician?this transvaginal scan is to assess the CERVICAL LENGTH for i ncompetence or funneling. GESTATIONAL AGE / DATING Physician Established: (27 weeks/3 days) EDC: 10-04-21 Dates by Current Scan: MATERNAL/ SURVEY CERVICAL LENGTH (transvaginal: norm> 2.5cm): 3.6 cm Ultrasound evidence of shortened cervix? no Ultrasound evidence of funneling? no PRESENTATION: LIE: Breech See OB>14weeks for picture HEART RATE: 149 bpm See OB>14weeks for picture RHYTHM: Normal IMPRESSION: 1 Normal appearance to the cervix. 2. Intrauterine gestation not evaluated on this exam. Cardiac activity however is observed measuring 149 beats
== END 2022-07-08 22:00 | disposition home or self-care (01) ==
LOC: FBPOP 16:58
PROVIDERS: ATTEND Obstetrics & Gynecology
DX: O26.892 Other specified pregnancy related conditions, second trimester (principal); Z3A.27 27 weeks gestation of pregnancy; M54.50 Low back pain, unspecified; Z88.8 Allergy status to other drugs, medicaments and biological substances
CPT/HCPCS: 96360; 96361; 82731; 81003; 76805; 76817; G0463; 99214

== ENCOUNTER 2022-07-09 13:39 | Outpatient (CLI) | payer OTHER ==
[2022-07-09] MEDS ORDERED: BETAMET ACET-BETAMETH SOD PHOS 6 MG/ML MDV IM SCH (14:45)
[2022-07-09 16:30] VITALS: BP 102/56; PULSE 85; RESP 17; TEMP 96.8
--- NOTE | 2022-08-03 20:56 | P.MSEPDOC ---
Presenting Problems - Arrival Data Date of Arrival on Unit: 07/09/22 Time of Arrival on Unit: 13:39 Mode of Transport: Wheelchair - Complaint OB-Reason for Admission/Chief Complaint: Other Comment: pt presents to triage for overall not feeling well, she was here last night and received IVF and FFN was done, results were positive, still having back pain rating at 5/10, denies any fevers and sickness other than some nausea which she has had during Medical History - Information : 3 Para: 2 Term: 2 : 0 Abortions: Spontaneous or Elective: 0 Number of Living Children: 2 - Gestational Age Gestational Age by JAYSON (wks/days): 27 Weeks and 4 Days Review of Systems - Review of Systems Constitutional: No problems Breast: No problems ENT: No problems Cardiovascular: No problems Respiratory: No problems Gastrointestinal: No problems Genitourinary: No problems Musculoskeletal: No problems Neurological: No problems Skin: No problems Vital Signs - Temperature Temperature: 96.8 F Temperature Source: Temporal Artery Scan - Pulse Right Brachial Pulse Rate: 85 Pulse Assessment Method: Automatic Cuff - Respirations Respiratory Rate: 17 Oxygen Delivery Method: Room Air - Blood Pressure Right Arm Blood Pressure: 102/56 Blood Pressure Mean: 71 Blood Pressure Source: Automatic Cuff Medical Screen Scoring - Assessment - Baby A Baseline FHR: 140 Heart Rate - NICHD Category: Category I (Normal) Physician Notification - Physician Notified Physician Notified Date: 07/09/22 Physician Notified Time: 14:30 Physician: Gissel Oneal Order Received: Yes - Notification Comment Comment: covid and flu swab sent, results negative, 1st betamethasone given today, pt will return tomorrow for 2nd injection, Maternal Triage Index - Maternal Triage Index Presenting for scheduled procedure w/no complaint: No - Stat/Priority 1 Stat Priority 1: No - Urgent/Priority 2 Urgent Priority 2: No - Prompt/Priority 3 Prompt Priority 3: No - Non-Urgent/Priority 4 Non-Urgent Priority 4: Yes Criteria Met for Priority 4: pt presents to triage for overall not feeling well, she was here last night and received IVF and FFN was done, results were positive, still having back pain rating at 5/10, denies any fevers and sickness other than some nausea which she has had during Disposition - Disposition OB Disposition: Triage, Discharge to home, Written follow up instructions reviewed Discharge Date: 07/09/22 Discharge Time: 16:19 I agree with the RN Medical Screening Exam: Yes Case reviewed; plan agreed upon as documented in EMR&OBIX.: Yes Diagnosis: LABOR WITHOUT DELIVERY, THIRD TRIMESTER
== END 2022-07-09 16:20 | disposition home or self-care (01) ==
LOC: FBPOP 13:39
PROVIDERS: ATTEND Obstetrics & Gynecology
DX: O60.02 Preterm labor without delivery, second trimester (principal); Z3A.27 27 weeks gestation of pregnancy; Z88.8 Allergy status to other drugs, medicaments and biological substances
CPT/HCPCS: 96372; 87636; G0463; J0702; 99213

== ENCOUNTER 2022-07-10 16:21 | Outpatient (CLI) | payer OTHER ==
[2022-07-10] MEDS ORDERED: BETAMET ACET-BETAMETH SOD PHOS 6 MG/ML MDV IM SCH (16:30)
[2022-07-10 17:21] VITALS: BP 115/55; PULSE 79; RESP 18; TEMP 97.6
--- NOTE | 2022-07-11 07:26 | P.MSEPDOC ---
Presenting Problems - Arrival Data Date of Arrival on Unit: 07/10/22 Time of Arrival on Unit: 16:21 Mode of Transport: Ambulatory - Complaint OB-Reason for Admission/Chief Complaint: Celestone Injection Comment: abd cramping Medical History - Information : 3 Para: 2 Number of Living Children: 2 - Gestational Age Gestational Age by JAYSON (wks/days): 27 Weeks and 5 Days Review of Systems - Review of Systems Constitutional: No problems Breast: No problems ENT: No problems Cardiovascular: No problems Respiratory: No problems Gastrointestinal: No problems Genitourinary: No problems Musculoskeletal: No problems Neurological: No problems Skin: No problems Vital Signs - Temperature Temperature: 97.6 F Temperature Source: Temporal Artery Scan - Pulse Right Sitting Brachial Pulse Rate: 79 Pulse Assessment Method: Automatic Cuff - Respirations Respiratory Rate: 18 Oxygen Delivery Method: Room Air O2 Sat by Pulse Oximetry: 100 - Blood Pressure Right Arm Sitting Blood Pressure: 115/55 Blood Pressure Mean: 75 Blood Pressure Source: Automatic Cuff Medical Screen Scoring - Cervical Exam Dilation (cm): 0 Effacement (%): 0 Station: -3 Membranes: Intact - Uterine Contractions Frequency From (mins): 3 Frequency To (mins): 4 Duration From (seconds): 50 Duration To (seconds): 60 Intensity: Mild Resting: Soft to palpation - Assessment - Baby A Baseline FHR: 140 Heart Rate - NICHD Category: Category I (Normal) Physician Notification - Physician Notified Physician Notified Date: 07/10/22 Physician Notified Time: 17:00 Physician: Raj Myers New Order Received: Yes - Notification Comment Comment: discharge Maternal Triage Index - Urgent/Priority 2 Urgent Priority 2: Yes Provider Notified: Raj Myers Provider Notified Time: 17:00 Criteria Met for Priority 2: contractions <34weeks Disposition - Disposition OB Disposition: Discharge to home Discharge Date: 07/10/22 Discharge Time: 17:10 I agree with the RN Medical Screening Exam: Yes Case reviewed; plan agreed upon as documented in EMR&OBIX.: Yes Diagnosis: LABOR WITHOUT DELIVERY, THIRD TRIMESTER (Patient presents to labor and delivery for second Celestone injection. Patient is currently under the care of Dr. Oneal is been here twice previously with contractions and had a positive fibronectin. Dr. Oneal began Celestone previous day. Patient still having contractions with cervix was not dilated. Patient is discharged home after given Celestone follow-up with Dr. Oneal as scheduled.)
== END 2022-07-10 17:10 | disposition home or self-care (01) ==
LOC: FBPOP 16:21
PROVIDERS: ATTEND Obstetrics & Gynecology
DX: O26.893 Other specified pregnancy related conditions, third trimester (principal); O60.03 Preterm labor without delivery, third trimester; Z3A.27 27 weeks gestation of pregnancy; Z88.8 Allergy status to other drugs, medicaments and biological substances
CPT/HCPCS: 96372; G0463; J0702; 99213

== ENCOUNTER 2022-07-14 11:18 | Observation (INO) | payer OTHER ==
[2022-07-14 12:46] LABS: Basophils % (A) 0 %; Eosinophils # (A) 0.1 k/uL (0-0.7); Eosinophils % (A) 1 %; HCT 33.2 % (34.0-46.0); HGB 10.7 gm/dL (11.4-16.0); Hypochromasia Moderate; Lymphocytes # (A) 2.1 k/uL (1.0-4.8); Lymphocytes % (A) 16 %; MCHC 32.4 g/dL (31.0-37.0); MCV 86.5 fL (80.0-100.0); Mean Platelet Volume 8.7; Monocytes # (A) 0.9 k/uL (0-1.0); Monocytes % (A) 7 %; Neutrophils # (A) 9.5 k/uL (1.3-7.7); Neutrophils % (A) 74 %; Platelet Count 298 k/uL (150-450); RBC 3.84 m/uL (3.80-5.40); RDW 12.9 % (11.5-15.5); WBC 12.9 k/uL (3.8-10.6)
[2022-07-14 12:50] VITALS: RESP 16
[2022-07-14 13:09] LABS: Amorphous Sediment,Urine Rare /hpf; Appearance,Urine Clear (Clear); Bacteria,Urine Rare /hpf; Bilirubin,Urine Negative (Negative); Blood,Urine Negative (Negative); Color,Urine Colorless; Glucose,Urine (UA) Negative (Negative); Ketones,Urine Negative (Negative); Leukocyte Esterase,Urine Large (Negative); Mucus,Urine Rare /hpf; Nitrite,Urine Negative (Negative); PH, Urine 6.5 (5.0-8.0); Protein,Urine Negative (Negative); RBC,Urine 7 /hpf (0-5); Specific Gravity,Urine 1.006 (1.001-1.035); Squamous Epithelial Cell,Urine 5 /hpf (0-4); Urobilinogen,Urine <2.0 mg/dL (<2.0); WBC,Urine 4 /hpf (0-5)
--- NOTE | 2022-07-14 13:14 | US ---
EXAMINATION TYPE: US OB >= 14 wk fetus DATE OF EXAM: 07/14/2022 COMPARISON: 07/08/2022 ultrasound. CLINICAL HISTORY: OB requiring ROSANNA and growth, laborPreterm labor TECHNIQUE: Transabdominal (TA) GESTATIONAL AGE / DATING Physician Established: (28 weeks/2 days) EDC: 10/04/2022 Dates by LMP: (28 weeks/2 days) EDC: 10/04/2022 Dates by First Scan: (7 weeks/2 days) EDC: 10/04/2022 Dates by Current Scan: (28 weeks/4 days) EDC: 10/02/2022 SURVEY IUP: Single PLACENTA: Anterior fundal PREVIA: No Previa ROSANNA: 14.9 cm Normal CERVICAL LENGTH (transabdominal: norm > 3.0cm): 3.9 cm BIOMETRY PRESENTATION: Breech LIE: Longitudinal BPD: 7.64 cm cm 30 weeks / 5 days HC: 26.75 cm 29 weeks / 1 days AC: 23.95 cm 28 weeks / 2 days FL: 5.33 cm 28 weeks / 2 days ESTIMATED WEIGHT IN GRAMS: 1238 grams ESTIMATED WEIGHT IN LBS/OZ: 2 lbs. 12 oz. WEIGHT PERCENTAGE BASED ON ESTABLISHED DATES: 45.2% HC/AC: 1.12 cm Normal FL/AC: 22.26 cm Normal HEART RATE: 152 bpm RHYTHM: Normal IMPRESSION: Single live intrauterine as described above.
[2022-07-14 13:26] LABS: Amphetamine Screen,Urine Not Detected (NotDetected); Barbiturate Screen,Urine Not Detected (NotDetected); Benzodiazepines Screen,Urine Not Detected (NotDetected); Cocaine Screen,Urine Not Detected (NotDetected); Methadone Screen, Urine Not Detected (NotDetected); Opiate Screen,Urine Not Detected (NotDetected); Oxycodone Screen, Urine Not Detected (NotDetected); Phencyclidine Screen,Urine Not Detected (NotDetected); Tricyclic Antidepressant,Urine Not Detected (NotDetected); Urn Cannabinoid Scrn Not Detected (NotDetected)
[2022-07-14] MEDS ORDERED: INDOMETHACIN 25 MG CAP PO STA (13:34)
--- NOTE | 2022-07-14 17:16 | P.HPOB ---
History of Present Illness H&P Date: 07/14/22 Chief Complaint: contractions 27 year old at 28 weeks 2 days presents complaining of contractions for several days. She was here on 07/08 and had a +FFN but her cervix was closed and remained closed. She was given steroid injections on 07/09 and 07/10. She continu ed to be uncomfortable and I spoke to [facility] specialist who advised we could do a course of Indomethicin to calm the contractions. ROSANNA today was 14.9cm. heart tones are category 1 and patient is kareen every few minutes on the monitor. Review of Systems All systems: negative Constitutional: Denies chills, Denies fever Eyes: denies blurred vision, denies pain Ears, nose, mouth and throat: Denies headache, Denies sore throat Cardiovascular: Denies chest pain, Denies shortness of breath Respiratory: Denies cough Gastrointestinal: Denies abdominal pain, Denies diarrhea, Denies nausea, Denies vomiting Genitourinary: Denies dysuria, Denies hematuria Musculoskeletal: Denies myalgias Integumentary: Denies pruritus, Denies rash Neurological: Denies numbness, Denies weakness Psychiatric: Denies anxiety, Denies depression Endocrine: Denies fatigue, Denies weight change Past Medical History Past Medical History: Thyroid Disorder Additional Past Medical History / Comment(s): hypothyroid. History of Any Multi-Drug Resistant Organisms: None Reported Past Surgical History: No Surgical Hx Reported Past Anesthesia/Blood Transfusion Reactions: No Reported Reaction Past Psychological History: Anxiety, Depression Smoking Status: Never smoker Past Alcohol Use History: None Reported Past Drug Use History: None Reported - Past Family History Mother Family Medical History: No Reported History Medications and Allergies Home Medications Medication Instructions Recorded Confirmed Type Levothyroxine Sodium 25 mcg PO DAILY 02/21/18 07/14/22 History Pantoprazole [Protonix] 40 mg PO AC-BID #60 tablet. 10/28/20 07/14/22 Rx Propranolol [Inderal] 10 mg PO BID 05/19/21 07/14/22 History Fluticasone Nasal [place] [Flonase 1 spray EA NOSTRIL DAILY 07/09/22 07/14/22 History Nasal [place]] Ondansetron Odt [Zofran Odt] 4 mg PO Q8HR PRN 07/09/22 07/14/22 History Allergies Allergy/AdvReac Type Severity Reaction Status Date / Time alprazolam Allergy Unknown Verified 07/14/22 11:24 midodrine Allergy Rash/Hives Verified 07/14/22 11:24 escitalopram [From Lexapro] AdvReac shaking Verified 07/14/22 11:24 metoclopramide [From Reglan] AdvReac Rapid Verified 07/14/22 11:24 Heart Rate Exam Osteopathic Statement: *. No significant issues noted on an osteopathic structural exam other than those noted in the History and Physical/Consult. Vital Signs Temp Pulse Resp BP Pulse Ox 07/14/22 12:49 96.7 F L 80 16 113/60 07/14/22 12:41 96.7 F L 80 16 113/60 100 Intake and Output 07/14/22 07/14/22 07/14/22 06:59 14:59 22:59 Other: # Voids 1 Weight 62.142 kg Heart: Regular rate and rhythm Lungs: Clear to auscultation bilaterally Abdomen: Soft, nontender Extremities: Negative Homans sign Cervix: closed, thick, -3 Results Result Diagrams: 07/14/22 12:05 07/14/22 12:05 Abnormal Lab Results - Last 24 Hours (Table) 07/14/22 07/14/22 07/14/22 Range/Units 12:05 12:05 12:05 WBC 12.9 H (3.8-10.6) k/uL Hgb 10.7 L (11.4-16.0) gm/dL Hct 33.2 L (34.0-46.0) % Neutrophils # 9.5 H (1.3-7.7) k/uL Glucose 66 L (74-99) mg/dL Ur Leukocyte Esterase Large H (Negative) Urine RBC 7 H (0-5) /hpf Ur Squamous Epith Cells 5 H (0-4) /hpf Amorphous Sediment Rare H (None) /hpf Urine Bacteria Rare H (None) /hpf Urine Mucus Rare H (None) /hpf Assessment and Plan (1) uterine contractions in third trimester, antepartum Current Visit: Yes Status: Acute Code(s): O47.03 - FALSE LABOR BEFORE 37 COMPLETED WEEKS OF GEST, THIRD TRI SNOMED Code(s): 325601557 Plan: 1. monitor for contractions 2. NST q shift 3. indomethicin 50mg stat and then 25mg q 6 hours for 7 doses
[2022-07-14] MEDS: INDOMETHACIN 25 MG CAP PO SCH ×2 (18:00→22:24)
[2022-07-15] MEDS: INDOMETHACIN 25 MG CAP PO SCH ×3 (09:01→20:55)
--- NOTE | 2022-07-15 11:41 | P.PN ---
Progress Note - Text Progress Note Date: 07/15/22 Cheyenne says she still having some contractions but there are a lot less frequent and less intense than they have been. I'm not seeing them on the monitor any more. NSTs have been reactive. We'll continue the course of Indocin until its done tomorrow morning and reevaluate her cervix then.
[2022-07-15 15:37] VITALS: BP 111/60; PULSE 98; TEMP 97
[2022-07-15 15:43] LABS: Hepatitis B Surface Antigen Nonreactive (Nonreactive)
[2022-07-15 22:53] LABS: HIV 2 AB Non-Reactive (Non-Reactive); HIV AB P24 Non-Reactive (Non-Reactive); HIV P24 AG Non-Reactive (Non-Reactive)
[2022-07-16] MEDS: INDOMETHACIN 25 MG CAP PO SCH ×2 (03:02→08:51)
--- NOTE | 2022-07-16 14:13 | US ---
EXAMINATION TYPE: US OB limited DATE OF EXAM: 07/16/2022 COMPARISON: Ultrasound 2 days ago CLINICAL HISTORY: ROSANNA. ROSANNA patient on Indocin. EXAM PERFORMED: Transabdominal (TA) GESTATIONAL AGE / DATING Physician Established: (28 weeks/6 days) EDC: 10/04/2022 No growth performed on today?s study per ordering physician SURVEY ROSANNA: 14.6 cm Normal Ultrasound evidence of premature rupture of membranes? No HEART RATE: 147 bpm RHYTHM: Normal Single live intrauterine gestation redemonstrated. Measured amniotic fluid index within normal limits . IMPRESSION: As above.
[2022-07-16 15:06] LABS: N. gonorrhoeae,PCR Negative (Neg,Equiv); Neisseria Source Urine
[2022-07-16 15:18] LABS: C. trachomatis,PCR Negative (Neg,Equiv); Chlamydia trachomatis Source Urine
== END 2022-07-16 16:50 | disposition home or self-care (01) ==
LOC: 4FBP 11:18
PROVIDERS: ADMIT Obstetrics & Gynecology; ATTEND Obstetrics & Gynecology
DX: O60.03 Preterm labor without delivery, third trimester (principal); O99.343 Other mental disorders complicating pregnancy, third trimester; F32.A Depression, unspecified; F41.9 Anxiety disorder, unspecified; O99.283 Endocrine, nutritional and metabolic diseases complicating pregnancy, third trimester; E03.9 Hypothyroidism, unspecified; Z79.890 Hormone replacement therapy; Z79.899 Other long term (current) drug therapy; Z3A.28 28 weeks gestation of pregnancy
CPT/HCPCS: 86900; 86901; 86762; 82947; 85025; 86850; 87340; 81001; 87491; 87591; 86780; 80306; 87390; 76805; 76815; G0379; G0378 ×3

== ENCOUNTER 2022-08-17 10:01 | Outpatient (CLI) | payer OTHER ==
[2022-08-17] MEDS ORDERED: AMPICILLIN 2,000 MG in SODIUM CHLORIDE 0.9% 100 ML IVPB STA (10:54)
[2022-08-17] MEDS ORDERED: AZITHROMYCIN 500 MG in SODIUM CHLORIDE 0.9% 250 ML IVPB STA (10:55)
[2022-08-17] MEDS ORDERED: LACTATED RINGERS 1,000 ML IV SCH (11:00)
[2022-08-17] MEDS ORDERED: BETAMET ACET-BETAMETH SOD PHOS 6 MG/ML MDV IM SCH (11:00)
--- NOTE | 2022-08-17 11:14 | P.HPOB ---
History of Present Illness H&P Date: 08/17/22 Chief Complaint: PROM 27 year old presents at 33 weeks 2 days with spontaneous rupture of membranes at 7am. She is kareen irregularly. heart tones 135 with moderate variability and reactive. HEr cervix is closed, 50,-3. She had a +FFN at 27 weeks and was given a course of celestone at that time. She was also kept inpatient for a few days on Indocin. Review of Systems All systems: negative Constitutional: Denies chills, Denies fever Eyes: denies blurred vision, denies pain Ears, nose, mouth and throat: Denies headache, Denies sore throat Cardiovascular: Denies chest pain, Denies shortness of breath Respiratory: Denies cough Gastrointestinal: Denies abdominal pain, Denies diarrhea, Denies nausea, Denies vomiting Genitourinary: Denies dysuria, Denies hematuria Musculoskeletal: Denies myalgias Integumentary: Denies pruritus, Denies rash Neurological: Denies numbness, Denies weakness Psychiatric: Denies anxiety, Denies depression Endocrine: Denies fatigue, Denies weight change Past Medical History Past Medical History: Thyroid Disorder Additional Past Medical History / Comment(s): hypothyroid. History of Any Multi-Drug Resistant Organisms: None Reported Past Surgical History: No Surgical Hx Reported Past Anesthesia/Blood Transfusion Reactions: No Reported Reaction Smoking Status: Never smoker - Past Family History Mother Family Medical History: No Reported History Medications and Allergies Home Medications Medication Instructions Recorded Confirmed Type Levothyroxine Sodium 25 mcg PO DAILY 02/21/18 08/17/22 History Pantoprazole [Protonix] 40 mg PO AC-BID #60 tablet. 10/28/20 08/17/22 Rx Propranolol [Inderal] 10 mg PO BID 05/19/21 08/17/22 History Fluticasone Nasal [place] [Flonase 1 spray EA NOSTRIL DAILY 07/09/22 08/17/22 History Nasal [place]] Ondansetron Odt [Zofran Odt] 4 mg PO Q8HR PRN 07/09/22 08/17/22 History Allergies Allergy/AdvReac Type Severity Reaction Status Date / Time alprazolam Allergy Unknown Verified 08/17/22 10:06 midodrine Allergy Rash/Hives Verified 08/17/22 10:06 escitalopram [From Lexapro] AdvReac shaking Verified 08/17/22 10:06 metoclopramide [From Reglan] AdvReac Rapid Verified 08/17/22 10:06 Heart Rate Exam Osteopathic Statement: *. No significant issues noted on an osteopathic structural exam other than those noted in the History and Physical/Consult. Intake and Output 08/16/22 08/17/22 08/17/22 22:59 06:59 14:59 Other: Weight 65.317 kg Heart: Regular rate and rhythm Lungs: Clear to auscultation bilaterally Abdomen: Soft, nontender Extremities: Negative Homans sign Assessment and Plan (1) PROM (premature rupture of membranes) Current Visit: Yes Status: Acute Code(s): O42.90 - YUSUF ROM, 7TH0 BETW RUPT & ONST LABR, UNSP WEEKS OF GEST SNOMED Code(s): 95876162 Plan: 1. start antibiotics 2. transfer to [facility] [place]-accepted by Dr Garvey
[2022-08-17 11:31] LABS: Basophils # (A) 0.1 k/uL (0-0.2); Basophils % (A) 1 %; Eosinophils # (A) 0.1 k/uL (0-0.7); Eosinophils % (A) 1 %; HGB 9.7 gm/dL (11.4-16.0); Hypochromasia Moderate; Lymphocytes # (A) 1.4 k/uL (1.0-4.8); Lymphocytes % (A) 14 %; MCH 24.9 pg (25.0-35.0); MCHC 31.3 g/dL (31.0-37.0); Mean Platelet Volume 8.7; Monocytes # (A) 0.6 k/uL (0-1.0); Monocytes % (A) 5 %; Neutrophils # (A) 7.8 k/uL (1.3-7.7); Neutrophils % (A) 77 %; Platelet Count 267 k/uL (150-450); Poikilocytosis Slight; RBC 3.89 m/uL (3.80-5.40); RDW 14.3 % (11.5-15.5); WBC 10.1 k/uL (3.8-10.6)
[2022-08-17 11:33] LABS: MCV 79.6 fL (80.0-100.0)
[2022-08-17 13:29] VITALS: BP 105/64; PULSE 80; RESP 16; TEMP 97.4
== END 2022-08-17 13:00 | disposition other institution (70) ==
LOC: FBPOP 10:01
PROVIDERS: ATTEND Obstetrics & Gynecology
DX: O42.913 Preterm premature rupture of membranes, unspecified as to length of time between rupture and onset of labor, third trimester (principal); Z3A.33 33 weeks gestation of pregnancy; Z88.8 Allergy status to other drugs, medicaments and biological substances; Z88.1 Allergy status to other antibiotic agents; Z88.2 Allergy status to sulfonamides
CPT/HCPCS: 59025; 96365; 86900; 86901; 85025; 86850; G0463; J0456; J0290; 99214

== ENCOUNTER 2024-11-04 20:51 | Emergency (ER) | payer OTHER ==
[2024-11-04 21:07] VITALS: TEMP 98.9
--- NOTE | 2024-11-04 21:14 | ED ---
Dizziness HPI - General Chief Complaint: Headache Stated Complaint: dizziness Time Seen by Provider: 11/04/24 20:58 Source: patient, EMS, RN notes reviewed, old records reviewed Mode of arrival: EMS Limitations: no limitations - History of Present Illness Initial Comments: This is a 29 female to the ER for evaluation of severe vertiginous symptoms room spinning unable to balance unable to get out of bed today. Symptoms added off for a few days recently turn from vacation noticed symptoms the car noticed symptoms and route. No failure was had similar complaints. Patient has history of vertigo and suffers from POTS disease MD Complaint: dizziness, difficulty walking, other (Significant vertigo) -: days(s) Timing: gradual onset, intermittent Description: sense of movement, "room spinning" History of Same: Yes History of Trauma: No Severity: moderate Worsens With: movement Associated Symptoms: ataxia - Related Data Home Medications Medication Instructions Recorded Confirmed Levothyroxine Sodium 25 mcg PO DAILY 02/21/18 08/17/22 Propranolol [Inderal] 10 mg PO BID 05/19/21 08/17/22 Fluticasone Nasal [place] [Flonase 1 spray EA NOSTRIL DAILY 07/09/22 08/17/22 Nasal [place]] Ondansetron Odt [Zofran Odt] 4 mg PO Q8HR PRN 07/09/22 08/17/22 Previous Rx's Medication Instructions Recorded Pantoprazole [Protonix] 40 mg PO AC-BID #60 tablet. 10/28/20 Allergies Allergy/AdvReac Type Severity Reaction Status Date / Time alprazolam Allergy Unknown Verified 11/04/24 21:07 midodrine Allergy Rash/Hives Verified 11/04/24 21:07 escitalopram [From Lexapro] AdvReac shaking Verified 11/04/24 21:07 metoclopramide [From Reglan] AdvReac Rapid Verified 11/04/24 21:07 Heart Rate Review of Systems ROS Statement: Those systems with pertinent positive or pertinent negative responses have been documented in the HPI. ROS Other: All systems not noted in ROS Statement are negative. Past Medical History Past Medical History: Thyroid Disorder Additional Past Medical History / Comment(s): hypothyroid. POTS History of Any Multi-Drug Resistant Organisms: None Reported Past Surgical History: Section Past Anesthesia/Blood Transfusion Reactions: No Reported Reaction Past Psychological History: Anxiety, Depression Smoking Status: Never smoker Past Alcohol Use History: None Reported Past Drug Use History: None Reported - Past Family History Mother Family Medical History: No Reported History General Exam General appearance: alert, in no apparent distress Head exam: Present: atraumatic, normocephalic, normal inspection Eye exam: Present: normal appearance, PERRL, EOMI. Absent: scleral icterus, conjunctival injection, periorbital swelling ENT exam: Present: normal exam, mucous membranes moist Neck exam: Present: normal inspection. Absent: tenderness, meningismus, lymphadenopathy Respiratory exam: Present: normal lung sounds bilaterally. Absent: respiratory distress, wheezes, rales, rhonchi, stridor Cardiovascular Exam: Present: regular rate, normal rhythm, normal heart sounds. Absent: systolic murmur, diastolic murmur, rubs, gallop, clicks GI/Abdominal exam: Present: soft, normal bowel sounds. Absent: distended, tenderness, guarding, rebound, rigid Extremities exam: Present: normal inspection, full ROM, normal capillary refill. Absent: tenderness, pedal edema, joint swelling, calf tenderness Back exam: Present: normal inspection Neurological exam: Present: alert, oriented X3, CN II-XII intact Psychiatric exam: Present: normal affect, normal mood Skin exam: Present: warm, dry, intact, normal color. Absent: rash Course Vital Signs 11/04/24 20:58 Temperature 98.9 F Pulse Rate 80 Respiratory 18 Rate Blood Pressure 107/69 O2 Sat by Pulse 100 Oximetry - Reevaluation(s) Reevaluation #1: 11/04/24 22:34 Medical records reviewed Reevaluation #2: 11/04/24 22:34 Patient's vertigo is improving Reevaluation #3: 11/04/24 22:34 Patient informed of results questions answered Reevaluation #4: Was pt. sent in by a medical professional or institution (, PA, TEST DESK SUPERVISOR, urgent care, hospital, or half-way...) When possible be specific @ -no Did you speak to anyone other than the patient for history (EMS, parent, family, police, friend...)? What history was obtained from this source @ -no Did you review nursing and triage notes (agree or disagree)? Why? @ -agree Are old charts reviewed (outside hosp., previous admission, EMS record, old EKG, old radiological studies, urgent care reports/EKG's, half-way records)? Report findings @ -yes Differential Diagnosis (chest pain, altered mental status, abdominal pain women, abdominal pain men, vaginal bleeding, weakness, fever, dyspnea, syncope, headache, dizziness, GI bleed, back pain, seizure, CVA, palpatations, mental h ealth, musculoskeletal)? @ -prior EKG interpreted by me (3pts min.). @ -yes X-rays interpreted by me (1pt min.). @ -yes negative for acute disease CT interpreted by me (1pt min.). @ -no U/S interpreted by me (1pt. min.). @ -no What testing was considered but not performed or refused? (CT, X-rays, U/S, labs)? Why? @ -none What meds were considered but not given or refused? Why? @ -none Did you discuss the management of the patient with other professionals (professionals i.e. , PA, TEST DESK SUPERVISOR, lab, RT, psych nurse, forensic social worker, system support developer, teacher, customs officer, oil field caser)? Give summary @ -no Was smoking cessation discussed for >3mins.? @ -no Was critical care preformed (if so, how long)? @ -no Were there social determinants of health that impacted care today? How? (Homelessness, low income, unemployed, alcoholism, drug addiction, transportation, low edu. Level, literacy, decrease access to med. care, intermediate, rehab)? @ -none Was there de-escalation of care discussed even if they declined (Discuss DNR or withdrawal of care, Hospice)? DNR status @ -no What co-morbidities impacted this encounter? (DM, HTN, Smoking, COPD, CAD, Cancer, CVA, ARF, Chemo, Hep., AIDS, mental health diagnosis, sleep apnea, morbid obesity)? @ -none Was patient admitted / discharged? Hospital course, mention meds given and route, prescriptions, significant lab abnormalities, going to OR and other p ertinent info. @ - Undiagnosed new problem with uncertain prognosis? @ -no Drug Therapy requiring intensive monitoring for toxicity (Heparin, Nitro, Insulin, Cardizem)? @ -no Were any procedures done? @ -no Diagnosis/symptom? @ - Acute, or Chronic, or Acute on Chronic? @ -Acute Uncomplicated (without systemic symptoms) or Complicated (systemic symptoms)? @ -Complicated Side effects of treatment? @ -no Exacerbation, Progression, or Severe Exacerbation? @ -exacerbation Poses a threat to life or bodily function? How? (Chest pain, [place], CA, pneumonia, PE, COPD, DKA, ARF, appy, cholecystitis, CVA, Diverticulitis, Homicidal, Suicidal, threat to staff... and all critical care pts) @ -yes Reevaluation #5: Differential Dizziness: Benign paroxysmal positional Vertigo, Meniere's disease, otitis media, acoustic neuroma, vertebrobasilar insufficiency, cerebellar stroke, encephalitis, hypovolemic, arrhythmia, coronary artery syndrome, anemia, this is not meant to be an all-inclusive list EKG Findings - EKG Comments: EKG Findings:: EKG is sinus 89 WI 135 QRS 93 QTc 403 - EKG Results: EKG: interpreted by ANDERS Medical Decision Making - Medical Decision Making 29 female to ER for evaluation recent ear infection complaining of vertiginous symptoms today worse, patient symptoms improved here in the ER able to ambulate can be discharged - Lab Data Result diagrams: 11/04/24 21:44 11/04/24 21:44 Lab Results 11/04/24 11/04/24 11/04/24 Range/Units 21:44 21:44 21:44 WBC 8.0 (3.8-10.6) k/uL RBC 4.48 (3.80-5.40) m/uL Hgb 12.9 (11.4-16.0) gm/dL Hct 39.4 (34.0-46.0) % MCV 88.0 (80.0-100.0) fL MCH 28.8 (25.0-35.0) pg MCHC 32.7 (31.0-37.0) g/dL RDW 12.7 (11.5-15.5) % Plt Count 264 (150-450) k/uL MPV 8.3 Neutrophils % 63 % Lymphocytes % 27 % Monocytes % 7 % Eosinophils % 2 % Basophils % 1 % Neutrophils # 5.0 (1.3-7.7) k/uL Lymphocytes # 2.2 (1.0-4.8) k/uL Monocytes # 0.5 (0-1.0) k/uL Eosinophils # 0.1 (0-0.7) k/uL Basophils # 0.0 (0-0.2) k/uL Sodium 135 L (137-145) mmol/L Potassium 5.3 H (3.5-5.1) mmol/L Chloride 104 (98-107) mmol/L Carbon Dioxide 24 (22-30) mmol/L Anion Gap 7 mmol/L BUN 14 (7-17) mg/dL Creatinine 0.56 (0.52-1.04) mg/dL Est GFR (CKD-EPI)AfAm >90 (>60 ml/min/1.73 sqM) Est GFR (CKD-EPI)NonAf >90 (>60 ml/min/1.73 sqM) Glucose 80 (74-99) mg/dL Calcium 8.8 (8.4-10.2) mg/dL Phosphorus 4.5 (2.5-4.5) mg/dL Magnesium 2.0 (1.6-2.3) mg/dL Total Bilirubin 1.0 (0.2-1.3) mg/dL AST 45 H (14-36) U/L ALT 38 H (4-34) U/L Alkaline Phosphatase 30 L (38-126) U/L Troponin I <0.012 (0.000-0.034) ng/mL Total Protein 7.4 (6.3-8.2) g/dL Albumin 4.4 (3.5-5.0) g/dL Urine Color Urine Appearance (Clear) Urine pH (5.0-8.0) Ur Specific [place] (1.001-1.035) Urine Protein (Negative) Urine Glucose (UA) (Negative) Urine Ketones (Negative) Urine Blood (Negative) Urine Nitrite (Negative) Urine Bilirubin (Negative) Urine Urobilinogen (<2.0) mg/dL Ur Leukocyte Esterase (Negative) Urine RBC (0-5) /hpf Urine WBC (0-5) /hpf Ur Squamous Epith Cells (0-4) /hpf Urine HCG, Qual (Not Detectd) 11/04/24 11/04/24 Range/Units 21:53 21:53 WBC (3.8-10.6) k/uL RBC (3.80-5.40) m/uL Hgb (11.4-16.0) gm/dL Hct (34.0-46.0) % MCV (80.0-100.0) fL MCH (25.0-35.0) pg MCHC (31.0-37.0) g/dL RDW (11.5-15.5) % Plt Count (150-450) k/uL MPV Neutrophils % % Lymphocytes % % Monocytes % % Eosinophils % % Basophils % % Neutrophils # (1.3-7.7) k/uL Lymphocytes # (1.0-4.8) k/uL Monocytes # (0-1.0) k/uL Eosinophils # (0-0.7) k/uL Basophils # (0-0.2) k/uL Sodium (137-145) mmol/L Potassium (3.5-5.1) mmol/L Chloride (98-107) mmol/L Carbon Dioxide (22-30) mmol/L Anion Gap mmol/L BUN (7-17) mg/dL Creatinine (0.52-1.04) mg/dL Est GFR (CKD-EPI)AfAm (>60 ml/min/1.73 sqM) Est GFR (CKD-EPI)NonAf (>60 ml/min/1.73 sqM) Glucose (74-99) mg/dL Calcium (8.4-10.2) mg/dL Phosphorus (2.5-4.5) mg/dL Magnesium (1.6-2.3) mg/dL Total Bilirubin (0.2-1.3) mg/dL AST (14-36) U/L ALT (4-34) U/L Alkaline Phosphatase (38-126) U/L Troponin I (0.000-0.034) ng/mL Total Protein (6.3-8.2) g/dL Albumin (3.5-5.0) g/dL Urine Color Colorless Urine Appearance Clear (Clear) Urine pH 6.5 (5.0-8.0) Ur Specific [place] 1.012 (1.001-1.035) Urine Protein Negative (Negative) Urine Glucose (UA) Negative (Negative) Urine Ketones Trace H (Negative) Urine Blood Negative (Negative) Urine Nitrite Negative (Negative) Urine Bilirubin Negative (Negative) Urine Urobilinogen <2.0 (<2.0) mg/dL Ur Leukocyte Esterase Small H (Negative) Urine RBC <1 (0-5) /hpf Urine WBC 3 (0-5) /hpf Ur Squamous Epith Cells <1 (0-4) /hpf Urine HCG, Qual Not Detected (Not Detectd) Disposition Clinical Impression: Vertigo Disposition: HOME SELF-CARE Condition: Good Instructions (If sedation given, give patient instructions): Vertigo (ED) Referrals: Danyel Morales MD [Primary Care Provider] - 1-2 days Time of Disposition: 22:30
[2024-11-04] MEDS: ONDANSETRON 4 MG/2 ML VIAL IVP STA (21:53)
[2024-11-04] MEDS: diphenhydrAMINE 50 MG/ML 1 ML VIAL IVP STA (21:56)
[2024-11-04 21:57] LABS: Basophils % (A) 1 %; Eosinophils # (A) 0.1 k/uL (0-0.7); Eosinophils % (A) 2 %; HCT 39.4 % (34.0-46.0); HGB 12.9 gm/dL (11.4-16.0); Lymphocytes # (A) 2.2 k/uL (1.0-4.8); Lymphocytes % (A) 27 %; MCH 28.8 pg (25.0-35.0); MCHC 32.7 g/dL (31.0-37.0); Mean Platelet Volume 8.3; Monocytes # (A) 0.5 k/uL (0-1.0); Monocytes % (A) 7 %; Neutrophils % (A) 63 %; Platelet Count 264 k/uL (150-450); RBC 4.48 m/uL (3.80-5.40); RDW 12.7 % (11.5-15.5)
[2024-11-04] MEDS: MECLIZINE 12.5 MG TAB PO STA (21:58)
[2024-11-04] MEDS: SODIUM CHLORIDE 0.9% 1,000 ML IV ONE (21:59)
[2024-11-04 22:10] LABS: ALT 38 U/L (4-34); African American GFR (CKD) >90 (>60 ml/min/1.73 sqM); Anion Gap 7 mmol/L; Blood Urea Nitrogen 14 mg/dL (7-17); Calcium 8.8 mg/dL (8.4-10.2); Carbon Dioxide 24 mmol/L (22-30); Chloride 104 mmol/L (98-107); Glucose 80 mg/dL (74-99); Non-African American GFR(CKD) >90 (>60 ml/min/1.73 sqM); Sodium 135 mmol/L (137-145)
[2024-11-04 22:19] LABS: Phosphorus 4.5 mg/dL (2.5-4.5); Potassium 5.3 mmol/L (3.5-5.1)
[2024-11-04 22:20] LABS: AST 45 U/L (14-36); Albumin 4.4 g/dL (3.5-5.0); Alkaline Phosphatase 30 U/L (38-126); Total Protein 7.4 g/dL (6.3-8.2)
[2024-11-04 22:25] LABS: Appearance,Urine Clear (Clear); Bilirubin,Urine Negative (Negative); Blood,Urine Negative (Negative); Color,Urine Colorless; Glucose,Urine (UA) Negative (Negative); Ketones,Urine Trace (Negative); Leukocyte Esterase,Urine Small (Negative); Nitrite,Urine Negative (Negative); PH, Urine 6.5 (5.0-8.0); Protein,Urine Negative (Negative); RBC,Urine <1 /hpf (0-5); Specific Gravity,Urine 1.012 (1.001-1.035); Squamous Epithelial Cell,Urine <1 /hpf (0-4); Urobilinogen,Urine <2.0 mg/dL (<2.0); WBC,Urine 3 /hpf (0-5)
[2024-11-04] MEDS: ACETAMINOPHEN IV (For NPO) 1,000 MG in EMPTY BAG 1 BAG IVPB STA (22:42)
[2024-11-04 23:06] VITALS: BP 104/57; PULSE 62; RESP 17
== END 2024-11-04 23:06 | disposition home or self-care (01) ==
LOC: EC 20:51
DX: R42 Dizziness and giddiness (principal); Z88.8 Allergy status to other drugs, medicaments and biological substances
CPT/HCPCS: 36415; 93005; 80053; 83735; 84100; 84484; 85025; 81001; 81025; 99284; 96365; 96375 ×2; 96361; J1200; J2405; J0131

== ENCOUNTER 2025-02-21 16:06 | Emergency (ER) | payer OTHER ==
--- NOTE | 2025-02-21 16:33 | ED ---
Dizziness HPI - General Source: patient Mode of arrival: ambulatory Limitations: no limitations <Che Givens - Last Filed: 02/21/25 19:57> <Suzette - Last Filed: 02/21/25 22:33> - General Stated Complaint: Dizziness - History of Present Illness Initial Comments: 29-year-old female with history of hypothyroidism, POTS, depression, anxiety here for dizziness. She reported that she was at work then suddenly while walking she experienced nausea, sweating, fatigue and lightheadeness, and dizziness like the room was spinning that lasted for 30 minutes. She was in a chiropractor clinic and they had her neck manipulated at that time and her dizziness got worse. She was also alerted that she had a high heart rate on apple watch with palpitations. She tried using an ice pack but and taking her Zofran but did not work. She also reported that she may have a UTI as she had increased urinary frequency and cramping pain when urinating that started a week and a half ago. No fever, LOC, fall or trauma, chest pain, abdominal pain, vomiting, diarrhea, hematuria, flank pain. (Che Givens) - Related Data Home Medications Medication Instructions Recorded Confirmed Levothyroxine Sodium 25 mcg PO DAILY 02/21/18 08/17/22 Propranolol [Inderal] 10 mg PO BID 05/19/21 08/17/22 Fluticasone Nasal [place] [Flonase 1 spray EA NOSTRIL DAILY 07/09/22 08/17/22 Nasal [place]] Ondansetron Odt [Zofran Odt] 4 mg PO Q8HR PRN 07/09/22 08/17/22 Previous Rx's Medication Instructions Recorded Pantoprazole [Protonix] 40 mg PO AC-BID #60 tablet. 10/28/20 Cephalexin [Keflex] 500 mg PO Q12HR 5 Days #10 cap 02/21/25 Allergies Allergy/AdvReac Type Severity Reaction Status Date / Time alprazolam Allergy Unknown Verified 11/04/24 21:07 midodrine Allergy Rash/Hives Verified 11/04/24 21:07 escitalopram [From Lexapro] AdvReac shaking Verified 11/04/24 21:07 metoclopramide [From Reglan] AdvReac Rapid Verified 11/04/24 21:07 Heart Rate Review of Systems ROS Other: All systems not noted in ROS Statement are negative. <Che Givens - Last Filed: 02/21/25 19:57> ROS Other: All systems not noted in ROS Statement are negative. <Suzette Woodall - Last Filed: 02/21/25 22:33> ROS Statement: Those systems with pertinent positive or pertinent negative responses have been documented in the HPI. Past Medical History Past Medical History: Thyroid Disorder Additional Past Medical History / Comment(s): hypothyroid. POTS History of Any Multi-Drug Resistant Organisms: None Reported Past Surgical History: Section Past Anesthesia/Blood Transfusion Reactions: No Reported Reaction Past Psychological History: Anxiety, Depression Smoking Status: Never smoker Past Alcohol Use History: None Reported Past Drug Use History: None Reported - Past Family History Mother Family Medical History: No Reported History <Che Gievns - Last Filed: 02/21/25 19:57> General Exam Limitations: no limitations <Che Givens - Last Filed: 02/21/25 19:57> - General Exam Comments Initial Comments: Physical examination: Vital signs reviewed General: non toxic, no distress, appears at stated age Head: atraumatic, normocephalic, symmetric Eyes: Anicteric, EOM intact, PERRLA Neck: trachea midline, supple, no masses or swelling Mouth: no lip lesion, mucus membranes moist Cardiovascular: S1S2 reg, no murmur Lungs: CTA bilateral, no rhonchi, no rales, no accessory muscle use Abdominal: soft, nondistended, nontender to palpation, no guarding, negative CVA tenderness : General Genitalia normal without lesions, swelling, masses, erythema. Vagina pink and moist without lesions or discharge, cervix nontender, normal color without lesions or erosions, white non foul-smelling discharge noted from the cervix, uterus anteverted, nontender, ovaries nontender without palpable ma sses or enlargement. Cervical os closed with no bleeding noted. Cervical motion tenderness negative. Ext: muscle strength 5 out of 5 in all 4 extremities grossly, no gross muscle atrophy, no contractures, positive dorsalis pedis pulse bilateral, no edema Neuro: no gross focal neuro deficits, CN I to XII intact grossly, Melodie-hallpike maneuver negative Psych: Alert and oriented x3, appropriate affect and mood (Che Givens) Course <Che Givens - Last Filed: 02/21/25 19:57> Vital Signs 02/21/25 02/21/25 02/21/25 16:12 18:55 19:42 Temperature 98.7 F Pulse Rate 90 84 79 Respiratory 20 16 16 Rate Blood Pressure 131/84 114/77 113/68 O2 Sat by Pulse 100 99 98 Oximetry 02/21/25 20:01 Temperature 98.4 F Pulse Rate Respiratory Rate Blood Pressure O2 Sat by Pulse Oximetry - Reevaluation(s) Reevaluation #1: 02/21/25 17:32 Pelvic exam done with consent patient and her partner in room. No new symptoms or complaints at this time. (Che Givens) EKG Findings - EKG Comments: EKG Findings:: Sinus rhythm at a rate of 75 bpm, normal axis, AK interval 134 MS, QRS duration 102 MS, QTc 391 MS, no ST-T changes, good R wave progression <Che Givens - Last Filed: 02/21/25 19:57> Medical Decision Making - Lab Data Result diagrams: 02/21/25 17:45 02/21/25 17:45 <Che Givens - Last Filed: 02/21/25 19:57> - Lab Data Result diagrams: 02/21/25 17:45 02/21/25 17:45 <Suzette Woodall - Last Filed: 02/21/25 22:33> - Medical Decision Making Was pt. sent in by a medical professional or institution (, PA, [employer], urgent care, hospital, or [facility]...) When possible be specific @ -No Did you speak to anyone other than the patient for history (EMS, parent, family, police, friend...)? What history was obtained from this source @ -Partner at bedside Did you review nursing and triage notes (agree or disagree)? Why? @ -I reviewed and agree with nursing and triage notes Were old charts reviewed (outside hosp., previous admission, EMS record, old EKG, old radiological studies, urgent care reports/EKG's, [facility] records)? Report findings @ -Old charts were reviewed Differential Diagnosis? @ -Differential Dizziness: Benign paroxysmal positional Vertigo, Meniere's disease, otitis media, acoustic neuroma, vertebrobasilar insufficiency, cerebellar stroke, encephalitis, hypovolemic, arrhythmia, coronary artery syndrome, anemia, this is not meant to be an all-inclusive list EKG interpreted by me (3pts min.). @ -As above X-rays interpreted by me (1pt min.). @ -None done CT interpreted by me (1pt min.). @ -None done U/S interpreted by me (1pt. min.). @ -None done What testing was considered but not performed or refused? (CT, X-rays, U/S, labs)? Why? @ -None What meds were considered but not given or refused? Why? @ -Antivert was recommended for dizziness. Patient did not want to take Antivert as her dizziness has improved at bedside Did you discuss the management of the patient with other professionals (professionals i.e. , PA, [employer], lab, RT, psych nurse, social media community manager, firer low pressure, teacher, security control room officer, pillowcase cutter)? Give summary @ -Dr. Woodall, supervising physician Was smoking cessation discussed for >3mins.? @ -No Was critical care preformed (if so, how long)? @ -No Were there social determinants of health that impacted care today? How? (Homelessness, low income, unemployed, alcoholism, drug addiction, transportation, low edu. Level, literacy, decrease access to med. care, [facility], re hab)? @ -No Was there de-escalation of care discussed even if they declined (Discuss DNR or withdrawal of care, Hospice)? DNR status @ -No What co-morbidities impacted this encounter? (DM, HTN, Smoking, COPD, CAD, Cancer, CVA, ARF, Chemo, Hep., AIDS, mental health diagnosis, sleep apnea, morbid obesity)? @ -None Was patient admitted / discharged? Hospital course, mention meds given and route, prescriptions, significant lab abnormalities, going to OR and other pertinent info. @ -Discharge. Patient was given IV fluids, Zofran IV once, CTA brain and CT brain without contrast. Patient dizziness has improved but she did not want to take the Antivert. CTA brain CT brain without contrast negative for bleed, fractures, dissection, or stenosis. Patient's symptoms been stable during her stay and no new complications or symptoms have occurred. She is advised to follow-up with her PCP and sales designer closely she is sent home with Keflex for 5 days. She has requested a work note and we recommended that she return to work on Sunday 02/25 Undiagnosed new problem with uncertain prognosis? @ -No Drug Therapy requiring intensive monitoring for toxicity (Heparin, Nitro, Insulin, Cardizem)? @ -No Were any procedures done? @ -No Diagnosis/symptom? @ -Default Acute, or Chronic, or Acute on Chronic? @ -Acute Uncomplicated (without systemic symptoms) or Complicated (systemic symptoms)? @ -Uncomplicated Side effects of treatment? @ -No Exacerbation, Progression, or Severe Exacerbation? @ -Exacerbation Poses a threat to life or bodily function? How? (Chest pain, USA, HI, pneumonia, PE, COPD, DKA, ARF, appy, cholecystitis, CVA, Diverticulitis, Homicidal, Suicidal, threat to staff... and all critical care pts) @ -No (Che Givens) I personally saw the patient and performed the critical portion of the service. I discussed the patient care with the resident physician. I directed management, care planning and final disposition of the patient. This includes, but not limited to, review of all lab work, radiological studies, EKG's, consultations, vital signs, and nursing notes. EKG interpreted by me (3pts min.) @Sinus rhythm, rate 75 bpm intervals in acceptable limits normal axis, no significant ST elevations or depressions, no arrhythmia CT interpreted by me ( 1pt min.) @Reviewed CT brain I see no evidence of hemorrhage or mass effect, reviewed CTA I see no evidence of occlusion or dissection I agree with radiologist interpretation U/S interpreted by me (1 pt min.) @None Critical care time of 0 minutes excluding separately billable procedures was spent in conjunction with critical care activities provided by the Resident and Attending simultaneously. I was present during no procedures for all critical portions of the procedure and as immediately available to furnish service during the entire procedure. (Suzette Woodall) - Lab Data Lab Results 02/21/25 02/21/25 02/21/25 Range/Units 17:45 17:45 17:45 WBC 10.51 H (4.50-10.00) 10*3/uL RBC 4.99 (4.10-5.20) 10*6/uL Hgb 14.7 (12.0-15.0) g/dL Hct 43.0 (37.2-46.3) % MCV 86.2 (80.0-97.0) fL MCH 29.5 (27.0-32.0) pg MCHC 34.2 (32.0-37.0) g/dL Plt Count 376 (140-440) 10*3/uL MPV 10.0 (9.5-12.2) fL Immature Gran % (Auto) 0.2 % Neutrophils % 69.2 % Lymphocytes % 19.8 % Monocytes % 8.5 % Eosinophils % 1.6 % Basophils % 0.7 % Immature Gran # 0.02 (0.00-0.04) 10*3/uL Neutrophils # 7.28 (1.80-7.70) 10*3/uL Lymphocytes # 2.08 (0.90-5.00) 10*3/uL Monocytes # 0.89 (0.20-1.00) 10*3/uL Eosinophils # 0.17 (0.04-0.35) 10*3/uL Basophils # 0.07 (0.00-0.10) 10*3/uL Sodium (137-145) mmol/L Potassium (3.5-5.1) mmol/L Chloride (98-107) mmol/L Carbon Dioxide (22-30) mmol/L Anion Gap mmol/L BUN (7-17) mg/dL Creatinine (0.52-1.04) mg/dL Est GFR (CKD-EPI)AfAm (>60 ml/min/1.73 sqM) Est GFR (CKD-EPI)NonAf (>60 ml/min/1.73 sqM) Glucose (74-99) mg/dL POC Glucose (mg/dL) (70-110) mg/dL POC Glu Proof Coin Collector ID Calcium (8.4-10.2) mg/dL Total Bilirubin (0.2-1.3) mg/dL AST (14-36) U/L ALT (4-34) U/L Alkaline Phosphatase (38-126) U/L Total Protein (6.3-8.2) g/dL Albumin (3.5-5.0) g/dL Urine Color Colorless Urine Appearance Turbid H (Clear) Urine pH 6.0 (5.0-8.0) Ur Specific [place] 1.008 (1.001-1.035) Urine Protein Negative (Negative) Urine Glucose (UA) Negative (Negative) Urine Ketones Negative (Negative) Urine Blood Negative (Negative) Urine Nitrite Negative (Negative) Urine Bilirubin Negative (Negative) Urine Urobilinogen <2.0 (<2.0) mg/dL Ur Leukocyte Esterase Moderate H (Negative) Urine RBC 1 (0-5) /hpf Urine WBC 6 H (0-5) /hpf Ur Squamous Epith Cells 4 (0-4) /hpf Urine Bacteria Rare H (None) /hpf Urine Mucus Rare H (None) /hpf Urine HCG, Qual Not Detected (Not Detectd) 02/21/25 02/21/25 02/21/25 Range/Units 17:45 17:51 19:47 WBC (4.50-10.00) 10*3/uL RBC (4.10-5.20) 10*6/uL Hgb (12.0-15.0) g/dL Hct (37.2-46.3) % MCV (80.0-97.0) fL MCH (27.0-32.0) pg MCHC (32.0-37.0) g/dL Plt Count (140-440) 10*3/uL MPV (9.5-12.2) fL Immature Gran % (Auto) % Neutrophils % % Lymphocytes % % Monocytes % % Eosinophils % % Basophils % % Immature Gran # (0.00-0.04) 10*3/uL Neutrophils # (1.80-7.70) 10*3/uL Lymphocytes # (0.90-5.00) 10*3/uL Monocytes # (0.20-1.00) 10*3/uL Eosinophils # (0.04-0.35) 10*3/uL Basophils # (0.00-0.10) 10*3/uL Sodium 141 (137-145) mmol/L Potassium 4.7 (3.5-5.1) mmol/L Chloride 99 (98-107) mmol/L Carbon Dioxide 27 (22-30) mmol/L Anion Gap 15 mmol/L BUN 14 (7-17) mg/dL Creatinine 0.57 (0.52-1.04) mg/dL Est GFR (CKD-EPI)AfAm >90 (>60 ml/min/1.73 sqM) Est GFR (CKD-EPI)NonAf >90 (>60 ml/min/1.73 sqM) Glucose 72 L (74-99) mg/dL POC Glucose (mg/dL) 74 149 H (70-110) mg/dL POC Glu Proof Coin Collector ID Francis Jaime Calcium 10.3 H (8.4-10.2) mg/dL Total Bilirubin 0.4 (0.2-1.3) mg/dL AST 24 (14-36) U/L ALT 24 (4-34) U/L Alkaline Phosphatase 56 (38-126) U/L Total Protein 8.4 H (6.3-8.2) g/dL Albumin 5.0 (3.5-5.0) g/dL Urine Color Urine Appearance (Clear) Urine pH (5.0-8.0) Ur Specific [place] (1.001-1.035) Urine Protein (Negative) Urine Glucose (UA) (Negative) Urine Ketones (Negative) Urine Blood (Negative) Urine Nitrite (Negative) Urine Bilirubin (Negative) Urine Urobilinogen (<2.0) mg/dL Ur Leukocyte Esterase (Negative) Urine RBC (0-5) /hpf Urine WBC (0-5) /hpf Ur Squamous Epith Cells (0-4) /hpf Urine Bacteria (None) /hpf Urine Mucus (None) /hpf Urine HCG, Qual (Not Detectd) Disposition Is patient prescribed a controlled substance at d/c from ED?: No <Che Givens - Last Filed: 02/21/25 19:57> <Suzette Woodall - Last Filed: 02/21/25 22:33> Clinical Impression: UTI (urinary tract infection), POTS (postural orthostatic tachycardia syndrome) Disposition: HOME SELF-CARE Condition: Good Instructions (If sedation given, give patient instructions): Dizziness (ED) Additional Instructions: Every disease is a spectrum and a small chance still exists that a serious condition could develop, for this reason, please monitor yourself closely for new, changing or worsening symptoms, symptoms that persist beyond 48 hours, worse flank pain, unable to keep down your antibiotics, persistent symptoms after completion of antibiotics, strokelike symptoms such as severe headache, changes in vision, numbness, weakness or slurred speech, chest pain or difficulty in breathing , fever, inability to tolerate/keep down fluids or your medications, inability to follow up with outpatient providers as instructed and should you experience these symptoms or should you have any further concerns for your wellbeing please return to the ED or call 911 immediately. Drink plenty of fluids. Get plenty of rest. Avoid neck manipulation therapies this could exacerbate your symptoms. PLEASE call your primary care physician as soon as possible to arrange / discuss plan for followup appointment. Appointment in the next 1-3 days is strongly encouraged if possible. PLEASE let us know here before you leave if there is anything further we can do to be of any assistance. Take care and feel Better! Prescriptions: Cephalexin [Keflex] 500 mg PO Q12HR 5 Days #10 cap Referrals: Danyel Morales MD [Primary Care Provider] - 1-2 days Tyrese Marie MD [Medical Doctor] - 1-2 days
[2025-02-21] MEDS: LACTATED RINGERS 500 ML IV ONE (17:51)
[2025-02-21] MEDS: ONDANSETRON 4 MG/2 ML VIAL IVP STA (17:52)
[2025-02-21] MEDS: KETOROLAC 15 MG/ML 1 ML VIAL IVP STA (17:52)
[2025-02-21 17:53] LABS: Glucose,Whole Blood 74 mg/dL (70-110)
[2025-02-21] MEDS: MECLIZINE 12.5 MG TAB PO STA (17:56)
[2025-02-21 17:59] LABS: Basophils # (A) 0.07 10*3/uL (0.00-0.10); Basophils % (A) 0.7 %; Eosinophils # (A) 0.17 10*3/uL (0.04-0.35); Eosinophils % (A) 1.6 %; HCT 43.0 % (37.2-46.3); HGB 14.7 g/dL (12.0-15.0); Lymphocytes # (A) 2.08 10*3/uL (0.90-5.00); Lymphocytes % (A) 19.8 %; MCH 29.5 pg (27.0-32.0); MCHC 34.2 g/dL (32.0-37.0); MCV 86.2 fL (80.0-97.0); Monocytes # (A) 0.89 10*3/uL (0.20-1.00); Monocytes % (A) 8.5 %; Neutrophils # (A) 7.28 10*3/uL (1.80-7.70); Neutrophils % (A) 69.2 %; Platelet Count 376 10*3/uL (140-440); RBC 4.99 10*6/uL (4.10-5.20); RDW 12.4 % (11.5-14.5); WBC 10.51 10*3/uL (4.50-10.00)
[2025-02-21 18:04] LABS: Bacteria,Urine Rare /hpf; Bilirubin,Urine Negative (Negative); Blood,Urine Negative (Negative); Color,Urine Colorless; Glucose,Urine (UA) Negative (Negative); Ketones,Urine Negative (Negative); Leukocyte Esterase,Urine Moderate (Negative); Mucus,Urine Rare /hpf; Nitrite,Urine Negative (Negative); PH, Urine 6.0 (5.0-8.0); Protein,Urine Negative (Negative); RBC,Urine 1 /hpf (0-5); Specific Gravity,Urine 1.008 (1.001-1.035); Squamous Epithelial Cell,Urine 4 /hpf (0-4); Urobilinogen,Urine <2.0 mg/dL (<2.0); WBC,Urine 6 /hpf (0-5)
[2025-02-21 18:09] LABS: ALT 24 U/L (4-34); AST 24 U/L (14-36); African American GFR (CKD) >90 (>60 ml/min/1.73 sqM); Albumin 5.0 g/dL (3.5-5.0); Alkaline Phosphatase 56 U/L (38-126); Anion Gap 15 mmol/L; Blood Urea Nitrogen 14 mg/dL (7-17); Calcium 10.3 mg/dL (8.4-10.2); Carbon Dioxide 27 mmol/L (22-30); Chloride 99 mmol/L (98-107); Glucose 72 mg/dL (74-99); Non-African American GFR(CKD) >90 (>60 ml/min/1.73 sqM); Potassium 4.7 mmol/L (3.5-5.1); Sodium 141 mmol/L (137-145); Total Protein 8.4 g/dL (6.3-8.2)
[2025-02-21 18:58] VITALS: RESP 16
[2025-02-21 19:43] VITALS: BP 113/68; PULSE 79
--- NOTE | 2025-02-21 19:43 | CT ---
EXAMINATION TYPE: CT brain wo con CT DLP: 1087 mGycm, Automated exposure control for dose reduction was used. DATE OF EXAM: 02/21/2025 7:28 PM COMPARISON: None. CLINICAL INDICATION:Female, 29 years old with history of new headaches, JOYNER and head pressure. Dizzine ss. Hx of pots. TECHNIQUE: Brain: Multiple axial CT images of the brain were obtained without IV contrast. . Coronal and sagitta l reformats reviewed. FINDINGS: Brain: Extra-axial spaces: No abnormal extra-axial fluid collections. Ventricular system: Within normal limits Cerebral parenchyma: No acute intraparenchymal hemorrhage or mass effect. The cuevas-white junction is well differentiated. Cerebellum: Unremarkable. Mass effect: No evidence of midline shift. Intracranial vasculature: unremarkable Soft tissues: Normal. Calvarium/osseous structures: No depressed skull fracture. Paranasal sinuses and mastoid air cells: Clear Visualized orbits: Orbital contents are intact. IMPRESSION: No acute intracranial process. [facility], , 02/21/2025 7:40 PM
[2025-02-21 19:48] LABS: Glucose,Whole Blood 149 mg/dL (70-110)
--- NOTE | 2025-02-21 19:49 | CT ---
EXAMINATION TYPE: CT angio head neck CT DLP: 445.7 mGycm, Automated exposure control for dose reduction was used. DATE OF EXAM: 02/21/2025 7:31 PM COMPARISON: CT brain 02/21/2025. CLINICAL INDICATION:Female, 29 years old with history of new headaches, dizziness on neck manipulatio n; PHH, JOYNER and head pressure. Dizziness. Hx of pots. TECHNIQUE: Axially acquired helical CT angiogram of the head and neck was obtained with contrast util izing 75 cc of Isovue-370 administered intravenously. Axial images are supplemented with 3D reconstru ctions which were post-processed at an independent workstation. NASCET criteria used. MIP imaging performed on a separate workstation and submitted for review. FINDINGS: CTA HEAD: No evidence of acute intracranial hemorrhage, mass effect, or midline shift. The ventricles, sulci, a nd cisterns are unremarkable. The visualized portions of the internal carotid arteries, middle cerebral arteries, anterior cerebral arteries, and posterior cerebral arteries are patent. The basilar and vertebral arteries are patent. The vertebral arteries are codominant. CTA NECK: Right Carotid System: The common carotid artery and external carotid artery are patent. The carotid bifurcation demonstrate s no evidence of hemodynamically significant stenosis. The remaining portions of the internal carotid artery demonstrate normal size without significant narrowing. Left Carotid System: The common carotid artery and external carotid artery are patent. The carotid bifurcation demonstrate s no evidence of hemodynamically significant stenosis. The remaining portions of the internal carotid artery demonstrate normal size without significant narrowing. Vertebral arteries are patent without evidence hemodynamically significant stenosis. There is a three-vessel aortic arch. The origins of the great vessels are patent. No evidence of hemo dynamically significant stenosis. IMPRESSION: 1. No evidence of dissection of the cervical internal carotid arteries or vertebral arteries or any e vidence of significant stenosis at the carotid bifurcations. 2. No evidence of high-grade stenosis or intracranial aneurysm. [facility], , 02/21/2025 7:47 PM
[2025-02-21 20:03] VITALS: TEMP 98.4
== END 2025-02-21 20:06 | disposition home or self-care (01) ==
LOC: EC 16:06
DX: N39.0 Urinary tract infection, site not specified (principal); G90.A Postural orthostatic tachycardia syndrome [POTS]; Z88.8 Allergy status to other drugs, medicaments and biological substances
CPT/HCPCS: 36415; 93005; 80053; 85025; 81001; 81025; 70496; 70450; 70498; 99285; 96374; 96375; 96361; J2405; J1885; Q9967